=== PATIENT | female | born 1945 | race Caucasian/White ===

== ENCOUNTER 2024-05-07 10:20 | Observation (INO) ==
--- NOTE | 2024-05-07 10:58 | Emergency Department Note ---
Impression & Plan Chronic kidney disease (CKD), stage IV (severe), Constipation ED Provider Note NAME: CASTILLO ROGERS AGE: 79 SEX: F : 1945 ARRIVES VIA: Walk-In INFORMANT: Patient, ED PROVIDER(S): Harpreet Alvarez DO CHIEF COMPLAINT: Constipation HPI: The patient is a 79-year-old female who presented to the emergency department for constipation. She has had several days of constipation. She has tried zabb-iso-cznfshq remedies without relief. She called her family doctor but was not able to be seen. Patient denies having any vomiting or fever. She denies having any significant abdominal pain but does note some cramping. ROS: See above HPI for pertinent positives & negatives. A total of 10 systems reviewed and were otherwise negative. PAST MEDICAL HISTORY: See Below PAST SURGICAL HISTORY: See Below FAMILY HISTORY: See Below SOCIAL HISTORY: See Below HOME MEDICATIONS: See Below ALLERGIES: See Below VITALS: See Below PHYSICAL EXAMINATION: GENERAL: Patient is awake alert in no acute distress patient is resting comfortably and showing no signs of anxiety EYES: The conjunctivae are clear. The pupils are round and reactive. EARS, NOSE, MOUTH AND THROAT: The nose is without any evidence of any deformity. NECK: The neck is nontender and supple. RESPIRATORY: Normal respiratory effort is noted there is no evidence of wheezing rhonchi or rales CARDIOVASCULAR: Regular rate and rhythm noted there no murmurs rubs or gallops normal S1 normal S2. GASTROINTESTINAL: The abdomen is soft and mildly distended. There is no tenderness guarding rigidity. MUSCULOSKELETAL/EXTREMITIES: There is no evidence of gross deformity full range of motion is noted in the hips and shoulders. SKIN: Pedal edema was noted bilaterally. Skin was warm. Venous stasis changes were noted. NEUROLOGIC: Patient is awake alert and oriented x3 MEDICAL DECISION MAKING: The patient is a 79-year-old female who presented to the emergency department for constipation. The patient has a history of end-stage renal disease. Abdominal exam was not consistent with acute surgical abdomen. The patient was in the emergency department when her primary mail list processor called and asked me to keep her in the hospital be because she needs inpatient dialysis. I discussed the patient's condition with the on-call [facility] hospitalist. They have agreed to evaluate the patient in the emergency department. Triage Nursing notes reviewed. Prior medical records reviewed Vital Signs: reviewed and remarkable for no significant abnormalities Differential diagnosis: Functional constipation, impaction, obstruction, volvulus, metabolic abnormality, infection, neurologic, as well as other pathologies. ER treatment provided: See below Diagnostics interpreted by me: ECG: EKG was obtained in the emergency department. My interpretation is ventricular paced rhythm at 75 bpm. [place] beats were also noted. Left bundle branch block pattern was favored. No previous tracings available. Cardiac Monitoring: An order was placed for continuous cardiac monitoring. The monitor shows a rate of 77 bpm with sinus rhythm. Laboratory studies: As stated above and show below. Imaging studies: See below. Radiographic imaging was reviewed by myself Consultation(s): I discussed this case with Dr. Frederick who is on for nephrology. I discussed this case with the on-call [facility] hospitalist group. Past Med/Surg History Problem List (Updated 05/07/24 @ 14:54 by Harpreet Alvarez DO) Constipation (Acute) MRSA (methicillin resistant staph aureus) culture positive Chronic pain of both lower extremities Hemodialysis patient Chronic kidney disease (CKD), stage IV (severe) (Acute) Abnormal ankle brachial index (Acute) Venous stasis ulcer (Acute) Traumatic wound (Acute) Venous stasis ulcers of both lower extremities (Acute) Contusion of left knee (Acute) Traumatic open wound of left lower leg (Acute) Venous stasis ulcer of left lower leg with edema of left lower leg (Acute) Encounter for pre-operative examination Medical History Artificial cardiac pacemaker Heart attack History of anesthesia reaction Received Sodium Pentothal during wisdom tooth removal...pt states she woke up screaming. History of anesthesia reaction During knee sx 40yrs ago, per pt "they almost lost me", pt unsure what anesthesia was used Osteoarthritis AV fistula L arm; not used History of esophageal dilatation GERD (gastroesophageal reflux disease) Hypothyroidism Diabetes mellitus, type 2 Anemia Diabetic retinopathy Glaucoma Claustrophobia Hypertension Cardiac murmur Aortic stenosis Asthma inhaler prn Surgical History Aortic valve replaced Status post biopsy of kidney benign History of colonoscopy History of esophagogastroduodenoscopy (EGD) History of tooth extraction wisdom teeth Status post medial meniscus repair right History of tonsillectomy and adenoidectomy History of bilateral cataract extraction Status post laser trabeculoplasty of eye bilt Family History Mother Family history of esophageal cancer Social History Smoking Status: Never smoker Second Hand Exposure: Yes (father/mother smoked); Do You Dip or Chew Tobacco: No; Hx Alcohol Use: Yes Alcohol type: wine Alcohol Intake Frequency Comment: OCCASIONALLY, "NOT VERY OFTEN" Hx Substance Use: No Preferred Language: Estonian Communication Ability: Effective Visual Impairment: Partially Limited Hearing Ability: Normal Fringe Knotter Required: No Beliefs That Will Affect Care: Amish Amish Beliefs: Religion marital status: Single Current Living Situation: Personal Care Facility Current Living Situation Comment: Independent living current occupational status: retired other: Leigh King PCP, Dr. Caed- Brownell Operator. Dr. Bone Feels Safe at Home: Yes Diet: diabetic and low salt during the past year weight has: remained stable Assistive Devices: Glasses Allergies Allergies Allergy/AdvReac Type Severity Reaction Status Date / Time codeine Allergy Intermediate Hallucinati Verified 04/22/24 11:41 ng silver Allergy Intermediate Verified 04/22/24 11:41 amlodipine Allergy Mild "extreme Verified 04/22/24 11:41 water retention" arformoterol [From Brovana] Allergy Mild asthma Verified 04/22/24 11:41 flare up NSAIDS (Non-Steroidal Allergy Mild "felt like Verified 04/22/24 11:41 Anti-Inflamma I was swallowing a burning coal" bacitracin Allergy Unknown RASH Verified 04/22/24 11:41 budesonide Allergy Unknown ITCHING IN Verified 04/22/24 11:41 THROAT AND EARS AFTER USE calamine Allergy Unknown RASH Verified 04/22/24 11:41 neomycin Allergy Unknown RASH Verified 04/22/24 11:41 Penicillins Allergy Unknown HIVES/FLUSH Verified 04/22/24 11:41 ING polymyxin B Allergy Unknown RASH Verified 04/22/24 11:41 shrimp Allergy Unknown "JUST Verified 04/22/24 11:41 SHRIMP" - HIVES Sulfa (Sulfonamide Allergy Unknown UNKNOWN Verified 04/22/24 11:41 Antibiotics) REACTION - "HAD ON CHART SINCE ." chondroitin sulfate A AdvReac Unknown AFFECTS Verified 04/22/24 11:41 EYES thimerosal AdvReac Unknown TACHYCARDIA Verified 04/22/24 11:41 Home Meds Home Medications Medication Instructions Recorded Confirmed albuterol sulfate 90 mcg/actuation 1 puff inhalation Q4 PRN Shortness 04/17/18 05/07/24 aerosol inhaler (ProAir HFA) Of Breath aspirin 81 mg tablet,delayed 81 mg PO QPM 04/17/18 05/07/24 release (Shannan Low Dose Aspirin) bisacodyl 5 mg tablet,delayed 5 mg PO QPM 04/17/18 05/07/24 release (Dulcolax (bisacodyl)) brinzolamide 1 %-brimonidine 0.2 % 1 drp ophthalmic (eye) BID 04/17/18 05/07/24 eye drops,suspension (Simbrinza) calcium carbonate (Tums) 300 mg PO DAILY PRN Acid Reflux 04/17/18 05/07/24 cholecalciferol (vitamin D3) 25 1,000 unit PO 5XWK 04/17/18 05/07/24 mcg (1,000 unit) capsule famotidine 10 mg tablet 10 mg PO BID 04/17/18 05/07/24 gelatin 600 mg capsule 1 tab PO BID 04/17/18 05/07/24 levothyroxine 100 mcg tablet 150 mcg PO QAM 04/17/18 01/01/24 mohxbzpjnsvp-bezukgqq-rjtfvvm-folic 1 tab PO QPM 04/17/18 05/07/24 acid 400 mcg-vit K1 20 mcg tablet (One-A-Day Women's 50 Plus) polyethylene glycol 3350 17 1 dose PO DAILY PRN Constipation 04/17/18 05/07/24 gram/dose oral powder (Miralax) psyllium husk 0.52 gram capsule 1 cap PO BID 04/17/18 05/07/24 (Metamucil) insulin aspart U-100 100 unit/mL 1 sliding scale dose subcut 06/05/23 05/07/24 subcutaneous cartridge (Novolog USEASDIRECTD PenFill U-100 Insulin aspart) insulin glargine 100 unit/mL (3 8 unit subcut QPM 06/05/23 05/07/24 mL) subcutaneous pen (Lantus Solostar U-100 Insulin) loratadine 10 mg tablet (Claritin) 5 mg PO BID 06/05/23 05/07/24 wbhcoulw-ytm-UQ 200 mcg-vit K 15 2 tab PO DAILY 06/05/23 05/07/24 mcg-lycope 150 khr-vwlayi-vics tablet (Ocuvite Eye Plus Multi) sevelamer HCl 800 mg tablet 800 mg PO BID 06/05/23 05/07/24 (Renagel) fluticasone 100 mcg-salmeterol 50 1 inh inhalation BID 12/13/23 05/07/24 mcg/dose blistr powdr for inhalation (Advair Diskus) Previous Rx's Medication Instructions Recorded ammonium lactate 12 % topical cream 1 applic topical DAILY 30 days 06/12/23 #385 grams Results & Data (ED) Vital Signs Vital Signs - 24 hr 05/07/24 10:22 05/07/24 11:58 05/07/24 12:16 Temperature 36 C L Temperature Source Skin Pulse Rate 78 78 73 Pulse Rate [Apical] Pulse Rhythm [Apical] Pulse Strength [Apical] Respiratory Rate 20 20 Respiratory Effort / Characteristics Non-Labored Spontaneous Respiratory Depth Normal Respiratory Pattern Regular Blood Pressure 138/80 Blood Pressure [Right Arm] Blood Pressure Mean 99 Blood Pressure Mean [Right Arm] Blood Pressure Position [Right Arm] Pulse Oximetry 98 98 Oxygen Delivery Method Room Air Room Air Sepsis Recent Fever Within 48 Hours No Sepsis New/Unexplained Change in Mental Status N/A Sepsis Action Taken by Nursing No Action Required 05/07/24 12:24 05/07/24 14:20 Temperature Temperature Source Pulse Rate Pulse Rate [Apical] 75 77 Pulse Rhythm [Apical] Regular Pulse Strength [Apical] Normal Respiratory Rate 18 16 Respiratory Effort / Characteristics Non-Labored Non-Labored Respiratory Depth Normal Normal Respiratory Pattern Regular Regular Blood Pressure Blood Pressure [Right Arm] 147/61 H 147/61 H Blood Pressure Mean Blood Pressure Mean [Right Arm] 89 89 Blood Pressure Position [Right Arm] Sitting Lying Pulse Oximetry 98 97 Oxygen Delivery Method Room Air Room Air Sepsis Recent Fever Within 48 Hours Sepsis New/Unexplained Change in Mental Status Sepsis Action Taken by [place] Medications Current Medication List: was personally reviewed by me Laboratory Data Attestation: I reviewed the patient's lab results. 05/07/24 12:22 05/07/24 12:22 Lab Results 11/13/24 11/13/24 Range/Units 12:22 12:28 WBC 4.53 L (4.8-10.8) K/ul RBC 3.20 L (4.20-5.40) M/uL Hgb 10.4 L (12.0-16.0) g/dl Hct 31.2 L (37.0-47.0) % MCV 97.5 (80.0-100.0) fL MCH 32.5 (25.0-34.0) pg MCHC 33.3 (32.0-36.0) g/dL RDW Std Deviation 58.5 H (36.4-46.3) fL RDW Coeff of Cinda 16.4 H (11.5-14.5) % Plt Count 219 (130-400) K/uL MPV 9.9 (9.4-12.4) fL Immature Gran % (Auto) 0.7 % Neut % (Auto) 67.9 % Lymph % (Auto) 11.7 % [place] % (Auto) 15.5 % Eos % (Auto) 2.9 % Baso % (Auto) 1.3 % Neut # (Auto) 3.08 (1.40-6.50) K/uL Lymph # (Auto) 0.53 L (1.20-3.40) K/uL [place] # (Auto) 0.70 H (0.11-0.59) K/uL Eos # (Auto) 0.13 (0.00-0.50) K/uL Baso # (Auto) 0.06 (0.00-0.20) K/uL Immature Gran # (Auto) 0.03 (0.01-0.20) K/uL PT 11.2 (9.0-12.0) Seconds INR 1.0 (0.9-1.1) APTT 29 (21-31) Seconds PTT Ratio 1.1 Sodium 136 (136-145) mmol/L Potassium 3.8 (3.5-5.1) mmol/L Chloride 90 L (98-107) mmol/L Carbon Dioxide 34 H (21-32) mmol/L Anion Gap 12 H (3-11) BUN 40 H (6-23) mg/dl Creatinine 6.28 H* (0.6-1.2) mg/dl Est Cr Clr Drug Dosing 7.2 ml/min eGFR 6.32 BUN/Creatinine Ratio 6.4 L (10-20) Glucose 159 H (70-99(Fasting)) mg/dl Calcium 9.4 (8.6-10.3) mg/dl Total Bilirubin 0.8 (0.2-1.0) mg/dl AST 13 (13-39) U/L ALT 7 (7-52) U/L Alkaline Phosphatase 99 (34-104) U/L Troponin I High Sens 17.2 H (0-14) pg/ml Total Protein 6.8 (6.0-8.3) gm/dl Albumin 3.5 (3.4-5.0) gm/dl Globulin 3.3 (2.5-4.0) gm/dl Albumin/Globulin Ratio 1.1 (0.9-2) Lipase 16 (11-82) U/L SARS-CoV-2, RNA, NAAT NEGATIVE (NEGATIVE) Imaging Data Attestation: I personally reviewed and interpreted this imaging study as follows: My Impression: 1 view chest x-ray was obtained in the emergency department. My interpretation is cardiomegaly with increased vascular congestion, final report below. Radiologist's Impression: KUB X-Ray 05/07/24 10:54 KUB CLINICAL HISTORY: Constipation. COMPARISON STUDY: None. FINDINGS: Severe left hip osteoarthritis is incidentally noted. There is extensive vascular calcification. The bowel gas pattern is normal. The amount of stool is within normal limits. A ajoz-wg-buyqsnva amount of stool is present. Mild lumbar spine dextroscoliosis. IMPRESSION: 1. No evidence for a bowel obstruction. 2. Amount of stool within normal limits. ACT 112: Negative or not required by law. Electronically signed by: Basil Trivedi M.D. 05/07/2024 11:37 AM Chest X-Ray 05/07/24 11:48 XR chest 1V portable HISTORY: 79 years-old Female Chest pain, nonspecific COMPARISON: None TECHNIQUE: AP view of the chest FINDINGS: Cardiac silhouette is enlarged. Electronic device projects over the left heart border. Pulmonary vascular congestion. Probable trace pleural effusions with mild bibasilar densities. No pneumothorax. Left axillary surgical clips. Bones appear grossly intact. IMPRESSION: 1. Cardiomegaly with pulmonary vascular congestion. 2. Probable trace pleural effusions with mild bibasilar atelectasis. ACT 112: Negative or not required by law. The above report was generated using voice recognition software. It may contain grammatical, syntax or spelling errors. Electronically signed by: Ignacio Faulkner M.D. 05/07/2024 12:11 PM Discharge Plan Visit Data Chief Complaint: Constipation Stated Complaint: CONSTIPATION/1 WEEK ED Provider: Harpreet Alvarez Discharge Problem: Chronic kidney disease (CKD), stage IV (severe), Constipation Patient Disposition: Being Evaluated by Hospitalist Forms Stand Alone Forms: [facility] Prescriptions Prescriptions: No Action Ocuvite Eye Plus Multi 200-15-150 mcg tablet 2 tab PO DAILY Rx Instructions: administer with a meal and a large glass of water insulin aspart U-100 [Novolog PenFill U-100 Insulin] 100 unit/mL cartridge 1 sliding scale dose subcut USEASDIRECTD Patient Comments: Pt states she is not doing this anymore due to losing appetite on dialysis and needs to see an tuck pointer. loratadine [Claritin] 10 mg tablet 5 mg PO BID ammonium lactate 12 % cream 1 applic topical DAILY 30 Days Qty: 385 3RF Rx Instructions: Apply to skin of lower legs and feet daily. Do not apply to open wounds. fluticasone propion-salmeterol [Advair Diskus] 100-50 mcg/dose blister with device 1 inh inhalation BID famotidine 10 mg Tablet 10 mg PO BID Tums 300 mg (750 mg) Tablet,Chewable 300 mg PO DAILY PRN (Reason: Acid Reflux) aspirin [Shannan Low Dose Aspirin] 81 mg Tablet,Delayed Release (Dr/Ec) 81 mg PO QPM levothyroxine 100 mcg Tablet 150 mcg PO QAM bisacodyl [Dulcolax (bisacodyl)] 5 mg Tablet,Delayed Release (Dr/Ec) 5 mg PO QPM polyethylene glycol 3350 [Miralax] 17 gram/dose Powder 1 dose PO DAILY PRN (Reason: Constipation) albuterol sulfate [ProAir HFA] 90 mcg/actuation Hfa Aerosol Inhaler 1 puff INHALATION Q4 PRN (Reason: Shortness Of Breath) gelatin 600 mg Capsule 1 tab PO BID cholecalciferol (vitamin D3) 1,000 unit Capsule 1,000 unit PO 5XWK psyllium husk [Metamucil] 0.52 gram Capsule 1 cap PO BID Simbrinza 1-0.2 % Drops,Suspension 1 drp OPHTHALMIC (EYE) BID One-A-Day Women's 50 Plus 400-20 mcg Tablet 1 tab PO QPM Lantus Solostar U-100 Insulin 100 unit/mL (3 mL) insulin pen 8 unit SUBCUT QPM sevelamer HCl [Renagel] 800 mg tablet 800 mg PO BID Referrals Referrals: Amada Vasquez MD [Primary Care Provider] - Discharge Problem: Constipation Qualifiers: Constipation type: unspecified constipation type Qualified Code(s): K59.00 - Constipation, unspecified
--- NOTE | 2024-05-07 11:38 | XRay Report ---
KUB CLINICAL HISTORY: Constipation. COMPARISON STUDY: None. FINDINGS: Severe left hip osteoarthritis is incidentally noted. There is extensive vascular calcifica tion. The bowel gas pattern is normal. The amount of stool is within normal limits. A ccnh-li-kqfnrnk e amount of stool is present. Mild lumbar spine dextroscoliosis. IMPRESSION: 1. No evidence for a bowel obstruction. 2. Amount of stool within normal limits. ACT 112: Negative or not required by law. Electronically signed by: Basil Trivedi M.D. 05/07/2024 11:37 AM
--- NOTE | 2024-05-07 12:12 | XRay Report ---
XR chest 1V portable HISTORY: 79 years-old Female Chest pain, nonspecific COMPARISON: None TECHNIQUE: AP view of the chest FINDINGS: Cardiac silhouette is enlarged. Electronic device projects over the left heart border. Pulmonary vasc ular congestion. Probable trace pleural effusions with mild bibasilar densities. No pneumothorax. Lef t axillary surgical clips. Bones appear grossly intact. IMPRESSION: 1. Cardiomegaly with pulmonary vascular congestion. 2. Probable trace pleural effusions with mild bibasilar atelectasis. ACT 112: Negative or not required by law. The above report was generated using voice recognition software. It may contain grammatical, syntax o r spelling errors. Electronically signed by: Ignacio Faulkner M.D. 05/07/2024 12:11 PM
[2024-05-07] MEDS ORDERED: bisacodyL 10 MG SUPP PR PRN (12:37)
[2024-05-07] MEDS ORDERED: MINERAL OIL ENEMA 133 ML BTL PR PRN (12:37)
[2024-05-07 12:49] LABS: Basophils # (auto) 0.06 K/uL (0.00-0.20); Basophils % (auto) 1.3 %; Eosinophils # (auto) 0.13 K/uL (0.00-0.50); Eosinophils % (auto) 2.9 %; Hematocrit (blood only) 31.2 % (37.0-47.0); Hemoglobin 10.4 g/dl (12.0-16.0); Immature Granulocytes # (auto) 0.03 K/uL (0.01-0.20); Immature Granulocytes % (auto) 0.7 %; Lymphocytes # (auto) 0.53 K/uL (1.20-3.40); Lymphocytes % (auto) 11.7 %; Mean Corpuscular Hemoglobin 32.5 pg (25.0-34.0); Mean Corpuscular Hgb Conc 33.3 g/dL (32.0-36.0); Mean Corpuscular Volume 97.5 fL (80.0-100.0); Mean Platelet Volume 9.9 fL (9.4-12.4); Monocytes % (auto) 15.5 %; Neutrophils # (auto) 3.08 K/uL (1.40-6.50); Neutrophils % (auto) 67.9 %; Platelet Count 219 K/uL (130-400); RDW Coefficient of Variation 16.4 % (11.5-14.5); RDW Standard Deviation 58.5 fL (36.4-46.3); White Blood Count 4.53 K/ul (4.8-10.8)
[2024-05-07 13:08] LABS: Albumin Globulin Ratio 1.1 (0.9-2); Albumin Level 3.5 gm/dl (3.4-5.0); BUN Creatinine Ratio 6.4 (10-20); Bilirubin,Total 0.8 mg/dl (0.2-1.0); Calcium 9.4 mg/dl (8.6-10.3); Creatinine Clr Calc Pharmacy 7.2 ml/min; Globulin 3.3 gm/dl (2.5-4.0); Potassium 3.8 mmol/L (3.5-5.1); Total Protein 6.8 gm/dl (6.0-8.3)
[2024-05-07 13:10] LABS: Troponin I High Sensitivity 17.2 pg/ml (0-14)
[2024-05-07 13:24] LABS: Partial Thromboplastin Ratio 1.1; Partial Thromboplastin Time 29 Seconds (21-31); Prothrombin Time 11.2 Seconds (9.0-12.0)
[2024-05-07] MEDS ORDERED: Nursing to Pharmacy Communication SCH (15:30)
--- NOTE | 2024-05-07 15:31 | Communication Note ---
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 Patient reports her usual bowel movement is daily in the evening. Patient reports moving gas, reports occasional lower belly pain but no tenderness on exam at bedside. Patient reports appetite being down as she was not able to move bowel but denies vomiting. Patient denies shortness of breath or sore throat or worsening of her respiratory status. Labs and imaging reviewed: CBC about her baseline. BMP about her baseline. X-ray KUB with no evidence of bowel obstruction, amount of stool within normal limits. CXR with pulmonary vascular congestion with bibasilar atelectasis. Active problems: Constipation: Enema and suppository, follow response. Continue with bowel regimen. Change abimael bowel regimen to prn once pt starts moving bowels. Chronic BLE venous stasis wounds: Patient on antibiotic, continue. Wound care consult. ESRD on hemodialysis: Nephrology consult, due for hemodialysis today. 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 Continue to monitor. c/w other home meds. On exam: GENERAL: Alert and oriented x3. NAD, on RA. Noisy breathing noted. appears weak/elderly. HEENT: No pallor, no icterus. Pupils equal, round and reactive to light. Oral mucosa moist. NECK: No JVD, no neck masses. HEART: S1 and S2 heard. Regular rate and rhythm. + murmur, no gallop. RESPIRATORY SYSTEM: Normal AP diameter. No accessory muscle use. No wheezing, no crackles. b/l rhonci (chronic per pt) ABDOMEN: Soft, bowel sounds present, nontender, no distention. CENTRAL NERVOUS SYSTEM: No facial droop. Speech is clear. Obeys simple commands. Moves extremities. EXTREMITIES: trace ble edema, Chr skin changes noted, lower leg w/ clean dressing wo soakage. I have seen and examined the patient and have discussed the case with the provider above. I agree with the assessment and plan as stated. Time spent: 35 min.
[2024-05-07] MEDS: POLYETHYLENE (MIRALAX) 17 GM PACK PO ONE (15:38)
[2024-05-07] MEDS ORDERED: ACETAMINOPHEN 325 MG TAB PO PRN (15:39)
--- NOTE | 2024-05-07 16:07 | History & Physical Report ---
Date of Service May 07, 2024 Assessment & Plan (1) Constipation: (2) MRSA (methicillin resistant staph aureus) culture positive: (3) Hemodialysis patient: (4) Chronic kidney disease (CKD), stage IV (severe): (5) Diabetes mellitus, type 2: (6) Hypertension: (7) Cardiac murmur: (8) Aortic stenosis: (9) Aortic valve replaced: Plan Assessment and plan: Constipation: KUB unremarkable for any obstruction, continue MiraLAX Add Dulcolax suppository and mineral oil enema Chronic bilateral lower extremity venous stasis wounds Hx MRSA Follows with wound care outpatient, currently on Doxy for 14 days with 8 days left Plan for completion on 05/15/2024, continue this, consult wound care while inpatient Hx DM2: Takes 8 units long-acting insulin at bedtime, sugar low at 68 today SSI/4 times daily BGM, CTM, can add long-acting as needed Hx ESRD on dialysis: Nephrology consulted, dialysis days M/W/F Tracheal stenosis No hypoxia noted, nebs as needed, patient reports breathing at baseline A total of 60 minutes was spent on chart review/reviewing diagnostic data/facilitation plan of care/discussion with consultants Full code DVT prophylaxis: Heparin subcu Admission and Anticipated Discharge Date Admission Date: May 07, 2024 History of Present Illness Chief Complaint: Constipation Primary Care Provider: Amada Vasquez MD The patient is a 79-year-old female with a past medical history of tracheal stenosis, mild intermittent asthma, DM2, HLD, CKD stage V on ESRD, TAVR who presents to the ED on 05/07/2024 with concern of constipation. Patient reports that she has been unable to move her bowels over the past few days. She reports taking MiraLAX as needed at home and this has not been helping her. She reports some intermittent nausea but denies any vomiting. She is not tender on exam. Patient denies any increased shortness of breath/chest pain/fever/chills. Patient does report some weight gain which she talk to nephrology about. Reports compliance with her dialysis sessions. On arrival to the ED, Labs are remarkable for WBC 4, hemoglobin 10.4, chloride 90, bicarb 34, anion gap 12, BUN 40, creatinine 6.28, glucose 159, COVID was negative Chest x-ray showed cardiomegaly with pulmonary congestion KUB was negative for bowel obstruction The patient will be admitted for inpatient dialysis with recent weight gain and will be further treated for constipation. Allergies Allergy/AdvReac Type Severity Reaction Status Date / Time codeine Allergy Intermediate Hallucinati Verified 04/22/24 11:41 ng silver Allergy Intermediate Verified 04/22/24 11:41 amlodipine Allergy Mild "extreme Verified 04/22/24 11:41 water retention" arformoterol [From Brovana] Allergy Mild asthma Verified 04/22/24 11:41 flare up NSAIDS (Non-Steroidal Allergy Mild "felt like Verified 04/22/24 11:41 Anti-Inflamma I was swallowing a burning coal" bacitracin Allergy Unknown RASH Verified 04/22/24 11:41 budesonide Allergy Unknown ITCHING IN Verified 04/22/24 11:41 THROAT AND EARS AFTER USE calamine Allergy Unknown RASH Verified 04/22/24 11:41 neomycin Allergy Unknown RASH Verified 04/22/24 11:41 Penicillins Allergy Unknown HIVES/FLUSH Verified 04/22/24 11:41 ING polymyxin B Allergy Unknown RASH Verified 04/22/24 11:41 shrimp Allergy Unknown "JUST Verified 04/22/24 11:41 SHRIMP" - HIVES Sulfa (Sulfonamide Allergy Unknown UNKNOWN Verified 04/22/24 11:41 Antibiotics) REACTION - "HAD ON CHART SINCE ." chondroitin sulfate A AdvReac Unknown AFFECTS Verified 04/22/24 11:41 EYES thimerosal AdvReac Unknown TACHYCARDIA Verified 04/22/24 11:41 Home Medications Medication Instructions Recorded Confirmed Type albuterol sulfate 90 mcg/actuation 1 puff inhalation Q4 PRN Shortness 04/17/18 05/07/24 History aerosol inhaler (ProAir HFA) Of Breath aspirin 81 mg tablet,delayed 81 mg PO QPM 04/17/18 05/07/24 History release (Shannan Low Dose Aspirin) bisacodyl 5 mg tablet,delayed 5 mg PO QPM 04/17/18 05/07/24 History release (Dulcolax (bisacodyl)) brinzolamide 1 %-brimonidine 0.2 % 1 drp ophthalmic (eye) BID 04/17/18 05/07/24 History eye drops,suspension (Simbrinza) calcium carbonate (Tums) 300 mg PO DAILY PRN Acid Reflux 04/17/18 05/07/24 History cholecalciferol (vitamin D3) 25 1,000 unit PO 5XWK 04/17/18 05/07/24 History mcg (1,000 unit) capsule famotidine 10 mg tablet 10 mg PO BID 04/17/18 05/07/24 History gelatin 600 mg capsule 1 tab PO BID 04/17/18 05/07/24 History levothyroxine 100 mcg tablet 150 mcg PO QAM 04/17/18 01/01/24 History hxezlivwaane-mjpjlykv-exusnxe-folic 1 tab PO QPM 04/17/18 05/07/24 History acid 400 mcg-vit K1 20 mcg tablet (One-A-Day Women's 50 Plus) polyethylene glycol 3350 17 1 dose PO DAILY PRN Constipation 04/17/18 05/07/24 History gram/dose oral powder (Miralax) psyllium husk 0.52 gram capsule 1 cap PO BID 04/17/18 05/07/24 History (Metamucil) insulin aspart U-100 100 unit/mL 1 sliding scale dose subcut 06/05/23 05/07/24 History subcutaneous cartridge (Novolog USEASDIRECTD PenFill U-100 Insulin aspart) insulin glargine 100 unit/mL (3 8 unit subcut QPM 06/05/23 05/07/24 History mL) subcutaneous pen (Lantus Solostar U-100 Insulin) loratadine 10 mg tablet (Claritin) 5 mg PO BID 06/05/23 05/07/24 History uomcdawj-wsj-WO 200 mcg-vit K 15 2 tab PO DAILY 06/05/23 05/07/24 History mcg-lycope 150 iil-tshpbe-vnoy tablet (Ocuvite Eye Plus Multi) sevelamer HCl 800 mg tablet 800 mg PO BID 06/05/23 05/07/24 History (Renagel) ammonium lactate 12 % topical cream 1 applic topical DAILY 30 days 06/12/23 05/07/24 Rx #385 grams fluticasone 100 mcg-salmeterol 50 1 inh inhalation BID 12/13/23 05/07/24 History mcg/dose blistr powdr for inhalation (Advair Diskus) Past Med/Surg History Problem List (Updated 05/07/24 @ 14:54 by Harpreet Alvarez DO) Constipation (Acute) MRSA (methicillin resistant staph aureus) culture positive Chronic pain of both lower extremities Hemodialysis patient Chronic kidney disease (CKD), stage IV (severe) (Acute) Abnormal ankle brachial index (Acute) Venous stasis ulcer (Acute) Traumatic wound (Acute) Venous stasis ulcers of both lower extremities (Acute) Contusion of left knee (Acute) Traumatic open wound of left lower leg (Acute) Venous stasis ulcer of left lower leg with edema of left lower leg (Acute) Encounter for pre-operative examination Medical History Artificial cardiac pacemaker Heart attack History of anesthesia reaction Received Sodium Pentothal during wisdom tooth removal...pt states she woke up screaming. History of anesthesia reaction During knee sx 40yrs ago, per pt "they almost lost me", pt unsure what anesthesia was used Osteoarthritis AV fistula L arm; not used History of esophageal dilatation GERD (gastroesophageal reflux disease) Hypothyroidism Diabetes mellitus, type 2 Anemia Diabetic retinopathy Glaucoma Claustrophobia Hypertension Cardiac murmur Aortic stenosis Asthma inhaler prn Surgical History Aortic valve replaced Status post biopsy of kidney benign History of colonoscopy History of esophagogastroduodenoscopy (EGD) History of tooth extraction wisdom teeth Status post medial meniscus repair right History of tonsillectomy and adenoidectomy History of bilateral cataract extraction Status post laser trabeculoplasty of eye bilt Family History Mother Family history of esophageal cancer Social History Smoking Status: Never smoker Second Hand Exposure: Yes (father/mother smoked); Do You Dip or Chew Tobacco: No; Hx Alcohol Use: Yes Alcohol type: wine Alcohol Intake Frequency Comment: OCCASIONALLY, "NOT VERY OFTEN" Hx Substance Use: No Preferred Language: Citizen Of [place] Communication Ability: Effective Visual Impairment: Partially Limited Hearing Ability: Normal Step Down Nurse Required: No Beliefs That Will Affect Care: Spiritism Spiritism Beliefs: Uatsdin marital status: Single Current Living Situation: Personal Care Facility Current Living Situation Comment: Independent living current occupational status: retired other: Leigh King PCP, Dr. Cade- [employer]. Dr. Bone Feels Safe at Home: Yes Diet: diabetic and low salt during the past year weight has: remained stable Assistive Devices: Glasses Review of Systems Review of Systems: All systems reviewed & are unremarkable except as noted in HPI & below Physical Exam Constitutional: WD/WN, vitals as above Eyes: PERRL, conjunctivae normal, anicteric sclerae ENMT: external ear and nose normal, oropharynx normal Neck: trachea midline, no thyromegaly Respiratory: normal respiratory effort, lungs clear to auscultation (Bilateral wheezing, patient reports at baseline) Cardiovascular: RRR, no murmur, no edema Gastrointestinal (Abdomen): normal bowel sounds, soft, nontender, no hepatosplenomegaly (Reports bloating, no tenderness on exam) Musculoskeletal: no cyanosis or clubbing, extremities motor strength 5/5 Skin: no rashes, warm and dry Neurologic: PERRL, EOMI, accommodation nl, no face palsy, no dysarthria Psychiatric: A+Ox3, euthymic affect Lymphatic: no cervical or axillary lymphadenopathy Results & Data Results & Data Vital Signs (Past 12 Hours) Vital Signs Temp Pulse Pulse Resp BP BP Pulse Ox 05/07/24 15:54 74 16 124/58 L 97 05/07/24 14:20 77 16 147/61 H 97 05/07/24 12:24 75 18 147/61 H 98 05/07/24 12:16 73 05/07/24 11:58 78 20 98 05/07/24 10:22 36 C L 78 20 138/80 98 O2 Del Method 05/07/24 15:54 Room Air 05/07/24 14:20 Room Air 05/07/24 12:24 Room Air 05/07/24 12:16 05/07/24 11:58 Room Air 05/07/24 10:22 Room Air Supervising Physician Co-Signing Physician Notes See communication note. (1) Constipation Constipation type: unspecified constipation type Qualified Code(s): K59.00 - Constipation, unspecified
[2024-05-07] MEDS: bisacodyL 10 MG SUPP PR SCH (16:50)
[2024-05-07] MEDS ORDERED: GLUCAGON FOR INJ 1 MG VIAL SQ PRN (18:00)
[2024-05-07] MEDS ORDERED: GLUCOSE 40% GEL 15 GM TUBE PO PRN (18:00)
[2024-05-07] MEDS ORDERED: CARBOHYDRATES FOR HYPOGLYCEMIA PO PRN (18:00)
[2024-05-07] MEDS ORDERED: ALBUTEROL HFA 8 GM INHALER INH PRN (18:00)
[2024-05-07] MEDS ORDERED: DEXTROSE 50% 50 ML SYRINGE IV PRN (18:00)
[2024-05-07] MEDS ORDERED: GLUCOSE 10 TAB/TUBE PO PRN (18:00)
[2024-05-07] MEDS: MINERAL OIL ENEMA 133 ML BTL PR SCH (18:01)
[2024-05-07] MEDS: INSULIN ASPART PER UNIT CHARGE SC SCH (18:21)
[2024-05-07] MEDS: ASPIRIN 81 MG ECTAB PO SCH (20:28)
[2024-05-07] MEDS: BRIMONIDINE TARTRATE 0.2% 5ML OP SCH (20:32)
[2024-05-07] MEDS: BRINZOLAMIDE (AZOPT) OPS 10 ML BTL OP SCH (20:32)
[2024-05-07] MEDS: FLUTICASONE/VILANTEROL 100/25MCG 14 PUFFS/INHALER INH SCH (20:32)
[2024-05-07] MEDS: HEPARIN SOD 5,000 UNIT/0.5 ML VIAL SQ SCH (20:32)
[2024-05-07] MEDS: SEVELAMER CARBONATE 800 MG TAB PO SCH (20:33)
--- OUTSIDE RECORDS SUMMARY | 2024-05-07 20:33 | External Medical Summary | Summary of Care ---
Author Name Unknown Organization [facility] Address [address] [place] [address] Phone [phone] Care Team Providers Care Photographic Double Name Role Phone Amada Vasquez MD Primary Care Provider [phone] Reason for Visit * Reason Onset Date Comments Abnormal Test Results 04/28/2024 TSH Encounter Details Date Type Department Care Team (Late st Contact Info) Description 04/28/2024 Telephone General Internal Medicine [facility] [address] [facility] [place] [address] Amada Vasquez MD [address] [place] [address] Abnormal Test Results (TSH) Allergies Active Allergy Reactions Criticality Noted Date Comments Adhesive Tape 05/20/2019 Amlodipine 08/20/2019 Arformoterol Other (Please comment) 11/02/2015 Flare of asthma Budesonide Itching 03/04/2014 Pt reports itching in throat and ears after use. Calamine 11/16/1999 Chondroitin 05/27/2010 Affect eyes Codeine Other (Please comment) 01/28/2019 nightmares Ipratropium [place] [facility] Cough 11/02/2015 Penicillins 11/16/1999 Statins Edema Other 05/08/2018 Severe swelling throughout body Sulfa Antibiotics 11/16/1999 Thimerosal (Thiomersal) Hives 09/14/2010 Neomycin-Bacitracin Zn-Polymyx Rash 09/14/2010 documented as of this encounter (statuses as of 04/28/2024) Medications Medication Sig Dispensed Refills Start Date End Date Status GELATIN 600 MG PO CAPS one by mouth daily Active ONE-A-DAY 50 PLUS PO TABS 08/23/2012 Active BLOOD PRESSURE MONITOR/L CUFF MISCIndications:Prote inuria,HTN, goal below 130/80 for home bp log 1 Device 0 09/30/2012 Active ASPIRIN 81 MG PO TABSIndications:Kidne y disease, chronic, stage IV (GFR 15-29 ml/min) ([facility]),Nephrotic syndrome 1 TABLET DAILY 30 Tab 5 02/04/2014 Active loratadine (CLARITIN) 10 MG TabletIndications:Tra cheitis, chronic, with laryngitis,Asthma with severity to be determined,Chronic frontal sinusitis 1/2 tab daily 30 Tab 5 11/03/2015 Active famotidine (PEPCID) 20 MG TabletIndications:Gas troesophageal reflux disease, esophagitis presence not specified Take 1 Tab by mouth 2 times a day. 180 Tab 3 07/12/2016 Active polyethylene glycol 3350 (MIRALAX) 119 gram POWD Take 119 g by mouth daily as needed for Constipation. Active Psyllium (METAMUCIL) 0.52 G Capsule Take 1 Capsule by mouth in the morning. Active Magnesium 100 MG Capsule Take 1 Capsule by mouth once a day on Sunday, Sunday, and Sunday only. Active Cholecalciferol 1000 UNITS TabletIndications:5 x weekly Take 1 Tablet by mouth in the morning. Active zoster vac recomb adjuvanted (SHINGRIX) 50 MCG/0.5ML injectionIndications: Need for shingles vaccine Inject 0.5 mL into a large muscle now and repeat dose in 60 to 180 days. Please fax date this was given to our office. 1 Each 1 01/28/2019 Active Sevelamer HCl 800 MG Oral Tablet (RENAGEL) TAKE ONE TABLET BY MOUTH THREE TIMES DAILY WITH MEALS 270 Tab 2 04/26/2020 Active Additional Information Patient taking differently: Taking twice per day, Reported on 07/12/2023 OneTouch Ultra Blue In Vitro Strip (Glucose Blood)Indications:Pro liferative diabetic retinopathy of both eyes without macular edema associated with diabetes mellitus due to underlying condition ([facility]),Type 2 diabetes mellitus with diabetic nephropathy, with long-term current use of insulin ([facility]) TEST BLOOD SUGAR TWICE DAILY. Dx: E11.21 200 Strip 3 06/21/2020 Active OneTouch UltraSoft LancetsIndications:Ty pe 2 diabetes mellitus with diabetic nephropathy, with long-term current use of insulin ([facility]),Proliferative diabetic retinopathy of both eyes without macular edema associated with diabetes mellitus due to underlying condition ([facility]) Use to test blood sugar twice daily 200 Each 3 06/21/2020 Active BD Pen Needle Short U/F 31G X 8 MM (Insulin Pen Needle)Indications:Ty pe 2 diabetes mellitus with hemoglobin A1c goal of less than 7.0% ([facility]) USE 4 TIMES DAILY DIRECTED 100 Each 5 11/13/2020 Active Mucinex 600 MG Oral Tablet Extended Release 12 Hour (guaiFENesin ER)Indications:Chroni c frontal sinusitis Take 1 Tablet by mouth 2 times a day as needed for Congestion. Take with plenty of water. Do not cut, crush or chew 40 Tab 2 11/16/2020 Active FreeStyle Jose E 2 Sensor once. 05/10/2023 Active Montelukast Sodium 10 MG Oral Tablet (Singulair) TAKE 1 TABLET BY MOUTH EVERY EVENING 90 Tablet 3 06/28/2023 Active Albuterol Sulfate HFA 108 (90 Base) MCG/ACT Inhalation Aerosol SolutionIndications:M ild intermittent asthma with exacerbation Inhale 1 Puff by mouth every 4 hours as needed for Wheezing. 18 g 5 12/04/2023 Active Fluticasone-Salmetero l 250-50 MCG/ACT Inhalation Aerosol Powder Breath Activated (Advair Diskus)Indications:Mi ld intermittent asthma with exacerbation Inhale 1 Puff by mouth in the morning and 1 Puff before bedtime. 1 Each 5 12/04/2023 Active FreeStyle Jose E 3 [place]elford DeviceIndications:Typ e 2 diabetes mellitus with diabetic nephropathy, with long-term current use of insulin ([facility]),Proliferative diabetic retinopathy of both eyes without macular edema associated with diabetes mellitus due to underlying condition ([facility]) Use as directed. E11.9 1 Each 01/15/2024 Active FreeStyle Jose E 3 SensorIndications:Typ e 2 diabetes mellitus with diabetic nephropathy, with long-term current use of insulin ([facility]),Proliferative diabetic retinopathy of both eyes without macular edema associated with diabetes mellitus due to underlying condition ([facility]) Use as directed every 14 days. 6 Each 3 01/15/2024 Active Insulin Glargine 100 UNIT/ML Subcutaneous Solution Pen-injector (Lantus)Indications:T ype 2 diabetes mellitus with hemoglobin A1c goal of less than 7.0% (HCC),Type 2 diabetes mellitus with diabetic nephropathy, with long-term current use of insulin ([facility]) Inject 9 Units under the skin daily. 3 Each 04/08/2024 Active Midodrine HCl 2.5 MG Oral Tablet (Proamatine) Take 1 Tablet by mouth in the morning and 1 Tablet at noon and 1 Tablet before bedtime. 03/29/2024 Active Simbrinza 1-0.2 % Ophthalmic Suspension (Brinzolamide-Brimoni dine)Indications:Diab etic macular edema (HCC) INSTILL ONE DROP INTO RIGHT EYE TWICE DAILY 10 mL 12 04/10/2024 Active Levothyroxine Sodium 150 MCG Oral Tablet (Levoxyl)Indications: Acquired hypothyroidism Take 1 Tablet by mouth in the morning. (at least 30 min prior to breakfast or other meds). 30 Tablet 1 04/26/2024 Active documented as of this encounter (statuses as of 04/28/2024) Active Problems Problem Noted Date Diagnosed Date Anemia of chronic renal failure, stage 5 024 Overview: Per CKD protocol Type 2 diabetes mellitus wit h stage 5 chronic kidney disease not on chronic dialysis, with long-term current use of insulin 02/04/2024 Overview: Per CKD protocol Chronic kidney disease, stage 5 02/04/2024 Overview: Per CKD protocol History of transcatheter aortic valve replacemen t (TAVR) 07/12/2023 Type 2 diabetes mellitus wit h hemoglobin A1c goal of less than 8.0% 11/16/2020 Diabetic ulcer of left lower leg associated with type 2 diabetes mellitus, limited to breakdown of skin 08/20/2019 Mild intermittent asthma with exacerbation 08/20 Hypertensive heart and kidne y disease with chronic diastolic congestive heart failure and stage 4 chronic kidney disease 06/11/2018 Tracheal stenosis 08/22/2016 Type 2 diabetes mellitus wit h diabetic nephropathy, with long-term current use of insulin 07/12/2016 Acquired hypothyroidism 07/12/2016 Diabetic macular edema 08/04/2015 Proliferative diabetic retin opathy of both eyes without macular edema associated with diabetes mellitus due to underlying condition 03/16/2015 HTN, goal below 140/90 09/30/2012 Stable proliferative diabeti c retinopathy of both eyes associated with type 2 diabetes mellitus 12/15/2010 Overview: ICD-10 update of inactive term DYSLIPIDEMIA, GOAL LDL BELOW 100 06/10/2009 Overview: Per Lipid Taxonomy. Generalized OA Statins contraindicated documented as of this encounter (statuses as of 04/28/2024) Resolved Problems Problem Noted Date Diagnosed Date Resolved Date Kidney disease, chronic, sta ge IV (GFR 15-29 ml/min) 11/02/2020 02/07/2024 Overview: Per CKD protocol Body mass index (BMI) of 40. 0 to 44.9 in adult 04/01/2018 12/04/2023 Overview: Per Obesity protocol #1 Type 2 diabetes mellitus wit h stage 4 chronic kidney disease, with long-term current use of insulin 02/05/2018 02/07/2024 Overview: Per CKD protocol Anemia of chronic renal fail ure, stage 4 (severe) 10/02/2017 02/07/2024 Overview: Per CKD protocol #1 Primary osteoarthritis invol ving multiple joints 03/16/2015 11/17/2015 Anemia of chronic renal failure 08/11/2014 10/05/2017 Overview: Per CKD protocol #1 Unspecified pleural effusion 06/04/2014 02/13/2018 Type 2 diabetes mellitus wit h hemoglobin A1c goal of less than 7.5% 04/29/2014 11/21/2017 Overview: ICD-10 update of inactive term Kidney disease, chronic, sta ge IV (GFR 15-29 ml/min) 01/09/2014 11/15/2017 DM type 2 causing CKD stage 3 12/31/2013 01/09/2014 Severe aortic stenosis 12/16/201307/12 Diabetic retinopathy 03/05/2013 09/22/2 015 HTN, goal below 140/80 02/12/201209/30 Overview: Per HTN Protocol #27. HTN, GOAL BELOW 130/80 07/22/200902/14 Overview: Per HTN Taxonomy. Type 2 diabetes mellitus wit h hemoglobin A1c goal of less than 7.0% 04/22/2009 04/29/2014 Overview: Per Diabetes Taxonomy. ICD-10 update of inactive term dysplastic nevi 03/14/2002 02/13/2018 HYPERTENSION NOS 04/30/2009 Overview: Per HTN Taxonomy PURE HYPERCHOLESTEROLEM 05/25 Overview: Per Lipid Taxonomy. Type 2 diabetes mellitus wit h hemoglobin A1c goal of less than 7.0% 04/22/2009 Overview: Per Diabetes Taxonomy. ICD-10 update of inactive term Herpes zoster 02/13/2018 HTN, goal below 140/90 07/22 Overview: Per HTN Taxonomy. documented as of this encounter (statuses as of 04/28/2024) Immunizations Name Administration Dates Next Due COVID-19 mRNA, LNP-s, No Pre serve, 2-Dose Series (NativeAD) 08/25/2020,08/04/2020 COVID-19, MRNA-LNP, PF, 30 M CG/0.3 mL, 12 YRS AND ABOVE, IM (PFIZER-Comirnaty) 04/06/2023 Hepatitis B, 20+ yrs 09/14/2015,04/22/2015,03/16 Pneumococcal Conjugate Vacc, 13 Valent (Prevnar) 02/13/2018 Pneumococcal Conjugate Vacci ne, 7 Valent 04/25/2007 Pneumococcal Polysaccharide PPV23 (Pneumovax) 11/20/2013 Seasonal Influenza Vac., MDV , IM, 0.5 mL (Fluzone) 04/06/2023,03/16/2015,04/29/2014,11/0 12/2011,03/22/2011,03/18/2010,03/31/20 09,04/25/2007,05/16/2006 Seasonal Influenza Virus Vac cine, Unspecified Formulation 04/06/2023 Seasonal Influenza, High Dos e, Trivalent, PF, IM (Fluzone HD) 03/19/2020,03/26/2019 Seasonal Influenza, MDCK, Tr ivalent, PF, (Flucelvax) 05/02/2013 Seasonal Influenza, PF, 6 M & above, IM , (FluLaval or Fluzone) 04/02/2018,05/02/2017 Seasonal Influenza, Quadriva lent, No Preserve, IM 03/22/2016 03/22/2017 Seasonal Influenza, Trivalen t, (IIV3), PF, (Fluzone) 04/10/2024 Seasonal Influenza, Trivalen t, Adjuvanted, 65+ YRS, PF, (Fluad) 03/19/2020,03/26/2019 TD, Preservative Free 01/20/2020 TDAP, Age 7 and older, IM (Adacel) 03/31/2009 Zoster Vaccine Recombinant (Shingrix) 12/19/2019 ,08/22/2019 documented as of this encounter Social History Tobacco Use Types Packs/Day Years Used Date Smoking Tobacco: Never Smokeless Tobacco: Never Alcohol Use Standard Drinks/Week Comments Yes 0 (1 standard drink = 0.6 oz pure alcohol) glass of wine 1-2 times monthly; very rare beer 1-2 times yearly PHQ-2 Answer Date Recorded PHQ-2 Score 0 12/23/2018 Hunger Vital Sign Answer Date Recorded Worried About Running Out of Food in the Last Ye ar Never true 08/20/2019 Ran Out of Food in the Last Year Never true 08/20/2019 Sex and Gender Information Value Date Recorded Sex Assigned at Female 12/23/2018 1:00 PM EDT Gender Identity Female 12/23/2018 1:00 PM EDT Sexual Orientation Straight 12/23/2018 1: 00 PM EDT Job Start Date Occupation Industry Not on file Not on file Not on file documented as of this encounter Miscellaneous Notes * Telephone Encounter - Radha Nathan MED ASSIST - 04/28/2024 2:57 PM EST Patient aware and agreeable. * Telephone Encounter - Radha Nathan, MED ASSIST - 04/28/2024 2:57 PM EST ----- Message from Amada Vasquez MD sent at 04/26/2024 5:04 PM EDT ----- Tsh better but still low, which means current thyroid medicine dose high, need to lower levothyroxine dose to 150 mcg and recheck TSH in 6 weeks. Will also check hba1c in 6 weeks along with tsh as will be due Lab ordered and med sent documented in this encounter Plan of Treatment Upcoming Encounters Date Type Department Care Team (Late st Contact Info) Description 06/10/2024 2:15 PM EST Office Visit Otolaryngology/Head & Neck/Facial Plastic Surgery [address] [place] [address] Dev Johnson MD [address] [place] [address] 06/12/2024 9:00 AM EST Office Visit General Internal Medicine [facility] [address] [facility] [place] [address] Amada Vasquez MD [address] [facility] [place] [address] 10/09/2024 10:15 AM EDT Office Visit Ophthalmology, [facility] [address] [place] [address] Obed Bone DO [address] [place] [address] Health Maintenance Due Date Last Done Comments Adult Wellness Visit 2011 Nephrology Referral 08/16/2013 08/16/2012 Diabetic Eye Exam 11/23/2021 11/23/2020, , 09/07/2020, Additional history exists COVID-19 Vaccine ( season) 2024 04/06/2023, 04/06/2023, 12/16/2021, Additional history exists Depression Screening 06/28/2024 06/28/2023 HbA1c 07/03/2024 01/01/2024, 06/25, 12/29/2022, Additional history exists PTH 07/10/2024 07/10/2023, 1207/2019, 11/11/2019, Additional history exists Phosphate 07/10/2024 07/10/2023, 07/2020, 10/12/2020, Additional history exists Diabetic Foot Exam 11/27/2024 11/28/2023, 1 08/22/2019, 08/20/2019, Additional history exists Hgb 04/10/2025 04/10/2024, 02/2024, 07/10/2023, Additional history exists TSH 04/10/2025 04/10/2024, 01/23, 01/01/2024, Additional history exists Mammogram 02/04/2026 02/05/2024, 02/23, 07/29/2015, Additional history exists Hepatitis B Vaccine Completed 09/14/2015, 04/22/2015, 03/16/2015 Pneumococcal Vaccine: 65+ Years Completed 02/13/2018, 11/20/2013 Colonoscopy Discontinued 04/22/2018, 06/23/2014 Zoster Vaccines Completed 12/19/2019, 08/22/2019 Albumin/Creatinine Ratio Discontinued 024, 05/26/2020, 03/23/2015, Additional history exists Influenza Vaccine (FLU shot) Completed 04/10/2024, 04/06/2023, 04/06/2023, Additional history exists HPV (Gardasil) Vaccine Aged Out No lo nger eligible based on patient's age to complete this topic MENINGOCOCCAL (MENACTRA/MENVEO) Aged Out No longer eligible based on patient's age to complete this topic documented as of this encounter Medical Devices Not on filedocumented as of this encounter Care Teams Photographic Double Relationship Specialty Start Date End Date Amada Vasquez MD [address] [place] [address] PCP - General Internal Medicine 01/14/24 documented as of this encounter
--- OUTSIDE RECORDS SUMMARY | 2024-05-07 20:33 | External Medical Summary | Summary of Care ---
Author Name Unknown Organization [facility] Address [address] [place] [address] Phone [phone] Care Team Providers Care Transfer Clerk Name Role Phone Amada Vasquez MD Primary Care Provider [phone] Reason for Visit * Reason Onset Date Comments Advice 04/30/2024 Encounter Details Date Type Department Care Team (Late st Contact Info) Description 04/30/2024 Telephone General Internal Medicine [facility] [address] [place] [address] Amaad Vasquez MD [address] [place] [address] Advice Allergies Active Allergy Reactions Criticality Noted Date Comments Adhesive Tape 05/20/2019 Amlodipine 08/20/2019 Arformoterol Other (Please comment) 11/02/2015 Flare of asthma Budesonide Itching 03/04/2014 Pt reports itching in throat and ears after use. Calamine 11/16/1999 Chondroitin 05/27/2010 Affect eyes Codeine Other (Please comment) 01/28/2019 nightmares Ipratropium [place] Hfa Cough 11/02/2015 Penicillins 11/16/1999 Statins Edema Other 05/08/2018 Severe swelling throughout body Sulfa Antibiotics 11/16/1999 Thimerosal (Thiomersal) Hives 09/14/2010 Neomycin-Bacitracin Zn-Polymyx Rash 09/14/2010 documented as of this encounter (statuses as of 05/01/2024) Medications Medication Sig Dispensed Refills Start Date End Date Status GELATIN 600 MG PO CAPS one by mouth daily Active ONE-A-DAY 50 PLUS PO TABS 08/23/2012 Active BLOOD PRESSURE MONITOR/L CUFF MISCIndications:Prote inuria,HTN, goal below 130/80 for home bp log 1 Device 0 09/30/2012 Active ASPIRIN 81 MG PO TABSIndications:Kidne y disease, chronic, stage IV (GFR 15-29 ml/min) ([facility]),Nephrotic syndrome 1 TABLET DAILY 30 Tab 5 [...] with diabetes mellitus due to underlying condition ([facility]),Type 2 diabetes mellitus with diabetic nephropathy, with long-term current use of insulin ([facility]) TEST BLOOD SUGAR TWICE DAILY. Dx: E11.21 200 Strip 3 06/21/2020 Active OneTouch UltraSoft LancetsIndications:Ty pe 2 diabetes mellitus with diabetic nephropathy, with long-term current use of insulin ([facility]),Proliferative diabetic retinopathy of both eyes without macular edema associated with diabetes mellitus due to underlying condition ([facility]) Use to test blood sugar twice daily 200 Each 3 06/21/2020 Active BD Pen Needle Short U/F 31G X 8 MM (Insulin Pen Needle)Indications:Ty pe 2 diabetes mellitus with hemoglobin A1c goal of less than 7.0% (HCC) USE 4 TIMES DAILY DIRECTED 100 Each [...] bedtime. 1 Each 5 12/04/2023 Active FreeStyle Joes E 3 Ivins DeviceIndications:Typ e 2 diabetes mellitus with diabetic nephropathy, with long-term current use of insulin ([facility]),Proliferative diabetic retinopathy of both eyes without macular edema associated with diabetes mellitus due to underlying condition ([facility]) Use as directed. E11.9 1 Each 01/15/2024 Active FreeStyle Jose E 3 SensorIndications:Typ e 2 diabetes mellitus with diabetic nephropathy, with long-term current use of insulin ([facility]),Proliferative diabetic retinopathy of both eyes without macular edema associated with diabetes mellitus due to underlying condition ([facility]) Use as directed every 14 days. 6 [...] as of this encounter (statuses as of 05/01/2024) Active Problems Problem Noted Date Diagnosed Date [...] as of this encounter (statuses as of 05/01/2024) Resolved Problems Problem Noted Date Diagnosed Date [...] Severe aortic stenosis 12/16/201307/12 Diabetic retinopathy 03/05/2013 015 HTN, goal below 140/80 02/12/201209/30 Overview: [...] as of this encounter (statuses as of 05/01/2024) Immunizations Name Administration Dates Next Due COVID-19 mRNA, LNP-s, No Pre serve, 2-Dose Series (Tervela) 08/25/2020,08/04/2020 COVID-19, MRNA-LNP, PF, 30 M CG/0.3 mL, 12 YRS AND ABOVE, IM [facility] 04/06/2023 Hepatitis B, 20+ yrs 09/14/2015,04/22/2015,03/16 Pneumococcal [...] Miscellaneous Notes * Telephone Encounter - Radha Nathan, MED ASSIST - 05/01/2024 6:32 PM EST Patient aware and agreeable. She did purchase colace and senokot which worked well together and shewas able to have a bowel movement. So she is not as back up as she was. * Telephone Encounter - Amada Vasquez MD - 05/01/2024 5:03 PM EST I see she is on metamucil Check is on stool softer ? If not start colace 100 mg twice a day and if not enough add miralax as needed * Telephone Encounter - Ayleen Garcia CCMA - 05/01/2024 9:22 AM EST Please read message below and advise. Thank You * Telephone Encounter - Shara Harris OSA - 04/30/2024 9:53 AM EST Patient calling stating she is a dialysis patient, she is experiencing constipation which is possibly caused by the dialysis, she usually can take care of it, but at this time she is extremely constipated and would like to receive advise as to what she can do, please call patient and advise. documented in this encounter Plan of Treatment Upcoming Encounters Date Type Department Care Team (Late st Contact Info) Description 06/10/2024 2:15 PM EST Office Visit Otolaryngology/Head & Neck/Facial Plastic Surgery [address] [place] [address] Dev Johnson MD [address] [place] [address] 06/12/2024 9:00 AM EST Office Visit General Internal Medicine [employer] [address] [place] [address] Amada Vasquez MD 200 [facility] [place] [address] 10/09/2024 10:15 AM EDT Office Visit Ophthalmology, [facility] [address] [place] [address] Obed Bone DO [address] [place] [address] Health Maintenance Due Date Last Done Comments [...] 08/20/2019, Additional history exists Hgb 04/10/2025 04/10/2024, 07/0 02/2024, 07/10/2023, Additional history exists TSH 04/10/2025 [...] filedocumented as of this encounter Care Teams Transfer Clerk Relationship Specialty Start Date End Date Amada Vasquez MD [address] [place] [address] PCP - General Internal Medicine 01/14/24 documented as of this encounter
--- OUTSIDE RECORDS SUMMARY | 2024-05-07 20:34 | External Medical Summary | Summary of Care ---
Author Name Unknown Organization [facility] Address [address] [place] [address] Phone [phone] Care Team Providers Care Atmospheric Scientist Name Role Phone Amada Vasquez MD Primary Care Provider [phone] Reason for Visit * Reason Onset Date Comments Advice 04/10/2024 Encounter Details Date Type Department Care Team (Late st Contact Info) Description 04/10/2024 Telephone Ophthalmology, [facility] [address] [facility] [place] [address] Obed Bone, [address] [facility] [address] Advice Allergies Active Allergy Reactions Criticality Noted Date Comments Adhesive Tape 05/20/2019 Amlodipine 08/20/2019 Arformoterol Other (Please comment) 11/02/2015 Flare of asthma Budesonide Itching 03/04/2014 Pt reports itching in throat and ears after use. Calamine 11/16/1999 Chondroitin 05/27/2010 Affect eyes Codeine Other (Please comment) 01/28/2019 nightmares Ipratropium [place] [facility]fa Cough 11/02/2015 Penicillins 11/16/1999 Statins Edema Other 05/08/2018 Severe swelling throughout body Sulfa Antibiotics 11/16/1999 Thimerosal (Thiomersal) Hives 09/14/2010 Neomycin-Bacitracin Zn-Polymyx Rash 09/14/2010 documented as of this encounter (statuses as of 04/10/2024) Medications Medication Sig Dispensed Refills Start Date End Date Status GELATIN 600 MG PO CAPS one by mouth daily Active ONE-A-DAY 50 PLUS PO TABS 08/23/2012 Active BLOOD PRESSURE MONITOR/L CUFF MISCIndications:Prot einuria,HTN, goal below 130/80 for home bp log 1 Device 0 09/30/2012 Active ASPIRIN 81 MG PO TABSIndications:Kidn ey disease, chronic, stage IV (GFR 15-29 ml/min) ([facility]),Nephrotic syndrome 1 TABLET DAILY 30 Tab 5 02/04/2014 Active loratadine (CLARITIN) 10 MG TabletIndications:Tr acheitis, chronic, with laryngitis,Asthma with severity to be determined,Chronic frontal sinusitis 1/2 tab daily 30 Tab 5 11/03/2015 Active famotidine (PEPCID) 20 MG TabletIndications:Ga stroesophageal reflux disease, esophagitis presence not specified Take [...] zoster vac recomb adjuvanted (SHINGRIX) 50 MCG/0.5ML injectionIndications :Need for shingles vaccine Inject 0.5 mL into [...] OneTouch Ultra Blue In Vitro Strip (Glucose Blood)Indications:Pr oliferative diabetic retinopathy of both eyes without macular edema associated with diabetes mellitus due to underlying condition ([facility]),Type 2 diabetes mellitus with diabetic nephropathy, with long-term current use of insulin ([facility]) TEST BLOOD SUGAR TWICE DAILY. Dx: E11.21 200 Strip 3 06/21/2020 Active OneTouch UltraSoft LancetsIndications:T ype 2 diabetes mellitus with diabetic nephropathy, with long-term current use of insulin ([facility]),Proliferative diabetic retinopathy of both eyes without macular edema associated with diabetes mellitus due to underlying condition ([facility]) Use to test blood sugar twice daily 200 Each 3 06/21/2020 Active BD Pen Needle Short U/F 31G X 8 MM (Insulin Pen Needle)Indications:T ype 2 diabetes mellitus with hemoglobin A1c goal of less than 7.0% (HCC) USE 4 TIMES DAILY DIRECTED 100 Each 5 11/13/2020 Active Mucinex 600 MG Oral Tablet Extended Release 12 Hour (guaiFENesin ER)Indications:Chron ic frontal sinusitis Take 1 Tablet by mouth [...] HFA 108 (90 Base) MCG/ACT Inhalation Aerosol SolutionIndications: Mild intermittent asthma with exacerbation Inhale 1 Puff by mouth every 4 hours as needed for Wheezing. 18 g 5 12/04/2023 Active Fluticasone-Salmeter ol 250-50 MCG/ACT Inhalation Aerosol Powder Breath Activated (Advair Diskus)Indications:M ild intermittent asthma with exacerbation Inhale 1 Puff by mouth in the morning and 1 Puff before bedtime. 1 Each 5 12/04/2023 Active FreeStyle Jose E 3 [place] DeviceIndications:Ty pe 2 diabetes mellitus with diabetic nephropathy, with long-term current use of insulin ([facility]),Proliferative diabetic retinopathy of both eyes without macular edema associated with diabetes mellitus due to underlying condition ([facility]) Use as directed. E11.9 1 Each 01/15/2024 Active FreeStyle Jose E 3 SensorIndications:Ty pe 2 diabetes mellitus with diabetic nephropathy, with long-term current use of insulin ([facility]),Proliferative diabetic retinopathy of both eyes without macular edema associated with diabetes mellitus due to underlying condition ([facility]) Use as directed every 14 days. 6 Each 3 01/15/2024 Active Levothyroxine Sodium 175 MCG Oral Tablet (Levoxyl) Take 1 Tablet by mouth in the morning. on an empty stomach.. 30 Tablet 5 02/08/2024 Active Insulin Glargine 100 UNIT/ML Subcutaneous Solution Pen-injector (Lantus)Indications: Type 2 diabetes mellitus with hemoglobin A1c goal [...] 03/29/2024 Active Simbrinza 1-0.2 % Ophthalmic Suspension (Brinzolamide-[place] idine)Indications:Di abetic macular edema (HCC) INSTILL ONE DROP INTO RIGHT EYE TWICE DAILY 10 mL 12 04/10/2024 Active documented as of this encounter (statuses as of 04/10/2024) Active Problems Problem Noted Date Diagnosed Date [...] as of this encounter (statuses as of 04/10/2024) Resolved Problems Problem Noted Date Diagnosed Date [...] as of this encounter (statuses as of 04/10/2024) Immunizations Name Administration Dates Next Due COVID-19 mRNA, LNP-s, No Pre serve, 2-Dose Series ([employer] 08/25/2020,08/04/2020 COVID-19, MRNA-LNP, 23-24, P F, 30 MCG/0.3 mL, 12 YRS AND ABOVE, IM ([facility]) 04/06/2023 Hepatitis B, 20+ yrs 09/14/2015,04/22/2015,03/16 Pneumococcal Conjugate Vacc, 13 Valent (Prevnar) 02/13/2018 Pneumococcal Conjugate Vacci ne, 7 Valent 04/25/2007 Pneumococcal Polysaccharide PPV23 (Pneumovax) 11/20/2013 Seasonal Influenza Vac., MDV , IM, 0.5 mL (Fluzone) 04/06/2023,03/16/2015,04/29/2014,11/12/2011,03/22/2011,03/18/2010,03/31/20 09,04/25/2007,05/16/2006 Seasonal Influenza Virus Vac cine, Unspecified [...] encounter Miscellaneous Notes * Telephone Encounter - Anahi Roland MED ASSIST - 04/10/2024 12:43 PM EDT Called and spoke with pharmacist Marline, advised her of message from Dr Bone, states under standing and will refill * Telephone Encounter - Kim Oliveros OSA - 04/10/2024 11:38 AM EDT Call from Marline at [facility] patient was prescribed Simbrinza but has a sulfur allergy. Calling to double check that it is ok to fill this prescription documented in this encounter Plan of Treatment Upcoming Encounters Date Type Department Care Team (Late st Contact Info) Description 04/15/2024 2:00 PM EDT Office Visit Otolaryngology [facility] [address] [place] [address] Isabel Mora MD [address] [place] [address] 06/12/2024 9:00 AM EST Office Visit General Internal Medicine [facility] [address] [facility] [place] [address] Amada Vasquez MD [address] [facility] [place] [address] 10/09/2024 10:15 AM EDT Office Visit Ophthalmology, [facility] [address] [place] [address] Obed Bone DO [address] [place] [address] Health Maintenance Due Date Last Done Comments [...] 11/28/2023, 1 08/22/2019, 08/20/2019, Additional history exists TSH 02/04/2025 02/05/2024, 0 02/2024, 07/10/2023, Additional history exists Hgb 04/10/2025 04/10/2024, 0 02/2024, 07/10/2023, Additional history exists Mammogram 02/04/2026 02/05/2024, 02/23, [...] filedocumented as of this encounter Care Teams Atmospheric Scientist Relationship Specialty Start Date End Date Amada Vasquez MD [address] [facility] [place], [place] [address] PCP - General Internal Medicine 01/14/24 documented as of this encounter
--- OUTSIDE RECORDS SUMMARY | 2024-05-07 20:34 | External Medical Summary | Summary of Care ---
Author Name Unknown Organization [facility] Address [address] [place] [address] Phone [phone] Care Team Providers Care Client Services Coordinator Name Role Phone Amada Vasquez MD Primary Care Provider [phone] Reason for Visit * Reason Onset Date Comments Test Results 04/23/2024 Encounter Details Date Type Department Care Team (Late st Contact Info) Description 04/23/2024 Telephone [facility] Otolaryngology [address] [facility] [place] [id number] Isabel Mora MD [address] [facility] [place] [address] Test Results Allergies Active Allergy Reactions Criticality Noted Date Comments Adhesive Tape 05/20/2019 Amlodipine 08/20/2019 Arformoterol Other (Please comment) 11/02/2015 Flare of asthma Budesonide Itching 03/04/2014 Pt reports itching in throat and ears after use. Calamine 11/16/1999 Chondroitin 05/27/2010 Affect eyes Codeine Other (Please comment) 01/28/2019 nightmares Ipratropium [place] Hfa Cough 11/02/2015 Penicillins 11/16/1999 Statins Edema Other 05/08/2018 Severe swelling throughout body Sulfa Antibiotics 11/16/1999 Thimerosal (Thiomersal) Hives 09/14/2010 Neomycin-Bacitracin Zn-Polymyx Rash 09/14/2010 documented as of this encounter (statuses as of 04/23/2024) Medications Medication Sig Dispensed Refills Start Date End Date Status GELATIN 600 MG PO CAPS one by mouth daily Active ONE-A-DAY 50 PLUS PO TABS 08/23/2012 Active BLOOD PRESSURE MONITOR/L CUFF MISCIndications:Prot einuria,HTN, goal below 130/80 for home bp log 1 Device 0 09/30/2012 Active ASPIRIN 81 MG PO TABSIndications:Kidn ey disease, chronic, stage IV (GFR 15-29 ml/min) ([facility]),Nephrotic syndrome 1 TABLET DAILY 30 Tab 5 [...] with diabetes mellitus due to underlying condition ([facility]),Type 2 diabetes mellitus with diabetic nephropathy, with long-term current use of insulin ([facility]) TEST BLOOD SUGAR TWICE DAILY. Dx: E11.21 200 Strip 3 06/21/2020 Active OneTouch UltraSoft LancetsIndications:T ype 2 diabetes mellitus with diabetic nephropathy, with long-term current use of insulin ([facility]),Proliferative diabetic retinopathy of both eyes without macular edema associated with diabetes mellitus due to underlying condition ([facility]) Use to test blood sugar twice daily [...] 5 12/04/2023 Active FreeStyle Jose E 3 [place] DeviceIndications:Ty pe 2 diabetes mellitus with diabetic nephropathy, with long-term current use of insulin ([facility]),Proliferative diabetic retinopathy of 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 E11.9 1 Each 01/15/2024 Active FreeStyle Jose E 3 SensorIndications:Ty pe 2 diabetes mellitus with diabetic nephropathy, with long-term current use of insulin ([facility]),Proliferative diabetic retinopathy of both eyes without macular edema associated with diabetes mellitus due to underlying condition ([facility]) Use as directed every 14 days. 6 [...] as of this encounter (statuses as of 04/23/2024) Active Problems Problem Noted Date Diagnosed Date [...] as of this encounter (statuses as of 04/23/2024) Resolved Problems Problem Noted Date Diagnosed Date [...] as of this encounter (statuses as of 04/23/2024) Immunizations Name Administration Dates Next Due COVID-19 mRNA, LNP-s, No Pre serve, 2-Dose Series ([employer]) 08/25/2020,08/04/2020 COVID-19, MRNA-LNP, 23-24, P F, 30 MCG/0.3 mL, 12 YRS AND ABOVE, IM ([facility]) 04/06/2023 Hepatitis B, 20+ yrs 09/14/2015,04/22/2015,03/16 Pneumococcal [...] encounter Miscellaneous Notes * Telephone Encounter - Zulay Albright LPN - 04/23/2024 10:36 AM EDT Patient verbalizes understanding of all instructions and explanations given. 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 I see she has an appointment with Dr. Johnson in a month or so. documented in this encounter Plan of Treatment Upcoming Encounters Date Type Department Care Team (Late st Contact Info) Description 06/10/2024 2:15 PM EST Office Visit Otolaryngology/Head & Neck/Facial Plastic Surgery [address] [place] [facility] [place] [address] Dev Johnson MD [address] [place] [address] 06/12/2024 9:00 AM EST Office Visit General Internal Medicine [facility] [address] [facility] [place] [address] Amada Vasquez MD [address] [facility] [place] [address] 10/09/2024 10:15 AM EDT Office Visit Ophthalmology, [facility] [address] [place] [address] Obed Bone DO [address] [place] [address] Health Maintenance Due Date Last Done Comments Adult Wellness Visit 2011 Nephrology Referral 08/16/2013 08/16/2012 Diabetic Eye Exam 11/23/2021 11/23/2020, , 09/07/2020, Additional history exists COVID-19 Vaccine ( season) 2024 04/06/2023, 04/06/2023, 12/16/2021, Additional history exists Depression Screening 06/28/2024 06/28/2023 HbA1c 07/03/2024 01/01/2024, 06/25, 12/29/2022, Additional history exists PTH 07/10/2024 07/10/2023, 07/2019, 11/11/2019, Additional history exists Phosphate 07/10/2024 07/10/2023, [...] filedocumented as of this encounter Care Teams Client Services Coordinator Relationship Specialty Start Date End Date Amada Vasquez MD [address] [place], [place] [address] PCP - General Internal Medicine 01/14/24 documented as of this encounter
--- OUTSIDE RECORDS SUMMARY | 2024-05-07 20:34 | External Medical Summary | Summary of Care ---
Author Name Unknown Organization [facility] Address [address] [place] [address] Phone [phone] Care Team Providers Care Piece Goods Clerk Name Role Phone Amada Vasquez MD Primary Care Provider [phone] Reason for Visit * Reason Onset Date Comments Immunizations Medication Administration 04/10/2024 Flu an d/or Pneumo Inj Encounter Details Date Type Department Care Team (Late st Contact Info) Description 04/10/2024 9:40 AM EDT Immunization Ancillary [facility] [address] [place] [address] [facility] [address] [place] [address] Need for prophylactic vaccination and inoculation against influenza* Allergies Active Allergy Reactions Criticality Noted Date Comments Adhesive Tape 05/20/2019 Amlodipine 08/20/2019 Arformoterol Other (Please comment) 11/02/2015 Flare of asthma Budesonide Itching 03/04/2014 Pt reports itching in throat and ears after use. Calamine 11/16/1999 Chondroitin 05/27/2010 Affect eyes Codeine Other (Please comment) 01/28/2019 nightmares Ipratropium [place] Hfa Cough 11/02/2015 Penicillins 11/16/1999 Statins Edema [...] disease, chronic, stage IV (GFR 15-29 ml/min) ([facility]),Nephrotic syndrome 1 TABLET DAILY 30 [...] with diabetes mellitus due to underlying condition ([facility]),Type 2 diabetes mellitus with diabetic nephropathy, with long-term current use of insulin ([facility]) TEST BLOOD SUGAR TWICE DAILY. Dx: E11.21 200 Strip 3 06/21/2020 Active OneTouch UltraSoft LancetsIndications:T ype 2 diabetes mellitus with diabetic nephropathy, with long-term current use of insulin ([facility]),Proliferative diabetic retinopathy of both eyes without macular edema associated with diabetes mellitus due to underlying condition ([facility]) Use to test blood sugar twice daily 200 Each 3 06/21/2020 Active BD Pen Needle Short U/F 31G X 8 MM (Insulin Pen Needle)Indications:T ype 2 diabetes mellitus with hemoglobin A1c goal of less than 7.0% ([facility]) USE 4 TIMES DAILY DIRECTED [...] 5 12/04/2023 Active FreeStyle Jose E 3 [place] DeviceIndications:Ty pe 2 diabetes mellitus with diabetic nephropathy, with long-term current use of insulin ([facility]),Proliferative diabetic retinopathy of both eyes without macular edema associated with diabetes mellitus due to underlying condition ([facility]) Use as directed. E11.9 1 Each 01/15/2024 Active FreeStyle Jose E 3 SensorIndications:Ty pe 2 diabetes mellitus with diabetic nephropathy, with long-term current use of insulin ([facility]),Proliferative diabetic retinopathy of both eyes without macular edema associated with diabetes mellitus due to underlying condition ([facility]) Use as directed every 14 [...] nephropathy, with long-term current use of insulin ([facility]) Inject 9 Units under the skin daily. [...] mRNA, LNP-s, No Pre serve, 2-Dose Series ([email or web address]) 08/25/2020,08/04/2020 COVID-19, MRNA-LNP, 23-24, P F, 30 MCG/0.3 mL, 12 YRS AND ABOVE, IM (PFIZER-[facility]) [...] on file documented as of this encounter Patient Instructions * Patient Instructions* Roxana Avila LPN - 04/10/2024 10:10 AM EDT ~~PATIENT INSTRUCTIONS FOR FLU SHOT~~ Possible side effects of influenza vaccine, (flu shot), are usually mild and include: 1. Soreness or redness at injection site 2. Low grade fever 3. Body aches You may use Tylenol/Acetaminophen as needed for these symptoms. LET YOUR DOCTOR KNOW IMMEDIATELY IF YOU HAVE DIFFICULTY BREATHING OR SWALLOWING, EXPERIENCE ITCHINGOF FEET OR HANDS, HAVE SWELLING OF EYES, FACE OR INSIDE OF NOSE. documented in this encounter Progress Notes * Roxana Avila LPN - 04/10/2024 10:10 AM EDT PRE - ADMINISTRATION DOCUMENTATION Are you experiencing any cold symptoms or fever? No Have you had Guillain-Waverly Syndrome (an illness that causes paralysis) within the last 6 weeks? No Have you had the flu shot in the past? YES Have you ever had a reaction to the flu shot? No Roxana Avila LPN, 04/10/2024 10:10 AM Immunization Administration Documentation Time Out Procedure Performed: Yes Patient Identified (Ask Name/Date of ): Yes Does the patient have a fever greater than 101 degrees today? No Patient allergic to latex? No VFC Stock: No Immunization(s) verified: Yes, Immunization Name: Flu, VIS Sheet(s) given: Yes Verified Side and Site: Yes Verified Shot(s) with Parent(s)/Patient: Yes P requested that she not be given the high dose. documented in this encounter Plan of Treatment Upcoming Encounters Date Type Department Care Team (Late st Contact Info) Description 04/15/2024 2:00 PM EDT Office Visit Otolaryngology [facility] [address] [place] [address] Isabel Mora MD [address] [place] [address] 06/12/2024 9:00 AM EST Office Visit [facility] [address] [facility] [address] Amada Vasquez MD [address] [place] [address] 10/09/2024 10:15 AM EDT Office Visit Ophthalmology, [facility] [address] [place] [address] Obed Bone DO [address] [place] [address] Health Maintenance Due Date Last Done Comments Adult Wellness Visit 2011 Nephrology Referral 08/16/2013 08/16/2012 Diabetic Eye Exam 11/23/2021 11/23/2020, , 09/07/2020, Additional history exists COVID-19 Vaccine ( season) 2024 04/06/2023, 04/06/2023, 12/16/2021, Additional history exists Depression Screening 06/28/2024 06/28/2023 HbA1c 07/03/2024 01/01/2024, 06/25, 12/29/2022, Additional history exists PTH 07/10/2024 07/10/2023, 1207/2019, 11/11/2019, Additional history exists Phosphate 07/10/2024 07/10/2023, 0607/2020, 10/12/2020, Additional history exists Diabetic Foot Exam 11/27/2024 11/28/2023, 1 08/22/2019, 08/20/2019, Additional history exists Hgb 12/31/2024 04/10/2024, 07/0 02/2024, 07/10/2023, Additional history exists TSH 02/04/2025 02/05/2024, 07/0 02/2024, 07/10/2023, Additional history exists Mammogram 02/04/2026 [...] Not on filedocumented as of this encounter Visit Diagnoses Diagnosis Need for prophylactic vaccination and inoculation against influenza- Primary documented in this encounter Care Teams Piece Goods Clerk Relationship Specialty Start Date End Date Amada Vasquez MD [address] [place] [address] PCP - General Internal Medicine 01/14/24 documented as of this encounter
--- OUTSIDE RECORDS SUMMARY | 2024-05-07 20:34 | External Medical Summary | Summary of Care ---
Author Name Unknown Organization [facility] Address [address] [place] [address] Phone [phone] Care Team Providers Care [place] [place] Name Role Phone Amada Vasquez MD Primary Care Provider [phone] Reason for Referral * Precert (Within 10 days (routine)) - Pending Review Specialty Diagnoses / Procedures Referred By Shankar omreno Referred To Contact Radiology Diagnoses Tracheal stenosis Procedures CT NECK WO CONTRAST Isabel Mora MD [address] [place] [address] Referral ID Status Reason Start Date Expiration Date V isits Requested Visits Authorized [id number] Pending Review 04/22/2024 999 [id number] * Evaluate & Treat - Unlimited Visits (Within 10 days (routine)) - Authorized Specialty Diagnoses / Procedures Referred By Shankar moreno Referred To Contact Otolaryngology Diagnoses Tracheal stenosis Isabel Mora MD [address] [place] [address] Dev Johnson MD [address] [place] [address] Referral ID Status Reason Start Date Expiration Date Visits Requested Visits Authorized [id number] Authorized Specialty Services Required 4 [id number] Question Answer Referral Priority Within 10 days (routine) Where should this appointment be scheduled? [facility] Reason for Referral Head/Neck/Cancer Conditions Specific Condition: Head/Neck Comments Hx of SGS with dilation many years ago, symptoms returning, CT without contrast ordered 2/2 patient on dialysis Reason for Visit * Reason Comments NEW PATIENT * Evaluate & Treat - Unlimited Visits (Within 30 days (routine)) - Authorized Specialty Diagnoses / Procedures Referred By Shankar t Referred To Contact Otolaryngology Diagnoses Tracheal stenosis Amada Vasquez MD [address] [facility] [place] [place] [address] Referral ID Status Reason Start Date Expiration Date Visits Requested Visits Authorized [id number] Authorized Specialty Services Required 03/14/2024 999 [id number] Encounter Details Date Type Department Care Team (Late st Contact Info) Description 04/15/2024 2:00 PM EDT Office Visit Otolaryngology [facility] [address] [place] [address] Isabel Mora MD [address] [facility] [place] [address] Tracheal stenosis* Allergies Active Allergy Reactions Criticality Noted Date Comments Adhesive Tape 05/20/2019 Amlodipine 08/20/2019 Arformoterol Other (Please comment) 11/02/2015 Flare of asthma Budesonide Itching 03/04/2014 Pt reports itching in throat and ears after use. Calamine 11/16/1999 Chondroitin 05/27/2010 Affect eyes Codeine Other (Please comment) 01/28/2019 nightmares Ipratropium [facility] Cough 11/02/2015 Penicillins 11/16/1999 Statins Edema Other 05/08/2018 Severe swelling throughout body Sulfa Antibiotics 11/16/1999 Thimerosal (Thiomersal) Hives 09/14/2010 Neomycin-Bacitracin Zn-Polymyx Rash 09/14/2010 documented as of this encounter (statuses as of 04/15/2024) Medications Medication Sig Dispensed Refills Start Date End Date Status GELATIN 600 MG PO CAPS one by mouth daily Active ONE-A-DAY 50 PLUS PO TABS 08/23/2012 Active BLOOD PRESSURE MONITOR/L CUFF MISCIndications:Prot einuria,HTN, goal below 130/80 for home bp log 1 Device 0 09/30/2012 Active ASPIRIN 81 MG PO TABSIndications:Kidn ey disease, chronic, stage IV (GFR 15-29 ml/min) ([facility]),Nephrotic syndrome 1 TABLET DAILY 30 Tab [...] with diabetes mellitus due to underlying condition ([facility]),Type 2 diabetes mellitus with diabetic nephropathy, with long-term current use of insulin ([facility]) TEST BLOOD SUGAR TWICE DAILY. Dx: E11.21 200 Strip 3 06/21/2020 Active OneTouch UltraSoft LancetsIndications:T ype 2 diabetes mellitus with diabetic nephropathy, with long-term current use of insulin ([facility]),Proliferative diabetic retinopathy of both eyes without macular edema associated with diabetes mellitus due to underlying condition ([facility]) Use to test blood sugar twice [...] 5 12/04/2023 Active FreeStyle Jose E 3 [place] DeviceIndications:Ty pe 2 diabetes mellitus with diabetic nephropathy, with long-term current use of insulin ([facility]),Proliferative diabetic retinopathy of both eyes without macular edema associated with diabetes mellitus due to underlying condition ([facility]) Use as directed. E11.9 1 Each 01/15/2024 Active FreeStyle Jose E 3 SensorIndications:Ty pe 2 diabetes mellitus with diabetic nephropathy, with long-term current use of insulin ([facility]),Proliferative diabetic retinopathy of both eyes without macular edema associated with diabetes mellitus due to underlying condition ([facility]) Use as directed every 14 days. [...] as of this encounter (statuses as of 04/15/2024) Active Problems Problem Noted Date Diagnosed Date [...] as of this encounter (statuses as of 04/15/2024) Resolved Problems Problem Noted Date Diagnosed Date [...] as of this encounter (statuses as of 04/15/2024) Immunizations Name Administration Dates Next Due COVID-19 mRNA, LNP-s, No Pre serve, 2-Dose Series (Project Dance) 08/25/2020,08/04/2020 COVID-19, MRNA-LNP, 23-24, P F, 30 MCG/0.3 mL, 12 YRS AND ABOVE, IM (PFIZER-Comirnaty) 04/06/2023 Hepatitis B, 20+ yrs 09/14/2015,04/22/2015,03/16 Pneumococcal Conjugate Vacc, 13 Valent (Prevnar) 02/13/2018 Pneumococcal Conjugate Vacci ne, 7 Valent 04/25/2007 Pneumococcal Polysaccharide PPV23 (Pneumovax) 11/20/2013 Seasonal Influenza Vac., MDV , IM, 0.5 mL (Fluzone) 04/06/2023,03/16/2015,04/29/2014,1112/2011,03/22/2011,03/18/2010,03/31/20 09,04/25/2007,05/16/2006 Seasonal Influenza Virus Vac cine, Unspecified [...] on file documented as of this encounter Last Filed Vital Signs Vital Sign Reading Time Taken Comments Blood Pressure - - Pulse - - Temperature 36.4 C (97.6 F) 04/15/2024 1:58 PM ED T Respiratory Rate - - Oxygen Saturation - - Inhaled Oxygen Concentration - - Weight 76.2 kg (168 lb) 04/15/2024 1:58 PM EDT Height 157.5 cm (5' 2") 04/15/2024 1:58 PM EDT Body Mass Index 30.73 04/15/2024 1:58 PM EDT documented in this encounter Progress Notes * Isabel Mora MD - 04/15/2024 2:00 PM EDT Otolaryngology Head and Neck Surgery 04/15/2024 Patient with history of subglottic stenosis. She is s/p dilation by Dr. Vega about 6 years ago. Nursing Notes: Zulay Albright, CARPENTER APPRENTICE 04/15/24 1359 Signed Patient presents today for subglottic stenois. Was seen [place] [address] Orlando. She notes she is having post nasal drip. She is also having issues swallowing her pills. The pills are to large and getting stuck. 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) Statins contraindicated Diabetic ulcer of left lower leg associated with type 2 diabetes mellitus, limited to breakdown of skin (HCC) Mild intermittent asthma with exacerbation Type 2 diabetes mellitus with hemoglobin A1c goal of less than 8.0% (HCC) History of transcatheter aortic valve replacement (TAVR) Anemia of chronic renal failure, stage 5 (HCC) Type 2 diabetes mellitus with stage 5 chronic kidney disease not on chronic dialysis, with long-term current use of insulin (HCC) Chronic kidney disease, stage 5 (HCC) Past Medical History: Diagnosis Date Aortic valve defect Background diabetic retinopathy(362.01) OD CHF (congestive heart failure) ([facility]) Diabetic macular edema (HCC) 08/04/2015 Diabetic macular edema(362.07) 08/20/2013 OS-started Lucentis 0.3mg injection, Dr. Bone DM type 2, not at goal (HCC) dysplastic nevi Other Heart attack (HCC) Herpes zoster HTN, goal below 140/90 Ocular hypertension Other specified acquired hypothyroidism Statins contraindicated Type 2 diabetes mellitus with proliferative diabetic retinopathy with macular edema, bilateral (HCC) Vitreous degeneration OS Past Surgical History: Procedure Laterality Date ANESTH, KNEE VESSEL FISTULA SURGERY AV ACCESS, DIRECT ANASTOMOSIS Left 10/21/2014 radiocephalic fistula - Dr. Woodward BRONCHOSCOPY, DIAGNOSTIC N/A 02/14/2016 BRONCHOSCOPY DIAGNOSTIC WITH OR WITHOUT WASHING performed by Richar Vega MD [place] [facility] [place]ONCHOSCOPY, DIAGNOSTIC N/A 04/11/2017 BRONCHOSCOPY DIAGNOSTIC WITH OR WITHOUT WASHING performed by Richar Vega MD at [place] [facility] COLONOSCOPY, DIAGNOSTIC (RECTUM) 04/22/2018 colon polyp, diverticulosis, fair prep, repeat 3 yrs/[facility] [place] DIABETIC EYE EXAM 03/16/2010 right eye has diabetic neuropathy and cataract. INCISION OF EYE 03/24/2013 Left eye INJECTION OF EYE DRUG 10/19/2010 #1 Avastin OS; Dr. Bone INJECTION OF EYE DRUG 11/16/2010 #2 Avastin OS; Dr. Bone INJECTION OF EYE DRUG 03/14/2011 #3 Avastin OS; Dr. Bone INJECTION OF EYE DRUG 03/28/2011 #1 AVASTIN OD, DR. BONE INJECTION OF EYE DRUG 04/26/2011 #2 AVASTIN OD, DR. BONE INJECTION OF EYE DRUG 05/15/2011 #4 Avastin OS, Dr. Bone INJECTION OF EYE DRUG 05/31/2011 #3 Avastin OD, Dr. Bone INJECTION OF EYE DRUG 06/28/2011 #4 Avastin OD, Dr. Bone INJECTION OF EYE DRUG 07/12/2011 #5 Avastin OS, Dr. Bone INJECTION OF EYE DRUG 08/09/2011 #5 Avastin OD, Dr. Bone INJECTION OF EYE DRUG 08/22/2011 #6 Avastin OS, INJECTION OF EYE DRUG 09/12/2011 #6 Avastin OD, Dr. Bone INJECTION OF EYE DRUG 10/11/2011 #1 KENALOG OS; DR BONE INJECTION OF EYE DRUG 11/07/2011 #1 KENALOG OD; DR BONE INJECTION OF EYE DRUG 12/19/2011 #2 KENALOG OD; INJECTION OF EYE DRUG 01/24/2012 #3 KENALOG OD; INJECTION OF EYE DRUG 03/21/2012 #2 Kenalog OS; Dr. Bone INJECTION OF EYE DRUG 05/21/2012 #3 Kenalog OS; Dr. Bone INJECTION OF EYE DRUG 05/28/2012 #4 KENALOG OD, Dr. Bone INJECTION OF EYE DRUG 09/17/2012 #4 Kenalog OS, INJECTION OF EYE DRUG 11/12/2012 #5 Kenalog OD, Dr. Bone INJECTION OF EYE DRUG 02/04/2013 #5 Kenalog OS; Dr. Bone INJECTION OF EYE DRUG 05/13/2013 #7 Avastin OD, [facility]#[id number] INJECTION OF EYE DRUG 08/20/2013 #1 Lucentis 0.3mg OS, Dr. Bone ([facility]: [id number]) INJECTION OF EYE DRUG 09/17/2012 #1 Lucentis 0.3mg OD, Dr. Bone INJECTION OF EYE DRUG 10/01/2013 #2 Lucentis 0.3mg OS [facility]#[id number] INJECTION OF EYE DRUG 10/17/2013 #2 Lucentis 0.3mg OD, INJECTION OF EYE DRUG 10/29/2013 #3 Lucentis 0.3mg OS, INJECTION OF EYE DRUG 11/11/2013 #3 Lucentis 0.3mg OD, INJECTION OF EYE DRUG 11/25/2013 #4 Lucentis 0.3mg OS, Dr. Bone INJECTION OF EYE DRUG 12/03/2013 #4 Lucentis 0.3mg OD, Dr.Cessna SMITH INJECTION OF EYE DRUG 12/23/2013 #5 Lucentis 0.3mg OS, Dr Bone, [place]ann[place] INJECTION OF EYE DRUG 01/07/2014 #5 Lucentis 0.3mg OD, ([facility]: [phone])WALGREMMANUEL INJECTION OF EYE DRUG 01/20/2014 #6 Lucentis 0.3mg OS , Dr Bone ,[place] INJECTION OF EYE DRUG 02/10/2014 #6 Lucentis 0.3mg OD, Dr Bone ([facility] INJECTION OF EYE DRUG 03/03/2014 #7 Lucentis 0.3mg OS, Dr Bone , ([facility]) INJECTION OF EYE DRUG 03/24/2014 #7 Lucentis 0.3mg OD, Dr[facility] Bone ([facility]) INJECTION OF EYE DRUG 04/07/2014 #8 Lucentis 0.3mg OS, Dr.Cessna Smith INJECTION OF EYE DRUG 05/05/2014 #8 Lucentis 0.3mg OD, INJECTION OF EYE DRUG 05/19/2014 #9 Lucentis 0.3mg OS, Dr. Bone ([facility]) INJECTION OF EYE DRUG Right 06/03/2014 #9 Lucentis 0.3mg OD; [facility] INJECTION OF EYE DRUG Left 06/29/2014 #10 Lucentis 0.3mg OS; Dr Bone INJECTION OF EYE DRUG Right 07/14/2014 # 10 Lucentis 0.3mg OD; Dr. Bone ([facility]) INJECTION OF EYE DRUG Left 07/28/2014 # 11 Lucentis 0.3mg OS, INJECTION OF EYE DRUG Right 08/18/2014 #11 Lucentis 0.3mg OD; Dr. Bone INJECTION OF EYE DRUG Left 09/08/2014 # 12 LUCENTIS 0.3mg OS, Dr. Bone INJECTION OF EYE DRUG Right 09/29/2014 # 1 Eylea OD; Dr. Bone INJECTION OF EYE DRUG Left 10/20/2014 # 1 Eylea OS, Dr. Bone INJECTION OF EYE DRUG Right 11/04/2014 # 2 Eylea OD, INJECTION OF EYE DRUG Left 12/21/2014 # 2 Eylea OS, INJECTION OF EYE DRUG Right 12/30/2014 # 3 Eylea OD, INJECTION OF EYE DRUG Left 01/19/2015 # 3 Eylea OS, INJECTION OF EYE DRUG Right 02/02/2015 # 4 Eylea OD, INJECTION OF EYE DRUG Left 02/23/2015 # 4 EYLEA OS, Dr. Bone INJECTION OF EYE DRUG Right 03/23/2015 # 5 Eylea OD, INJECTION OF EYE DRUG Left 04/20/2015 # 5 Eylea OS, INJECTION OF EYE DRUG Right 05/25/2015 # 6 Eylea OD, INJECTION OF EYE DRUG Left 06/15/2015 # 6 Eylea OS, Dr. Bone INJECTION OF EYE DRUG Right 07/06/2015 # 7 Eylea OD, Dr. Bone INJECTION OF EYE DRUG Left 08/04/2015 # 7 Eylea OS, INJECTION OF EYE DRUG Right 08/24/2015 # 8 Eylea OD, INJECTION OF EYE DRUG Left 09/28/2015 # 8 EYLEA OS, Dr. Boen INJECTION OF EYE DRUG Right 10/26/2015 #9 Eylea OD, Dr Lizandro Lagunasgreenvasyl INJECTION OF EYE DRUG Left 11/24/2015 # 9 Eylea OS, INJECTION OF EYE DRUG Right 12/29/2015 # 10 Eylea OD, Dr Bone INJECTION OF EYE DRUG Left 02/09/2016 # 10 Eylea OS, Dr. Bone INJECTION OF EYE DRUG Right 03/21/2016 # 11 Eylea OD; Dr. Bone INJECTION OF EYE DRUG Left 05/02/2016 # 11 Eylea OS, INJECTION OF EYE DRUG Right 05/30/2016 # 12 Eylea OD, INJECTION OF EYE DRUG Left 07/11/2016 # 12 Eylea OS; Dr. Bone INJECTION OF EYE DRUG Right 08/08/2016 # 13 Eylea OD, Dr. Bone INJECTION OF EYE DRUG Left 09/12/2016 # 13 Eylea OS, Dr. Bone INJECTION OF EYE DRUG Right 11/08/2016 # 14 Eylea OD, Dr. Bone INJECTION OF EYE DRUG Left 12/05/2016 # 14 Eylea OS, Dr. Bone INJECTION OF EYE DRUG Right 01/16/2017 # 15 Eylea OD, Dr. Bone INJECTION OF EYE DRUG Left 02/13/2017 # 15 Eylea OS, Dr. Bone INJECTION OF EYE DRUG Right 03/21/2017 # 16 Eylea OD, Dr Bone INJECTION OF EYE DRUG Left 04/24/2017 # 16 Eylea OS, Dr. Bone INJECTION OF EYE DRUG Right 06/05/2017 # 17 Eylea OD, Dr. Bone INJECTION OF EYE DRUG Left 07/04/2017 # 17 Eylea OS, Dr. Bone INJECTION OF EYE DRUG Left 09/12/2017 # 18 Eylea OS, INJECTION OF EYE DRUG Right 09/19/2017 # 18 Eylea OD; Dr. Bone INJECTION OF EYE DRUG Left 11/21/2017 #19 Eylea, OS, Dr. Bone INJECTION OF EYE DRUG Right 12/19/2017 #19 Eylea OD, Dr. Bone INJECTION OF EYE DRUG Left 01/23/2018 # 20 Eylea OS, Dr. Bone INJECTION OF EYE DRUG Left 04/02/2018 # 21 Eylea OS, INJECTION OF EYE DRUG Right 04/10/2018 # 20 Eylea OD, Dr. Bone INJECTION OF EYE DRUG Left 05/29/2018 # 22 Eylea OS, Dr. Bone INJECTION OF EYE DRUG Right 07/23/2018 # 21 Eylea OD, INJECTION OF EYE DRUG Left 08/20/2018 # 23 Eylea OS, INJECTION OF EYE DRUG Left 10/22/2018 # 24 Eylea OS; Dr. Bone INJECTION OF EYE DRUG Left 12/31/2018 # 25 Eylea OS, INJECTION OF EYE DRUG Right 02/05/2019 # 22 Eylea OD, Dr. Bone INJECTION OF EYE DRUG Left 03/12/2019 # 26 Eylea OS, Dr. Bone INJECTION OF EYE DRUG Left 05/28/2019 # 27 Eylea OS, INJECTION OF EYE DRUG Right 06/11/2019 # 23 Eylea OD, Dr. Bone INJECTION OF EYE DRUG Left 07/22/2019 # [address] Bone INJECTION OF EYE DRUG Right 08/05/2019 # 24 Eylea OD, INJECTION OF EYE DRUG Left 09/09/2019 # 29 Eylea OS, INJECTION OF EYE DRUG Left 11/25/2019 # 30 Eylea OS, Dr. Bone INJECTION OF EYE DRUG Right 12/17/2019 # 25 Eylea OD, Dr. Bone INJECTION OF EYE DRUG Left 01/22/2020 # 31 Eylea OS, Dr. Bone INJECTION OF EYE DRUG Right 03/02/2020 # 26 Eylea OD, INJECTION OF EYE DRUG Left 04/06/2020 # 32 Eylea OS, INJECTION OF EYE DRUG Right 05/12/2020 # 27 Eylea OD, INJECTION OF EYE DRUG Left 06/15/2020 # 33 Eylea OS, Dr. Bone INJECTION OF EYE DRUG Right 07/27/2020 # 28 Eylea OD, INJECTION OF EYE DRUG Left 09/07/2020 # 34 Eylea OS, Dr. Bone INJECTION OF EYE DRUG Right 10/19/2020 # 29 Eylea OD, Dr. Bone INJECTION OF EYE DRUG Left 11/23/2020 #35 Eylea Os, Dr Bone IOF CT GUIDED NEEDLE BIOPSY 02/18/2014 CT GUIDED NEEDLE ASPIRATION BIOPSY performed by Sky Pascal MD at [place] [place] VENOUS ACCESS NON-MEDIPORT 12/14/2021 LASER TRABECULOPLASTY 09/14/2010 laser procedure OS, Dr. Bone LASER TRABECULOPLASTY 12/15/2010 Laser procedure OD; Dr. Bone LASER TRABECULOPLASTY 12/28/2010 Laser procedure OD; Dr. Bone LASER TRABECULOPLASTY 01/17/2011 Laser procedure OD; Dr. Bone LASER TRABECULOPLASTY 04/16/2012 Focal/Grid Laser Procedure Right Eye, Dr. Bone LASER TRABECULOPLASTY 06/04/2012 Laser Procedure Left Eye, MAMMOGRAM - 1 BREAST 10/09/2007 birad code 2 MAMMOGRAM - BILATERAL 08/02/2005 Birad code 2/Benign findings MISCELLANEOUS ORDER ([facility] ONLY) 10/19/2010 AVASTIN CONSENT SIGNED OS; DR LIZANDRO JOHNSON ORDER ([facility] ONLY) 03/28/2011 AVASTIN OD CONSENT SIGNED, DR. LIZANDRO NOLANDCELLANEOUS ORDER ([facility] ONLY) 03/21/2012-03/21/2013 KENALOG CONSENT SIGNED OS; DR LIZANDRO JOHNSON ORDER ([facility] ONLY) 11/12/2012-11/12/2013 KENALOG OD CONSENT SIGNED, Dr. Lizandro VALENZUELAANEOUS ORDER ([facility] ONLY) 05/13/2013-05/13/2014 Avastin OD consent signed, Dr.Cessna NOLANDCELLANEOUS ORDER ([facility] ONLY) 08/20/2013-08/20/2014 LUCENTIS 0.3mg OS CONSENT SIGNED, Dr. Lizandro NOLANDCELLANEOUS ORDER ([facility] ONLY) 09/17/2013-09/17/2014 LUCENTIS 0.3MG OD CONSENT SIGNED; DR LIZANDRO JHONSON ORDER ([facility] ONLY) Right 09/08/2014-09/09/2015 LUCENTIS 0.3mg OD CONSENT SIGNED, Dr. Lizandro NOLANDCELLANEOUS ORDER ([facility] ONLY) Left 09/08/2014-09/09/2015 LUCENTIS 0.3mg OS CONSENT SIGNED, Dr. Lizandro JOHNSON ORDER ([facility] ONLY) Bilateral 09/29/2014-09/30/2015 EYLEA CONSENT OU SIGNED; DR LIZANDRO JOHNSON ORDER ([facility] ONLY) Bilateral 09/28/2015-09/27/2016 EYLEA OU CONSENT SIGNED, Dr. Lizandro JOHNSON ORDER ([facility] ONLY) Bilateral 12/05/2016-12/05/2017 EYLEA CONSENT OU SIGNED; DR LIZANDRO JOHNSON ORDER ([facility] ONLY) Bilateral 12/19/2017-12/19/2018 EYLEA CONSENT OU SIGNED; DR LIZANDRO JOHNSON ORDER ([facility] ONLY) ACT 112 FORM SIGNED; DR BONE (08/20/2018) ALEX ORDER ([facility] ONLY) Bilateral 12/31/2018-01/01/2020 Eylea OU consent signed, Dr.Cessna ALEX MARKHAM ([facility] ONLY) Bilateral 01/22/2020-01/21/2021 EYLEA OU CONSENT SIGNED, DR. BONE OTHER right knee mensicus PACEMAKER INSERTION PER PACEMAKER INSERTION, EXISTING MULTIPLE LEAD MI REPLACEMENT MITRAL VALVE W/CARDIOPULMONARY BYP MI RPLCMT PROST AORTIC VALVE OPEN XCP HOMOGRF/STENT REMOVE CATARACT, INSERT LENS PROSTH 03/24/2013 Left eye REMOVE TONSILS & ADENOIDS, AGE 12+ Tonsillectomy/Adenoids,12+ Y/O UPPER ENDOSCOPY, OUTSIDE PROCEDURE Medications Current Outpatient Medications Medication Sig Dispense Refill GELATIN 600 MG PO CAPS one by mouth daily ONE-A-DAY 50 PLUS PO TABS BLOOD PRESSURE MONITOR/L CUFF MISC for home bp log 1 Device 0 ASPIRIN 81 MG PO TABS 1 TABLET DAILY 30 Tab 5 loratadine (CLARITIN) 10 MG Tablet 1/2 tab daily 30 Tab 5 famotidine (PEPCID) 20 MG Tablet Take 1 Tab by mouth 2 times a day. 180 Tab 3 polyethylene glycol 3350 (MIRALAX) 119 gram POWD Take 119 g by mouth daily as needed for Constipation. Psyllium (METAMUCIL) 0.52 G Capsule Take 1 Capsule by mouth in the morning. Magnesium 100 MG Capsule Take 1 Capsule by mouth once a day on Sunday, Sunday, and Sunday only. Cholecalciferol 1000 UNITS Tablet Take 1 Tablet by mouth in the morning. zoster vac recomb adjuvanted (SHINGRIX) 50 MCG/0.5ML injection Inject 0.5 mL into a large muscle now and repeat dose in 60 to 180 days. Please fax date this was given to our office. 1 Each 1 Sevelamer HCl 800 MG Oral Tablet (RENAGEL) TAKE ONE TABLET BY MOUTH THREE TIMES DAILY WITH MEALS (Patient taking differently: Taking twice per day) 270 Tab 2 OneTouch Ultra Blue In Vitro Strip (Glucose Blood) TEST BLOOD SUGAR TWICE DAILY. Dx: E11.21 200 Strip 3 OneTouch UltraSoft Lancets Use to test blood sugar twice daily 200 Each 3 BD Pen Needle Short U/F 31G X 8 MM (Insulin Pen Needle) USE 4 TIMES DAILY DIRECTED 100 Each 5 Mucinex 600 MG Oral Tablet Extended Release 12 Hour (guaiFENesin ER) Take 1 Tablet by mouth 2 timesa day as needed for Congestion. Take with plenty of water. Do not cut, crush or chew 40 Tab 2 FreeStyle Jose E 2 Sensor once. Montelukast Sodium 10 MG Oral Tablet (Singulair) TAKE 1 TABLET BY MOUTH EVERY EVENING 90 Tablet 3 Albuterol Sulfate HFA 108 (90 Base) MCG/ACT Inhalation Aerosol Solution Inhale 1 Puff by mouth every 4 hours as needed for Wheezing. 18 g 5 Fluticasone-Salmeterol 250-50 MCG/ACT Inhalation Aerosol Powder Breath Activated (Advair Diskus) Inhale 1 Puff by mouth in the morning and 1 Puff before bedtime. 1 Each 5 FreeStyle Jose E 3 [place] Device Use as directed. E11.9 1 Each 0 FreeStyle Jose E 3 Sensor Use as directed every 14 days. 6 Each 3 Levothyroxine Sodium 175 MCG Oral Tablet (Levoxyl) Take 1 Tablet by mouth in the morning. on an empty stomach.. 30 Tablet 5 Insulin Glargine 100 UNIT/ML Subcutaneous Solution Pen-injector (Lantus) Inject 9 Units under the skin daily. 3 Each 0 Midodrine HCl 2.5 MG Oral Tablet (Proamatine) Take 1 Tablet by mouth in the morning and 1 Tablet atnoon and 1 Tablet before bedtime. Simbrinza 1-0.2 % Ophthalmic Suspension (Brinzolamide-Brimonidine) INSTILL ONE DROP INTO RIGHT EYE TWICE DAILY 10 mL 12 No current facility-administered medications for this visit. Allergies Review of patient's allergies indicates: Allergen Reactions Adhesive Tape Amlodipine Brovana [Arformoterol] Other (Please comment) Flare of asthma Budesonide Itching Pt reports itching in throat and ears after use. Calamine Chondroitin Affect eyes Codeine Other (Please comment) nightmares Ipratropium [facility] Cough Penicillins Statins Edema Other Severe swelling throughout body Sulfa Antibiotics Thimerosal (Thiomersal) Hives Triple Antibiotic [Neomycin-Bacitracin Zn-Polymyx] Rash Family History Family History Problem Relation Name Age of Onset Cancer Mother --stomach, moles removed -unsure if they were cancerous Alcohol and Other Disorders Associated Father Neurological Disorder Father parkinson's Eye Problems Father AMD, ?blindness with Age Stroke Father 78 TIA Heart Disorder Father Hypertension Father Other (Other) Sister lymphedema Eye Problems Sister amblyopia Eye Problems Sister eye operation at 1 1/2 years old not sure why, has vision problems Neurological Disorder Sister Seizure disorder Cancer Brother skin No Past Hx Brother Cancer Grandmother (Paternal) Neurological Disorder Grandfather (Paternal) parkinson's Eye Problems Grandfather (Paternal) AMD, ?blindness with Age Stroke Grandfather (Paternal) TIA Diabetes Uncle (Unspecified) great uncle Other (CKD, ESRD, nephrolithiasis) None Diabetes Other cousin's very brittle DM Breast Cancer No significant family history Social History Social History Tobacco Use Smoking status: Never Smoker Smokeless tobacco: Never Used Substance Use Topics Alcohol use: Yes Comment: glass of wine 1-2 times monthly; very rare beer 1-2 times yearly Review of Systems Negative for constitutional, eyes, hepatic, renal, digestive, hematologic, epileptic, syncopal, musculo-skeletal, mental health, integumentary, hypertensive, lipid, arthritic, diabetic, thyroid or neurologic disorders (except as listed in the PMH and Problem List). Physical Examination: Temp 36.4 C (97.6 F) (Tympanic) | Ht 1.575 m (5' 2") | Wt 76.2 kg (168 lb) | BMI 30.73 kg/m |BSA 1.83 m PHYSICAL EXAM General: This is a healthy appearing female who appears her stated age. The patient is alert and appropriately verbally conversant without hoarseness. Face: The face was inspected and no cutaneous masses or lesions were visualized. There was no erythema or edema noted. Facial movement was symmetric without weakness. No skin lesions were detected. There was no sinus tenderness elicited. The parotid and submandibular glands were normal to palpation. Eyes: Extra-ocular muscle function was intact. No nystagmus was observed. Pupils were equal. Cranial Nerves: Cranial nerves II, III, IV, and were noted to be intact via extra-ocular muscle movement testing. Cranial nerve VII noted to be intact and symmetric by facial movement. Cranial nerve VIII was tested with tuning fork examination and revealed symmetric hearing. Cranial nerves IX and X noted to be intact by gag reflex and palatal movement. Cranial nerve XII noted to be intact by active and symmetric tongue movement. Nose: Examination of the nose revealed no masses, polyps, mucopus, or other lesion. The nasal septum was non-obstructing. The turbinates were without abnormality. PROCEDURE videolaryngoscopy The patient's nose was topically anesthetized with topical Afrin and topical Lidocaine 4%. The chip-tip scope was introduced transnasally and advanced until a good view of the larynx was obtained. Stenosis directly under the cords is minimal, but patient states stenosis is further down. No access to tracheoscopy here in our office We will get a CT scan of the neck but it will have to be without contrast as she is on dialysis. 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 Johnson. In meantime can have her on a PPI, H2 niki and Bactrim. Last visit with Dr. Orlando, lost to follow-up - patient reassured SG stenosis was stable - explained to her that she needs to make the cardiac surgeon and anesthesiologist who are involvedher in case aware of her SG stenosis I spent a total of 30-39 minutes (exact time 30 mins) on the date of service in preparation, delivery, and documentation of the care provided to Cynthia Pozo excluding any time spent in the performance of separately billed services or time spent by another provider/QHP. documented in this encounter Nursing Notes * Zulay Albright, MELY - 04/15/2024 1:57 PM EDT Patient presents today for subglottic stenois. Was seen in [address] Orlando. She notes she is having post nasal drip. She is also having issues swallowing her pills. The pills are to large and getting stuck. documented in this encounter Plan of Treatment Upcoming Encounters Date Type Department Care Team (Late st Contact Info) Description 04/22/2024 3:00 PM EDT Imaging Radiology [address] [place] [address] 06/12/2024 9:00 AM EST Office Visit General Internal Medicine [facility] [address] [facility] [place] [address] Amada Vasquez MD 200 [facility] [place] [place] [address] 10/09/2024 10:15 AM EDT Office Visit Ophthalmology, [facility] [address] [place] [address] Obed Bone DO [address] [place] [address] Scheduled Orders Name Type Priority Associated Diagnoses Orde r Schedule CT NECK WO CONTRAST Medical Imaging Routine Tracheal stenosis Expected: 04/22/2024, Expires: 05/16/2025 Scheduled Referrals Name Type Priority Associated Diagnoses Order Schedule ADULT/PEDS OTOLARYNGOLOGY REFERRAL OP Referral Within 10 days (routine) Tracheal stenosis Ordered: 04/15/2024 Health Maintenance Due Date Last Done Comments [...] as of this encounter Visit Diagnoses Diagnosis Tracheal stenosis- Primary Other diseases of trachea and bronchus documented in this encounter Care Teams Chauffeur [employer] Limousine Relationship Specialty Start Date End Date Amada Vasquez MD [address] [facility] [place] [address] PCP - General Internal Medicine 01/14/24 documented as of this encounter
--- OUTSIDE RECORDS SUMMARY | 2024-05-07 20:34 | External Medical Summary ---
Author Name Unknown Address Unknown Organization [id number]:LABORATORY [facility] [address] [place] [address] Laboratory Report Ordering Provider Test Date Status ERIK DOUGLAS 04/10/2024 10:09:50 Final Observation Date Value Abnormality Reference (Units ) Status BUN 04/10/2024 10:09:50 26 Above high normal 6-20 (mg/dL) Final Creatinine 04/10/2024 10:09:50 4.0 Above high normal 0.5-1.0 (mg/dL) Final Glomerular filtration rate/1.73 sq M.predicted [Volume Rate/Area] in Serum, Plasma or Blood by Creatinine-based formula (CKD-EPI) 04/10/2024 10:09:50 11 Below low normal >=60 (mL/min) Final eGFR is calculated based on the CKD-EPI 2020 equation. Sodium 04/10/2024 10:09:50 139 135-146 (m mol/L) Final Potassium 04/10/2024 10:09:50 4.0 3.5-5.1 (m mol/L) Final Cl 04/10/2024 10:09:50 91 Below low normal 98- 107 (mmol/L) Final CO2 04/10/2024 10:09:50 34 Above high normal 22 -32 (mmol/L) Final Anion gap 04/10/2024 10:09:50 14 7-15 (mmol /L) Final Glucose 04/10/2024 10:09:50 211 Above high normal 70 -120 (mg/dL) Final Albumin 04/10/2024 10:09:50 4.0 3.8-5.0 (g /dL) Final AST (Aspartate aminotransferase) 04/10/2024 10:09:50 16 10-35 (U/L) Fin al Alk Phos 04/10/2024 10:09:50 149 Above high normal 35 -130 (U/L) Final Bilirubin, Total 04/10/2024 10:09:50 0.7 <=1 .2 (mg/dL) Final Calcium 04/10/2024 10:09:50 9.4 8.4-10.2 ( mg/dL) Final Protein 04/10/2024 10:09:50 7.6 6.0-8.3 (g /dL) Final ALT (Alanine aminotransferase) 04/10/2024 10:09:50 15 10-35 (U/L) Jayden miramontes Performing Location LABORATORY [facility] [address] [facility] [address]
--- OUTSIDE RECORDS SUMMARY | 2024-05-07 20:34 | External Medical Summary | Summary of Care ---
Author Name Unknown Organization [facility] Address [address] [place] [address] Phone [phone] Care Team Providers Care Sizing Machine Operator Name Role Phone Amada Vasquez MD Primary Care Provider [phone] Encounter Details Date Type Department Care Team (Late st Contact Info) Description 04/11/2024 Orders Only Family Practice [facility] [address] [place] [address] Mayo Mitchell MD [facility] [place] [address] Ulcers of both lower legs (HCC)*; Edema of right ankle Allergies Active Allergy Reactions Criticality Noted Date Comments Adhesive Tape 05/20/2019 Amlodipine 08/20/2019 Arformoterol Other (Please comment) 11/02/2015 Flare of asthma Budesonide Itching 03/04/2014 Pt reports itching in throat and ears after use. Calamine 11/16/1999 Chondroitin 05/27/2010 Affect eyes Codeine Other (Please comment) 01/28/2019 nightmares Ipratropium Bowlegs Hfa Cough 11/02/2015 Penicillins 11/16/1999 Statins Edema Other 05/08/2018 Severe swelling throughout body Sulfa Antibiotics 11/16/1999 Thimerosal (Thiomersal) Hives 09/14/2010 Neomycin-Bacitracin Zn-Polymyx Rash 09/14/2010 documented as of this encounter (statuses as of 04/11/2024) Medications Medication Sig Dispensed Refills Start Date End Date Status GELATIN 600 MG PO CAPS one by mouth daily Active ONE-A-DAY 50 PLUS PO TABS 08/23/2012 Active BLOOD PRESSURE MONITOR/L CUFF MISCIndications:Prot einuria,HTN, goal below 130/80 for home bp log 1 Device 0 09/30/2012 Active ASPIRIN 81 MG PO TABSIndications:Kidn ey disease, chronic, stage IV (GFR 15-29 ml/min) ([facility]),Nephrotic syndrome 1 TABLET DAILY 30 Tab [...] with diabetes mellitus due to underlying condition ([facility]),Type 2 diabetes mellitus with diabetic nephropathy, with long-term current use of insulin ([facility]) TEST BLOOD SUGAR TWICE DAILY. Dx: E11.21 200 Strip 3 06/21/2020 Active OneTouch UltraSoft LancetsIndications:T ype 2 diabetes mellitus with diabetic nephropathy, with long-term current use of insulin ([facility]),Proliferative diabetic retinopathy of both eyes without macular edema associated with diabetes mellitus due to underlying condition ([facility]) Use to test blood sugar twice [...] 5 12/04/2023 Active FreeStyle Jose E 3 [place] DeviceIndications:Ty pe 2 diabetes mellitus with diabetic nephropathy, with long-term current use of insulin ([facility]),Proliferative diabetic retinopathy of both eyes without macular edema associated with diabetes mellitus due to underlying condition ([facility]) Use as directed. E11.9 1 Each 01/15/2024 Active FreeStyle Jose E 3 SensorIndications:Ty pe 2 diabetes mellitus with diabetic nephropathy, with long-term current use of insulin ([facility]),Proliferative diabetic retinopathy of both eyes without macular edema associated with diabetes mellitus due to underlying condition ([facility]) Use as directed every 14 days. [...] as of this encounter (statuses as of 04/11/2024) Active Problems Problem Noted Date Diagnosed Date [...] as of this encounter (statuses as of 04/11/2024) Resolved Problems Problem Noted Date Diagnosed Date [...] as of this encounter (statuses as of 04/11/2024) Immunizations Name Administration Dates Next Due COVID-19 mRNA, LNP-s, No Pre serve, 2-Dose Series ([employer]) 08/25/2020,08/04/2020 COVID-19, MRNA-LNP, 23-24, P F, 30 MCG/0.3 mL, 12 YRS AND ABOVE, IM (PFIZER-Comirnat) 04/06/2023 Hepatitis B, 20+ yrs 09/14/2015,04/22/2015,03/16 Pneumococcal [...] on file documented as of this encounter Plan of Treatment Upcoming Encounters Date Type Department Care Team (Late st Contact Info) Description 04/15/2024 2:00 PM EDT Office Visit Otolaryngology [facility] [address] [place] [address] Isabel Mora MD [address] [place] [address] 06/12/2024 9:00 AM EST Office Visit General Internal Medicine [facility] [place] [address] [place] [address] Amada Vasquez MD 200 [facility] [place] [address] 10/09/2024 10:15 AM EDT Office Visit Ophthalmology, [facility] [address] [place] [address] Obed Bone, [address] [place] [address] Pending Results Name Type Priority Associated Diagnoses Date /Time XR ANKLE 3 OR MORE VIEWS Medical Imaging Routine Ulcers of both lower legs (HCC) Edema of right ankle 04/11/2024 3:15 PM EDT Health Maintenance Due Date Last Done Comments [...] as of this encounter Visit Diagnoses Diagnosis Ulcers of both lower legs (HCC)- Primary Ulcer of lower limb, unspecified Edema of right ankle documented in this encounter Care Teams Sizing Machine Operator Relationship Specialty Start Date End Date Amada Vasquez MD [address] [place] [address] PCP - General Internal Medicine 01/14/24 documented as of this encounter
--- OUTSIDE RECORDS SUMMARY | 2024-05-07 20:34 | External Medical Summary ---
Author Name Unknown Address Unknown Organization K0G:LABORATORY [facility] [address] [place] [address] Laboratory Report Ordering Provider Test Date Status ERIK DOUGLAS 04/10/2024 10:09:50 Final Observation Date Value Abnormality Reference (Units ) Status WBC, Total 04/10/2024 10:09:50 4.93 4.00-10.8 0 (K/uL) Final RBC 04/10/2024 10:09:50 3.07 3.85-5.15 (M/uL) Final Hemoglobin 04/10/2024 10:09:50 10.1 Below low normal 12 .0-15.3 (g/dL) Final HCT 04/10/2024 10:09:50 31.3 Below low normal 36. 0-45.2 (%) Final MCV 04/10/2024 10:09:50 102.0 81.5-97.5 (fL) Final MCH 04/10/2024 10:09:50 32.9 27.0-34.0 (pg) Final MCHC 04/10/2024 10:09:50 32.3 32.0-36.0 (g/dL) Final RDW 04/10/2024 10:09:50 15.3 11.5-15.5 (%) Final Platelets 04/10/2024 10:09:50 205 140-400 (K /uL) Final MPV 04/10/2024 10:09:50 10.7 6.6-11.1 ( fL) Final Performing Location LABORATORY [facility] [address] [place] [address]
--- OUTSIDE RECORDS SUMMARY | 2024-05-07 20:34 | External Medical Summary ---
Author Name Unknown Address Unknown Organization K01:LABORATORY [facility] [place] - [address] [place] [address] Laboratory Report Ordering Provider Test Date Status STELLARUFINOAMIE 04/10/2024 10:09:50 Final Observation Date Value Abnormality Reference (Units ) Status CRP, low-sensitivity 04/10/2024 10:09:50 26 Above high normal <=5 (mg/L) Final Performing Location LABORATORY [facility] - [address] [place] [address]
--- OUTSIDE RECORDS SUMMARY | 2024-05-07 20:34 | External Medical Summary | Summary of Care ---
Author Name Unknown Organization [facility] Address [address] [place] [address] Phone [phone] Care Team Providers Care Automation Analyst Name Role Phone Amada Vasquez MD Primary Care Provider [phone] Reason for Referral * Evaluate & Treat - Unlimited Visits (Within 10 days (routine)) - Authorized Specialty Diagnoses / Procedures Referred By Shankar moreno Referred To Contact Ophthalmology Diagnoses Type 2 diabetes mellitus with diabetic nephropathy, with long-term current use of insulin (HCC) Proliferative diabetic retinopathy of both eyes without macular edema associated with diabetes mellitus due to underlying condition (HCC) Amada Vasquez MD [address] [place] [address] Referral ID Status Reason Start Date Expiration Date Visits Requested Visits Authorized [id number] Authorized Specialty Services Required 03/13/[phone] Question Answer Referral Priority Within 10 days (routine) Where should this appointment be scheduled? ising Referring for: Optometry Conditions Optometry Conditions Other Optometry (comment) Comments DM eye exam Reason for Visit * Reason Onset Date Comments Referral 03/13/2024 FYI 03/13/2024 Encounter Details Date Type Department Care Team (Late st Contact Info) Description 03/13/2024 Telephone Access Center, [place] [address] [facility] *DO NOT REMOVE THIS DEPARTMENT* [place] [address] Services, Scheduling [address] [place] [address] Referral; Allergies Active Allergy Reactions Criticality Noted Date Comments Adhesive Tape 05/20/2019 Amlodipine 08/20/2019 Arformoterol Other (Please comment) 11/02/2015 Flare of asthma Budesonide Itching 03/04/2014 Pt reports itching in throat and ears after use. Calamine 11/16/1999 Chondroitin 05/27/2010 Affect eyes Codeine Other (Please comment) 01/28/2019 nightmares Ipratropium Bly Hfa Cough 11/02/2015 Penicillins 11/16/1999 Statins Edema Other 05/08/2018 Severe swelling throughout body Sulfa Antibiotics 11/16/1999 Thimerosal (Thiomersal) Hives 09/14/2010 Neomycin-Bacitracin Zn-Polymyx Rash 09/14/2010 documented as of this encounter (statuses as of 03/13/2024) Medications Medication Sig Dispensed Refills Start Date End Date Status GELATIN 600 MG PO CAPS one by mouth daily Active ONE-A-DAY 50 PLUS PO TABS 08/23/2012 Active BLOOD PRESSURE MONITOR/L CUFF MISCIndications:Prot einuria,HTN, goal below 130/80 for home bp log 1 Device 0 09/30/2012 Active ASPIRIN 81 MG PO TABSIndications:Kidn ey disease, chronic, stage IV (GFR 15-29 ml/min) ([facility]),Nephrotic syndrome 1 TABLET DAILY 30 Tab 5 02/04/2014 Active loratadine (CLARITIN) 10 MG TabletIndications:Tr acheitis, chronic, with laryngitis,Asthma with severity to be determined,Chronic frontal sinusitis 1/2 tab daily 30 Tab 5 11/03/2015 Active Additional Information Patient not taking.Reported on 09/06/2023 famotidine (PEPCID) 20 MG TabletIndications:Ga stroesophageal reflux [...] our office. 1 Each 1 01/28/2019 Active Brinzolamide-Brimoni dine (SIMBRINZA) 1-0.2 % SUSPIndications:Diab etic macular edema (HCC) INSTILL ONE DROP INTO RIGHT EYE TWICE DAILY 10 mL 12 01/05/2020 Active Sevelamer HCl 800 MG Oral Tablet (RENAGEL) TAKE ONE TABLET BY MOUTH THREE TIMES DAILY WITH MEALS 270 Tab 2 04/26/2020 Active Additional Information Patient taking differently: Taking twice per day, Reported on 07/12/2023 OneTouch Ultra Blue In Vitro Strip (Glucose Blood)Indications:Pr oliferative diabetic retinopathy of both eyes without macular edema associated with diabetes mellitus due to underlying condition ([facility]),Type 2 diabetes mellitus with diabetic nephropathy, with long-term current use of insulin ([facility]) TEST BLOOD SUGAR TWICE DAILY. Dx: E11.21 200 Strip 3 06/21/2020 Active OneTouch UltraSoft LancetsIndications:T ype 2 diabetes mellitus with diabetic nephropathy, with long-term current use of insulin ([facility]),Proliferative diabetic retinopathy of both eyes without macular edema associated with diabetes mellitus due to underlying condition ([facility]) Use to test blood sugar twice daily 200 Each 3 06/21/2020 Active BD Pen Needle Short U/F 31G X 8 MM (Insulin Pen Needle)Indications:T ype 2 diabetes mellitus with hemoglobin A1c goal of less than 7.0% ([facility]) USE 4 TIMES DAILY DIRECTED 100 Each [...] 5 12/04/2023 Active FreeStyle Jose E 3 [place] DeviceIndications:Ty pe 2 diabetes mellitus with diabetic nephropathy, with long-term current use of insulin (HCC),Proliferative diabetic retinopathy of both eyes without macular edema associated with diabetes mellitus due to underlying condition (HCC) Use as directed. E11.9 1 Each 01/15/2024 Active FreeStyle Jose E 3 SensorIndications:Ty pe 2 diabetes mellitus with diabetic nephropathy, with long-term current use of insulin (HCC),Proliferative diabetic retinopathy of both eyes without macular edema associated with diabetes mellitus due to underlying condition (HCC) Use as directed every 14 days. 6 Each 3 01/15/2024 Active Levothyroxine Sodium 175 MCG Oral Tablet (Levoxyl) Take 1 Tablet by mouth in the morning. on an empty stomach.. 30 Tablet 5 02/08/2024 Active documented as of this encounter (statuses as of 03/13/2024) Active Problems Problem Noted Date Diagnosed Date [...] as of this encounter (statuses as of 03/13/2024) Resolved Problems Problem Noted Date Diagnosed Date [...] as of this encounter (statuses as of 03/13/2024) Immunizations Name Administration Dates Next Due COVID-19 mRNA, LNP-s, No Pre serve, 2-Dose Series ([employer]) 08/25/2020,08/04/2020 COVID-19, MRNA-LNP, 23-24, P F, 30 MCG/0.3 mL, 12 YRS AND ABOVE, IM (PFIZER-Comirnaty) 04/06/2023 Hepatitis B, 20+ yrs 09/14/2015,04/22/2015,03/16 Influenza, Whole Virus 06/05/2005 Pneumococcal Conjugate Vacc, 13 Valent (Prevnar) 02/13/2018 Pneumococcal Conjugate Vacci ne, 7 Valent 04/25/2007 Pneumococcal Polysaccharide PPV23 (Pneumovax) 11/20/2013 Seasonal Influenza Virus Vac cine, Unspecified Formulation 04/06/2023 Seasonal Influenza, High Dos e, Trivalent, PF, IM (Fluzone HD) 03/19/2020,03/26/2019 Seasonal Influenza, MDCK, Tr ivalent, PF, (Flucelvax) 05/02/2013 Seasonal Influenza, PF, 6 M & above, IM , (FluLaval or Fluzone) 04/02/2018,05/02/2017 Seasonal Influenza, Quadriva lent, No Preserve, IM 03/22/2016 03/22/2017 Seasonal Influenza, Trivalen t, (IIV3), with Preserv, (Fluzone) 04/06/2023,03/16/2015,04/29/2014,12/2011,03/22/2011,03/18/2010,03/31/20 09,04/25/2007,05/16/2006,04/08/2003 Seasonal Influenza, Trivalen t, Adjuvanted, 65+ YRS, [...] encounter Miscellaneous Notes * Telephone Encounter - WidKelly barton OSA - 03/13/2024 2:48 PM EDT Pt called re her 04/10/[address] Bone. Pt aware ins is out of network. States she called insurance and was told that would need to update his profile in [facility] for [facility] to bein network. She wanted me to pass this on. * Telephone Encounter - Phoebe Hill, RN - 03/13/2024 9:24 AM EDT Referral signed. Please help schedule. Reason for Call: Referral Contact: Telephone Call Contact Type: Referral(s) Placed Provider In-Basket: No Outcome: see above Face to face time spent with Patient (minutes): 0 Total Time including non face to face (minutes): 10 * Telephone Encounter - Juliana Lucio LPN - 03/13/2024 9:08 AM EDT Referral pended. Last PCP office visit 12/04/23. * Telephone Encounter - Karla Valdovinos OSA - 03/13/2024 9:03 AM EDT Has the patient been seen for this problem? (Y/N)?: Y If No, an appt needs to be scheduled before a referral will be placed (exception: proceed with referral request if referral request is for a yearly routine appointment with speciality) Patient Name: Cynthia Lam Sánchez Patient Primary care provider: Amada Vasquez MD Does this need to be an insurance referral (Y/N)?: N If Yes, does the insurance referral need to be placed into the [employer] system? Name of preferred specialist: Dr. Arora Type of specialist: Opthalmology Location of specialist: [facility] Specialist's Phone #: n/a Specialist's Fax #: n/a Reason for visit: Eye Exam Date of visit: Not yet scheduled documented in this encounter Plan of Treatment Upcoming Encounters Date Type Department Care Team (Late st Contact Info) Description 04/10/2024 8:30 AM EDT [facility] [place] [address] Obed Bone DO [address] 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 associated with diabetes mellitus due to underlying condition (HCC) Ordered: 03/13/2024 Health Maintenance Due Date Last Done Comments Adult Wellness Visit 2011 Nephrology Referral 08/16/2013 08/16/2012 Diabetic Eye Exam 11/23/2021 11/23/2020, , 09/07/2020, Additional history exists COVID-19 Vaccine ( season) 2024 04/06/2023, 04/06/2023, 12/16/2021, Additional history exists Influenza Vaccine (FLU shot) (#1) 2024 04/06/2023, 04/06/2023, 04/20/2021, Additional history exists Depression Screening 06/28/2024 06/28/2023 HbA1c 07/03/2024 01/01/2024, 06/25, 12/29/2022, Additional history exists PTH 07/10/2024 07/10/2023, 07/2019, 11/11/2019, Additional history exists Phosphate 07/10/2024 07/10/2023, 07/2020, 10/12/2020, Additional history exists Diabetic Foot Exam 11/27/2024 11/28/2023, 1 08/22/2019, 08/20/2019, Additional history exists Hgb 12/31/2024 01/01/2024, 06/25, 11/24/2020, Additional history exists TSH 02/04/2025 02/05/2024, 02/2024, 07/10/2023, Additional history exists Mammogram 02/04/2026 02/05/2024, 02/23, 07/29/2015, Additional history exists Hepatitis B Vaccine Completed 09/14/2015, 04/22/2015, 03/16/2015 Pneumococcal Vaccine: 65+ Years Completed 02/13/2018, 11/20/2013 Colonoscopy Discontinued 04/22/2018, 06/23/2014 Zoster Vaccines Completed 12/19/2019, 08/22/2019 Albumin/Creatinine Ratio Discontinued 024, 05/26/2020, 03/23/2015, Additional history exists HPV (Gardasil) Vaccine Aged Out No lo nger eligible based on patient's age to complete this topic MENINGOCOCCAL (MENACTRA/MENVEO) Aged Out No longer eligible based on patient's age to complete this topic documented as of this encounter Medical Devices Not on filedocumented as of this encounter Visit Diagnoses Diagnosis Proliferative diabetic retinopathy of 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
--- OUTSIDE RECORDS SUMMARY | 2024-05-07 20:34 | External Medical Summary | Summary of Care ---
Author Name Unknown Organization [facility] Address [address] [place] [address] Phone [phone] Care Team Providers Care Hybrid Technologist Name Role Phone Amada Vasquez MD Primary Care Provider [phone] Reason for Referral * Evaluate & Treat - Unlimited Visits (Within 30 days (routine)) - Authorized Specialty Diagnoses / Procedures Referred By Shankar moreno Referred To Contact Otolaryngology Diagnoses Tracheal stenosis Amada Vasquez MD [address] [place] [address] Referral ID Status Reason Start Date Expiration Date Visits Requested Visits Authorized [id number] Authorized Specialty Services Required 03/14/2024 [id number] Question Answer Referral Priority Within 30 days (routine) Where should this appointment be scheduled? [facility] Reason for Referral Other Using "other" may delay scheduling. Only use it if no appropriate choice exists. Acknowledge Please provide more details: tracheal steonissis s/p stretching in past and pt's symptoms returning Reason for Visit * Reason Onset Date Comments Referral 03/13/2024 Encounter Details Date Type Department Care Team (Late st Contact Info) Description 03/13/2024 Telephone Access Center, [place] [address] [facility] *DO NOT REMOVE THIS DEPARTMENT* [place] [address] Services, Scheduling [address] [place] [address] Referral Allergies Active Allergy Reactions Criticality Noted Date Comments Adhesive Tape 05/20/2019 Amlodipine 08/20/2019 Arformoterol Other (Please comment) 11/02/2015 Flare of asthma Budesonide Itching 03/04/2014 Pt reports itching in throat and ears after use. Calamine 11/16/1999 Chondroitin 05/27/2010 Affect eyes Codeine Other (Please comment) 01/28/2019 nightmares Ipratropium [place] Hfa Cough 11/02/2015 Penicillins 11/16/1999 Statins Edema Other 05/08/2018 Severe swelling throughout body Sulfa Antibiotics 11/16/1999 Thimerosal (Thiomersal) Hives 09/14/2010 Neomycin-Bacitracin Zn-Polymyx Rash 09/14/2010 documented as of this encounter (statuses as of 03/14/2024) Medications Medication Sig Dispensed Refills Start Date End Date Status GELATIN 600 MG PO CAPS one by mouth daily Active ONE-A-DAY 50 PLUS PO TABS 08/23/2012 Active BLOOD PRESSURE MONITOR/L CUFF MISCIndications:Prot einuria,HTN, goal below 130/80 for home bp log 1 Device 0 09/30/2012 Active ASPIRIN 81 MG PO TABSIndications:Kidn ey disease, chronic, stage IV (GFR 15-29 ml/min) ([facility]),Nephrotic syndrome 1 TABLET DAILY 30 [...] with diabetes mellitus due to underlying condition ([facility]),Type 2 diabetes mellitus with diabetic nephropathy, with long-term current use of insulin ([facility]) TEST BLOOD SUGAR TWICE DAILY. Dx: E11.21 200 Strip 3 06/21/2020 Active OneTouch UltraSoft LancetsIndications:T ype 2 diabetes mellitus with diabetic nephropathy, with long-term current use of insulin ([facility]),Proliferative diabetic retinopathy of both eyes without macular edema associated with diabetes mellitus due to underlying condition ([facility]) Use to test blood sugar twice daily 200 Each 3 06/21/2020 Active BD Pen Needle Short U/F 31G X 8 MM (Insulin Pen Needle)Indications:T ype 2 diabetes mellitus with hemoglobin A1c goal of less than 7.0% ([facility]) USE 4 TIMES DAILY DIRECTED [...] 5 12/04/2023 Active FreeStyle Jose E 3 [place] DeviceIndications:Ty pe 2 diabetes mellitus with diabetic [...] as of this encounter (statuses as of 03/14/2024) Active Problems Problem Noted Date Diagnosed Date [...] as of this encounter (statuses as of 03/14/2024) Resolved Problems Problem Noted Date Diagnosed Date [...] as of this encounter (statuses as of 03/14/2024) Immunizations Name Administration Dates Next Due COVID-19 mRNA, LNP-s, No Pre serve, 2-Dose Series ([employer] 08/25/2020,08/04/2020 COVID-19, MRNA-LNP, 23-24, P F, [...] Trivalen t, (IIV3), with Preserv, (Fluzone) 04/06/2023,03/16/2015,04/29/2014,12/2011,03/22/2011,03/18/2010,03/31/20 09,04/25/2007,05/16/2006 Seasonal Influenza, Trivalen t, Adjuvanted, 65+ YRS, [...] encounter Miscellaneous Notes * Telephone Encounter - Bettie Alfred OSA - 03/14/2024 2:17 PM EDT Scheduled pt aware * Telephone Encounter - Amada Vasquez MD - 03/14/2024 1:15 PM EDT Signed and sent to scheduling * Telephone Encounter - Radha Nathan, [facility] [email or web address] - 03/14/2024 12:10 PM EDT She states that she'll think about the MTM referral. 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 She states that the openingis the size of a dime instead of a quarter. She had been stretched 5 years ago and isn't certain if that can be done again. * Telephone Encounter - Amada Vasquez MD - 03/13/2024 7:11 PM EDT I would suggest MTM than endocrinology since her diabetes is under control . Let me know * Telephone Encounter - Isabel Nathan CMA - 03/13/2024 3:55 PM EDT Patient requesting endo referral- To assist her with her DM and maintaining proper equipment with her Jose E sensors. She has problems with the sensors and the company replacing them when she does. Please advise if agreeable. * Telephone Encounter - Karla Valdovinos OSA - 03/13/2024 9:05 AM EDT Has the patient been seen for this problem? (Y/N)?: Y If No, an appt needs to be scheduled before a referral will be placed (exception: proceed with referral request if referral request is for a yearly routine appointment with speciality) Patient Name: Cynthia Pozo Patient Primary care provider: Amada Vasquez MD Does this need to be an insurance referral (Y/N)?: Y If Yes, does the insurance referral need to be placed into the [employer] system? Name of preferred specialist: n/a Type of specialist: [employer] Location of specialist: N/a Specialist's Phone #: N/a Specialist's Fax #: N/a Reason for visit: To assist her with her DM and maintaining proper equipment with her Jose E sensors. She has problems with the sensors and the company replacing them when she does Date of visit: n/a documented in this encounter Plan of Treatment Upcoming Encounters Date Type Department Care Team (Late st Contact Info) Description 04/10/2024 8:30 AM EDT Office Visit Ophthalmology, [facility] [address] [place] [address] Obed Bone DO [address] [place] [address] 04/10/2024 9:40 AM EDT Immunization Ancillary [facility] [address] [place] [address] [facility] [address] [facility] [place] [address] 04/15/2024 2:00 PM EDT Office Visit Otolaryngology [facility] [address] [place] [address] Isabel Mora MD [address] [place] [address] Scheduled Referrals Name Type Priority Associated Diagnoses Order Schedule ADULT/PEDS OTOLARYNGOLOGY REFERRAL OP Referral Within 30 days (routine) Tracheal stenosis Ordered: 03/14/2024 Health Maintenance Due Date Last Done Comments [...] 11/24/2020, Additional history exists TSH 02/04/2025 02/05/2024, 070 02/2024, 07/10/2023, Additional history exists Mammogram 02/04/2026 [...] as of this encounter Visit Diagnoses Diagnosis Type 2 diabetes mellitus with diabetic nephropathy, with long-term current use of insulin (HCC)- Primary Tracheal stenosis Other diseases of trachea and bronchus documented in this encounter Care Teams Hybrid Technologist Relationship Specialty Start Date End Date Amada Vasquez MD [address] [place] [address] PCP - General Internal Medicine 01/14/24 documented as of this encounter
--- OUTSIDE RECORDS SUMMARY | 2024-05-07 20:34 | External Medical Summary | Summary of Care ---
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 associated with diabetes mellitus due to underlying condition (HCC) Amada Vasquez MD [address] [place] [address] Referral ID Status Reason Start Date Expiration Date Visits Requested Visits Authorized [id number] Authorized Specialty Services Required 03/13/[phone] Encounter Details Date Type Department Care Team (Late st Contact Info) Description 04/10/2024 8:30 AM EDT Office Visit Ophthalmology, [facility] [address] [place] [address] Obed Bone, [address] [place] [address] Proliferative diabetic retinopathy of both eyes without macular edema associated with diabetes mellitus due to underlying condition (HCC) [E08.3593]*; Diabetic macular edema (HCC) Allergies Active Allergy Reactions Criticality Noted Date Comments Adhesive Tape 05/20/2019 Amlodipine 08/20/2019 Arformoterol Other (Please comment) 11/02/2015 Flare of asthma Budesonide Itching 03/04/2014 Pt reports itching in throat and ears after use. Calamine 11/16/1999 Chondroitin 05/27/2010 Affect eyes Codeine Other (Please comment) 01/28/2019 nightmares Ipratropium Katy Hfa Cough 11/02/2015 Penicillins 11/16/1999 Statins Edema [...] TABS 08/23/2012 Active BLOOD PRESSURE MONITOR/L CUFF MISCIndications:Pr oteinuria,HTN, goal below 130/80 for home bp log 1 Device 0 09/30/2012 Active ASPIRIN 81 MG PO TABSIndications:Ki dney disease, chronic, stage IV (GFR 15-29 ml/min) ([facility]),Nephrotic syndrome 1 TABLET DAILY 30 Tab 5 02/04/2014 Active loratadine (CLARITIN) 10 MG TabletIndications: Tracheitis, chronic, with laryngitis,Asthma with severity to be determined,Chronic frontal sinusitis 1/2 tab daily 30 Tab 5 11/03/2015 Active famotidine (PEPCID) 20 MG TabletIndications: Gastroesophageal reflux disease, esophagitis presence not specified Take [...] and Sunday only. Active Cholecalciferol 1000 UNITS TabletIndications: 5 x weekly Take 1 Tablet by mouth in the morning. Active zoster vac recomb adjuvanted (SHINGRIX) 50 MCG/0.5ML injectionIndicatio ns:Need for shingles vaccine Inject 0.5 mL into [...] OneTouch Ultra Blue In Vitro Strip (Glucose Blood)Indications: Proliferative diabetic retinopathy of both eyes without macular edema associated with diabetes mellitus due to underlying condition ([facility]),Type 2 diabetes mellitus with diabetic nephropathy, with long-term current use of insulin ([facility]) TEST BLOOD SUGAR TWICE DAILY. Dx: E11.21 200 Strip 3 06/21/2020 Active Tab SolutionsTouch UltraSoft LancetsIndications :Type 2 diabetes mellitus with diabetic nephropathy, with long-term current use of insulin ([facility]),Proliferativ e diabetic retinopathy of both eyes without macular edema associated with diabetes mellitus due to underlying condition ([facility]) Use to test blood sugar twice daily 200 Each 3 06/21/2020 Active BD Pen Needle Short U/F 31G X 8 MM (Insulin Pen Needle)Indications :Type 2 diabetes mellitus with hemoglobin A1c goal of less than 7.0% ([facility]) USE 4 TIMES DAILY DIRECTED 100 Each 5 11/13/2020 Active Mucinex 600 MG Oral Tablet Extended Release 12 Hour (guaiFENesin ER)Indications:Chr onic frontal sinusitis Take 1 Tablet by mouth [...] HFA 108 (90 Base) MCG/ACT Inhalation Aerosol SolutionIndication s:Mild intermittent asthma with exacerbation Inhale 1 Puff by mouth every 4 hours as needed for Wheezing. 18 g 5 12/04/2023 Active Fluticasone-Salmet sirena 250-50 MCG/ACT Inhalation Aerosol Powder Breath Activated (Advair Diskus)Indications :Mild intermittent asthma with exacerbation Inhale 1 Puff by mouth in the morning and 1 Puff before bedtime. 1 Each 5 12/04/2023 Active FreeStyle Jose E 3 [place] DeviceIndications: Type 2 diabetes mellitus with diabetic nephropathy, with long-term current use of insulin ([facility]),Proliferativ e diabetic retinopathy of both eyes without macular edema associated with diabetes mellitus due to underlying condition ([facility]) Use as directed. E11.9 1 Each 01/15/2024 Active FreeStyle Jose E 3 SensorIndications: Type 2 diabetes mellitus with diabetic nephropathy, with long-term current use of insulin (HCC),Proliferativ e diabetic retinopathy of both eyes without macular edema associated with diabetes mellitus due to underlying condition ([facility]) Use as directed every 14 days. 6 Each 3 01/15/2024 Active Levothyroxine Sodium 175 MCG Oral Tablet (Levoxyl) Take 1 Tablet by mouth in the morning. on an empty stomach.. 30 Tablet 5 02/08/2024 Active Insulin Glargine 100 UNIT/ML Subcutaneous Solution Pen-injector (Lantus)Indication s:Type 2 diabetes mellitus with hemoglobin A1c goal of less than 7.0% (HCC),Type 2 diabetes mellitus with diabetic nephropathy, with long-term current use of insulin ([facility]) Inject 9 Units under the skin daily. 3 Each 04/08/2024 Active Midodrine HCl 2.5 MG Oral Tablet (Proamatine) Take 1 Tablet by mouth in the morning and 1 Tablet at noon and 1 Tablet before bedtime. 03/29/2024 Active Simbrinza 1-0.2 % Ophthalmic Suspension (Brinzolamide-Brim onidine)Indication s:Diabetic macular edema (HCC) INSTILL ONE DROP INTO RIGHT EYE TWICE DAILY 10 mL 12 04/10/2024 Active Brinzolamide-Brimo nidine (SIMBRINZA) 1-0.2 % SUSPIndications:Di abetic macular edema (HCC) INSTILL ONE DROP INTO RIGHT EYE TWICE DAILY 10 mL 12 01/05/2020 4 Discontinue d(Refill) documented as of this encounter (statuses as [...] mRNA, LNP-s, No Pre serve, 2-Dose Series (SunEdison) 08/25/2020,08/04/2020 COVID-19, MRNA-LNP, 23-24, P F, 30 MCG/0.3 mL, 12 YRS AND ABOVE, IM (PFIZER-Comirnaty) 04/06/2023 Hepatitis B, 20+ yrs 09/14/2015,04/22/2015,03/16 Pneumococcal Conjugate Vacc, 13 Valent (Prevnar) 02/13/2018 Pneumococcal Conjugate Vacci ne, 7 Valent 04/25/2007 Pneumococcal Polysaccharide PPV23 (Pneumovax) 11/20/2013 Seasonal Influenza Vac., MDV , IM, 0.5 mL (Fluzone) 04/06/2023,03/16/2015,04/29/2014,12/2011,03/22/2011,03/18/2010,03/31/20,04/25/2007,05/16/2006 Seasonal Influenza Virus Vac cine, Unspecified Formulation 04/06/2023 Seasonal Influenza, High Dos e, Trivalent, PF, IM (Fluzone HD) 03/19/2020,03/26/2019 Seasonal Influenza, MDCK, Tr ivalent, PF, (Flucelvax) 05/02/2013 Seasonal Influenza, PF, 6 M & above, IM , (FluLaval or Fluzone) 04/02/2018,05/02/2017 Seasonal Influenza, Quadriva lent, No Preserve, IM 03/22/2016 03/22/2017 Seasonal Influenza, Trivalen t, Adjuvanted, 65+ YRS, [...] on file documented as of this encounter Progress Notes * Obed Bone, DO - 04/10/2024 8:30 AM EDT [facility] [place] Nursing Notes: Barbara Mathew RN 04/10/24 0856 Signed Cynthia Pozo is a 79 year old year old female referred by Dr. Vasquez to evaluate for possible DR. Patient's name preference, 'Sanjana'. Patient currently states "have DR and on Dialysis have noticed definite decrease in ability to see close and when see far it is much ana" Have you ever had any major surgery of serious injury of or around the eyes- yes (CE and Glaucoma surgery) Are you diabetic? Yes. Do you check your blood sugars daily? YES. Fasting BS this mornin mg/dl. Last Hemoglobin A1C: Lab Results Component Value Date/Time HGBA1C 6.9 (H) 01/01/2024 10:07 AM HGBA1C 6.0 (H) 07/10/2023 11:44 AM HGBA1C 6.6 (H) 12/29/2022 11:59 AM HGBA1C 7.3 (H) 07/26/2022 11:31 AM HGBA1C 7.7 (H) 04/24/2022 09:11 AM HGBA1C 6.8 (H) 06/21/2020 10:20 AM HGBA1C 6.6 (H) 01/14/2020 10:22 AM HGBA1C 6.3 (H) 05/26/2019 02:15 PM FAMILY HISTORY: Family History Problem Relation Name Age of [...] DM Breast Cancer No significant family history SOCIAL HISTORY: Social History Tobacco Use Smoking status: Never Smokeless tobacco: Never Vaping Use Vaping status: Never Used Substance Use Topics Alcohol use: Yes Comment: glass of wine 1-2 times monthly; very rare beer 1-2 times yearly Drug use: No PMH: Past Medical History: Diagnosis Date Aortic valve defect Background diabetic retinopathy(362.01) OD CHF (congestive heart failure) ([facility]) Diabetic macular edema ([facility]) 08/04/2015 Diabetic macular edema(362.07) 08/20/2013 OS-started Lucentis 0.3mg injection, Dr. Bone DM type 2, not at goal ([facility]) dysplastic nevi Other Herpes zoster HTN, goal below 140/90 Ocular hypertension Other specified acquired hypothyroidism Statins contraindicated Type 2 diabetes mellitus with proliferative diabetic retinopathy with macular edema, bilateral ([facility]) Vitreous degeneration OS Patient Active Problem List Diagnosis Generalized OA DYSLIPIDEMIA, GOAL LDL BELOW 100 Stable proliferative diabetic retinopathy of both eyes associated with type 2 diabetes mellitus ([facility]) HTN, goal below 140/90 Proliferative diabetic retinopathy of both eyes without macular edema associated with diabetes mellitus due to underlying condition ([facility]) Diabetic macular edema ([facility]) Type 2 diabetes mellitus with diabetic nephropathy, with long-term current use of insulin ([facility]) Acquired hypothyroidism 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 ([facility]) Statins contraindicated Diabetic ulcer of left lower leg associated with type 2 diabetes mellitus, limited to breakdown of skin ([facility]) Mild intermittent asthma with exacerbation Type 2 diabetes mellitus with hemoglobin A1c goal of less than 8.0% ([facility]) History of transcatheter aortic valve replacement (TAVR) Anemia of chronic renal failure, stage 5 (HCC) Type 2 diabetes mellitus with stage 5 chronic kidney disease not on chronic dialysis, with long-term current use of insulin (HCC) Chronic kidney disease, stage 5 ([facility]) History obtained from: Patient Do you drive? no OCT and Fundus image(s) of both eyes acquired and filed/scanned into chart. Base Eye Exam Visual Acuity (Snellen - Linear) Right Left Dist sc 20/800 20/350 -1 Dist ph sc NI NI Tonometry (Tonopen, 8:55 AM) Right Left Pressure 13 8 Tonometry #2 (Tonopen, 8:55 AM) Right Left Pressure 8 Tonometry #3 (Tonopen, 8:55 AM) Right Left Pressure 10 Pupils Pupils Dark Light Shape React APD Right PERRL 3 3 Round Minimal None Left PERRL 3 3 Round Minimal None Visual Ivey (Counting fingers) Right Left Full Full Extraocular Movement Right Left Full, Ortho Full, Ortho Neuro/Psych Oriented x3: Yes Mood/Affect: Normal Dilation Both eyes: 0.5% Proparacaine @ 8:54 AM Dilation #2 Both eyes: 1.0% Mydriacyl, 2.5% Phenylephrine @ 8:54 AM Dilation #3 Both eyes: 1.0% Mydriacyl, 2.5% Phenylephrine @ 8:56 AM Dilation Comments Patient cautioned that effects of dilation may last 2-7 hours dependant upon individual reaction. It was discussed that driving while dilated is not recommended. EXTERNAL: The ocular adnexae are unremarkable. SLE: Lids/Lashes: wnl OU Conjunctiva/Sclera: quiet OU w/ trab superiorly w/ low bleb OU Cornea: 2+guttae OU Anterior Chamber: deep and quiet OU Iris: normal OU; no NVI OU Lens: PCIOL OU Dilated fundus exam OD: vitreous: +old VH inferiorly optic nerve: 0.4, no edema/pallor/NVD macula: +dr, +ERM, +PED rip, atrophy vessels: wnl periphery: PRP, no RT/RD Dilated fundus exam OS: vitreous: +PVD/vit debri optic nerve: 0.4, no edema/pallor/NVD macula: atrophy, , +ERM vessels: wnl periphery: PRP, no RT/RD OCT Interpretation: OD: +ERM, ped, drusen, atrophy OS: +ERM, retinal thickening, ped, drusen, atrophy A/P: 1. Proliferative Diabetic retinopathy OU +h/o chronic DME OU OD: -s/p FML/PRP (12/03) -s/p Avastin (last 05/13/13 for [facility], 09/12/11, 08/09/11, 06/28/11, 05/31/11, 04/26/11, 03/28/11)--poor response -s/p FML 04/16/12 to [facility] w/ exudates temporal to fovea -s/p Kenalog (11/12/12, 05/28/12, 01/24/12, 11/07/11)--great response -Lucentis OD (08/18/14, 07/14/14, 06/03/14, 05/05/14, 03/24/14, 02/10/14, 01/07/14, 12/03/13-PED w/ SRFluid, 11/11/13-stable, 10/17/13--improved--09/17/13-improved greatly) -h/o PED rip OD -s/p EYLEA (10-19-20, 07-27-20, 05-12-20, 03-02-20, 12-17-19, 08-05-19, 06-11-19, 02-05-19, 07-23-18, 04-10-18, 12-19-2017, 09-19-2017, 06-05-17, 03-21-17, 01-16-17, 11-08-16, 08-08-2016, 05/30/16, 03/21/16, 12/29/15, 10/26/15, 08/24/15, 07/06/15, 05/25/15, 03/23/15, 02/02/15, 12/30/14, 11/04/14, 09/29/14) - 5 weeks since last injection OS: -s/p grid 09/14/10 OS--IMPROVED after laser, but still diffuse in nature -s/p Avastin (last 08/22/11, 07/12/11, 05/15/11, 03/14/11, 11/16/10, 10/19/10)--poor response -s/p partial PRP/FML 06/04/12--good response -s/p IVKenalog OS 02/04/13, 09/17/12, 05/21/12, 03/21/12, 12/19/11, 10/11/11--great response -s/p Lucentis OS (09/08/14, 07/28/14, 06/29/14, 05/19/14, 04/07/14, 03/03/14, 01/20/14, 12/23/13, 11/25/13--improved at 1 week, 11/08/13-improved, 10/01/13 greatly improved, 08/20/13--greatly improved) -s/p Eylea (09-07-20, 06-15-20, 04-06-20, 01/22/20, 11-25-19, 09-09-19, 07-22-19, 05-28-19, 03-12-19, 12-31-18, 10-22-18, 08-20-18, 05-29-18, 04-02-18, 01-23-2018, 11-21-2017, 09-12-2017, 07-04-17, 04-24-17, 02-13-17, 12-05-, 09-12-16, 07/11/16, 05/02/16, 02/09/16, 11/24/15, 09/28/15, 08/04/15, 06/15/15, 04/20/15, 02/23/15, 01/19/15, 12/21/14, 10/20/14-great improvement) - 11 weeks since last injection -recommend HgbA1C <7, BP and lipid control. 2. 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 H/o Choroidal Effusion OS -IOP went down to 9 on simbrinza and developed serous choroidal effusions -no simbrinza OS 4. Glaucoma OU Current gtts: -Simbrinza OD BID -holding simbrinza OS due to choroidal effusions at IOP of 9 after restarting Simbrinza -pachy at [facility] 601 OD 593 OS (Dr. Posey) -S/p Phaco/trab w/ [facility] OS w/ Dr. Terrell 03/24/13 -S/p Phaco/trab w/ [facility] OD w/ Dr. Terrell 06/09/13 5. Posterior Vitreous Detachment OU -no RT/RD -advised to return to clinic if she should experience worsening or new floaters, flashes of light, a shadow in the periphery, or decrease in vision. 6. Fuchs Endothelial Dystrophy OU -stable -pt does not drive f/u w/ me 6 months, OCT OU; also requesting low vision eval--request w/ Dr. Grace Bone DO CC: Marielena Edwards, OD PCP: Amada Vasquez MD documented in this encounter Nursing Notes * Barbara Mathew RN - 04/10/2024 8:44 AM EDT Cynthia Pozo is a 79 year old year old female referred by Dr. Vasquez to evaluate for possible DR. Patient's name preference, 'Sanjana'. Patient currently states "have DR and on Dialysis have noticed definite decrease in ability to see close and when see far it is much ana" Have you ever had any major surgery of serious injury of or around the eyes- yes (CE and Glaucoma surgery) Are you diabetic? Yes. Do you check your blood sugars daily? YES. Fasting BS this mornin mg/dl. Last Hemoglobin A1C: Lab Results Component Value Date/Time HGBA1C 6.9 (H) 01/01/2024 10:07 AM HGBA1C 6.0 (H) 07/10/2023 11:44 AM HGBA1C 6.6 (H) 12/29/2022 11:59 AM HGBA1C 7.3 (H) 07/26/2022 11:31 AM HGBA1C 7.7 (H) 04/24/2022 09:11 AM HGBA1C 6.8 (H) 06/21/2020 10:20 AM HGBA1C 6.6 (H) 01/14/2020 10:22 AM HGBA1C 6.3 (H) 05/26/2019 02:15 PM FAMILY HISTORY: Family History Problem Relation Name Age of [...] DM Breast Cancer No significant family history SOCIAL HISTORY: Social History Tobacco Use Smoking status: Never Smokeless tobacco: Never Vaping Use Vaping status: Never Used Substance Use Topics Alcohol use: Yes Comment: glass of wine 1-2 times monthly; very rare beer 1-2 times yearly Drug use: No PMH: Past Medical History: Diagnosis Date Aortic valve defect Background diabetic retinopathy(362.01) OD CHF (congestive heart failure) (HCC) Diabetic macular edema (HCC) 08/04/2015 Diabetic macular edema(362.07) 08/20/2013 OS-started Lucentis 0.3mg injection, Dr. Bone DM type 2, not at goal (HCC) dysplastic nevi Other Herpes zoster HTN, goal below 140/90 Ocular hypertension Other specified acquired hypothyroidism Statins contraindicated Type 2 diabetes mellitus with proliferative diabetic retinopathy with macular edema, bilateral (HCC) Vitreous degeneration OS Patient Active Problem List Diagnosis Generalized OA [...] (HCC) Chronic kidney disease, stage 5 (HCC) History obtained from: Patient Do you drive? no OCT and Fundus image(s) of both eyes acquired and filed/scanned into chart. documented in this encounter Plan of Treatment Upcoming Encounters Date Type Department Care Team (Late st Contact Info) Description 04/15/2024 2:00 PM EDT Office Visit Otolaryngology [facility] [address] [place] [address] Isabel Mora MD [address] [place] [address] 06/12/2024 9:00 AM EST Office Visit General Internal Medicine [facility] [address] [place], [place] [address] Amada Vasquez MD [address] [place] [address] 10/09/2024 10:15 AM EDT Office Visit Ophthalmology, [facility] [address] [place] [address] Obed Bone, [address] [place] [address] Health Maintenance Due Date Last Done Comments Adult Wellness Visit 2011 Nephrology Referral 08/16/2013 08/16/2012 Diabetic Eye Exam 11/23/2021 11/23/2020, , 09/07/2020, Additional history exists COVID-19 Vaccine ( season) 2024 04/06/2023, 04/06/2023, 12/16/2021, Additional history exists Influenza Vaccine (FLU shot) (#1) 2024 04/06/2023, 04/06/2023, 04/20/2021, Additional history exists Depression Screening 06/28/2024 06/28/2023 HbA1c 07/03/2024 01/01/2024, 06/25, 12/29/2022, Additional history exists PTH 07/10/2024 07/10/2023, 12/07/2019, 11/11/2019, Additional history exists Phosphate 07/10/2024 07/10/2023, 06/0 07/2020, 10/12/2020, Additional history exists Diabetic Foot Exam 11/27/2024 11/28/2023, 1 08/22/2019, 08/20/2019, Additional history exists Hgb 12/31/2024 01/01/2024, 06/25, 11/24/2020, Additional history exists TSH 02/04/2025 02/05/2024, 07/0 [...] diabetes mellitus due to underlying condition (HCC) [E08.3593]- Primary Diabetic macular edema (HCC) Type II or unspecified type diabetes mellitus with ophthalmic manifestations, not stated as uncontrolled documented in this encounter Care Teams Spinning Frame Tender Relationship Specialty Start Date End Date Amada Vasquez MD [address] [place] [address] PCP - General Internal Medicine 01/14/24 documented as of this encounter
--- OUTSIDE RECORDS SUMMARY | 2024-05-07 20:34 | External Medical Summary ---
Author Name Unknown Address Unknown Organization [id number]:LABORATORY [facility] [place] - [address] [place] [address] Laboratory Report Ordering Provider Test Date Status ERIK DOUGLAS 04/10/2024 10:09:50 Final Observation Date Value Abnormality Reference (Units ) Status Erythrocyte sedimentation rate by Photometric method 04/10/2024 10:09:50 45 Above high normal <30 (mm/hour) Final Performing Location LAB[facility]ORY [facility] [place] - [address] [place] [address]
--- OUTSIDE RECORDS SUMMARY | 2024-05-07 20:34 | External Medical Summary ---
Author Name Unknown Address Unknown Organization [id number][facility] [address] [place], [place] [address] Laboratory Report Ordering Provider Test Date Status ERIK DOUGLAS 04/10/2024 10:09:50 Final Observation Date Value Abnormality Reference (Units ) Status SYNC LEUKOCYTES IN BLOOD BY AUTOMATED COUNT 04/10/2024 10:09:50 4.93 4.00-10.80 (K/uL) Final Segs 04/10/2024 10:09:50 63.8 40.0-75.0 (%) Final Lymphs % 04/10/2024 10:09:50 17.4 Below low normal 18.0-42.0 (%) Final Monos 04/10/2024 10:09:50 14.6 Above high normal 1.0-11.0 (%) Final Eosinophils 04/10/2024 10:09:50 3.4 0.0-6.0 (%) Final Basos 04/10/2024 10:09:50 0.8 0.0-2.0 (%) Final Absolute Segs 04/10/2024 10:09:50 3.14 1.80-7.70 (K/uL) Final Lymphs, absolute 04/10/2024 10:09:50 0.86 Below low normal 1.00-4.80 (K/ul) Final Monos, Abs 04/10/2024 10:09:50 0.72 0.00-1.10 (K/uL) Final Eos, Abs 04/10/2024 10:09:50 0.17 0.00-0.70 (K/uL) Final Basos, Abs 04/10/2024 10:09:50 0.04 0.00-0.20 (K/uL) Final Performing Location [facility] - [address] [place], [place] [address]
--- OUTSIDE RECORDS SUMMARY | 2024-05-07 20:34 | External Medical Summary | Summary of Care ---
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 Calamine 11/16/1999 Chondroitin 05/27/2010 Affect eyes Codeine Other (Please comment) 01/28/2019 nightmares Ipratropium [place] Hfa Cough 11/02/2015 Penicillins 11/16/1999 Statins Edema [...] chronic, stage IV (GFR 15-29 ml/min) ([facility]),Nephrotic syndrome 1 TABLET DAILY [...] diabetes mellitus due to underlying condition ([facility]),Type 2 diabetes mellitus with diabetic nephropathy, with long-term current use of insulin ([facility]) TEST BLOOD SUGAR TWICE DAILY. Dx: E11.21 200 Strip 3 06/21/2020 Active OneTouch UltraSoft LancetsIndications:T ype 2 diabetes mellitus with diabetic nephropathy, with long-term current use of insulin ([facility]),Proliferative diabetic retinopathy of both eyes without macular edema associated with diabetes mellitus due to underlying condition ([facility]) Use to test blood [...] 5 12/04/2023 Active FreeStyle Jose E 3 [place] DeviceIndications:Ty pe 2 diabetes mellitus with diabetic nephropathy, with long-term current use of insulin ([facility]),Proliferative diabetic retinopathy of both eyes without macular edema associated with diabetes mellitus due to underlying condition ([facility]) Use as directed. E11.9 1 Each 01/15/2024 Active FreeStyle Jose E 3 SensorIndications:Ty pe 2 diabetes mellitus with diabetic nephropathy, with long-term current use of insulin ([facility]),Proliferative diabetic retinopathy of both eyes without macular edema associated with diabetes mellitus due to underlying condition ([facility]) Use as directed every [...] mRNA, LNP-s, No Pre serve, 2-Dose Series (Nimbula) 08/25/2020,08/04/2020 COVID-19, MRNA-LNP, 23-24, P F, 30 [...] 04/15/2024 2:00 PM EDT Office Visit Otolaryngology [address] [place] [address] Isabel Mora MD [address] [place] [address] 06/12/2024 9:00 AM EST Office Visit General Internal Medicine [facility] [address] [place] [address] Amada Vasquez MD [address] [place] [address] 10/09/2024 10:15 AM EDT Office Visit Ophthalmology, [facility] [address] [place] [address] Obed Bone DO [address] [place] [address] Pending Results Name Type Priority Associated Diagnoses Date /Time TSH Lab Routine Acquired hypothyroidism 04/10/2024 10:09 AM EDT COMPREHENSIVE METABOLIC PANEL Lab Routine 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) 04/10/2024 10:09 AM EDT ERYTHROCYTE SEDIMENTATION RATE (ESR) Lab Routine 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) 04/10/2024 10:09 AM EDT CRP (INFLAMMATORY MARKER) Lab Routine 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) 04/10/2024 10:09 AM EDT Health Maintenance Due Date Last Done [...] Not on filedocumented as of this encounter Procedures Procedure Name Priority Date/Time Associated Diagnosis Comments DIFFERENTIAL, AUTOMATED Routine 04/10/2024 10:09 AM EDT 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) CBC Routine 04/10/2024 10:09 AM EDT 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) CBC Routine 04/10/2024 10:09 AM EDT 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) documented in this encounter Results * (ABNORMAL) DIFFERENTIAL, AUTOMATED (04/10/2024 10:09 AM EDT) WBC 4.93 4.00 - 10.80 K/uL 04/10/2024 10:25 AM EDT [facility] Neutrophils % 63.8 40.0 - 75.0 % 04/10/2024 10:25 AM EDT [facility] [place] [facility] Lymphocytes % 17.4(L) 18.0 - 42.0 % 04/10/2024 10:25 AM EDT [facility] [place] [facility] Monocytes % 14.6(H) 1.0 - 11.0 % 04/10/2024 10:25 AM EDT [facility] [place] [facility] Eosinophils % 3.4 0.0 - 6.0 % 04/10/2024 10:25 AM EDT [facility] [place] [facility] Basophils % 0.8 0.0 - 2.0 % 04/10/2024 10:25 AM EDT [facility] [place] [facility] Absolute Neutrophils 3.14 1.80 - 7.70 K/uL 04/10/2024 10:25 AM EDT [facility] [place] [facility] Absolute Lymphocytes 0.86(L) 1.00 - 4.80 K/ul 04/10/2024 10:25 AM EDT [facility] [place] [facility] [facility] Absolute Monocytes 0.72 0.00 - 1.10 K/uL 04/10/2024 10:25 AM EDT [facility] [place] [facility] Absolute Eosinophils 0.17 0.00 - 0.70 K/uL 04/10/2024 10:25 AM EDT [facility] [place] [facility] Absolute Basophils 0.04 0.00 - 0.20 K/uL 04/10/2024 10:25 AM EDT [facility] [place] [facility] Blood Venous blood specimen / Unknown Venipuncture / Unknown 04/10/2024 10:09 AM EDT 04/10/2024 10:09 AM EDT [facility] ORDER[facility] S [facility] [place] [facility] [address] [place] [address] * (ABNORMAL) CBC (04/10/2024 10:09 AM EDT) WBC 4.93 4.00 - 10.80 K/uL 04/10/2024 10:25 AM EDT [facility] RBC 3.07 3.85 - 5.15 M/uL 04/10/2024 10:25 AM EDT [facility] [place] [facility] HGB 10.1(L) 12.0 - 15.3 g/dL 04/10/2024 10:25 AM EDT [facility] [place] [facility] HCT 31.3(L) 36.0 - 45.2 % 04/10/2024 10:25 AM EDT [facility] MCV 102.0 81.5 - 97.5 fL 04/10/2024 10:25 AM EDT [facility] MCH 32.9 27.0 - 34.0 pg 04/10/2024 10:25 AM EDT [facility] [place] [facility] MCHC 32.3 32.0 - 36.0 g/dL 04/10/2024 10:25 AM EDT [facility] [place] [facility] RDW 15.3 11.5 - 15.5 % 04/10/2024 10:25 AM EDT [facility] PLT 205 140 - 400 K/uL 04/10/2024 10:25 AM EDT [facility] MPV 10.7 6.6 - 11.1 fL 04/10/2024 10:25 AM EDT [facility] [place] [facility] Blood Venous blood specimen / Unknown Venipuncture / Unknown 04/10/2024 10:09 AM EDT 04/10/2024 10:09 AM EDT [facility] ORDER[facility] S [facility] [address] [place] [address] documented in this encounter Visit Diagnoses Diagnosis Acquired hypothyroidism Unspecified hypothyroidism 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
--- OUTSIDE RECORDS SUMMARY | 2024-05-07 20:35 | External Medical Summary | Summary of Care ---
Author Name Unknown Organization [facility] Address [address] [place] [address] Phone [phone] Care Team Providers Care News Director Name Role Phone Amada Vasquez MD Primary Care Provider [phone] Reason for Visit * Reason Comments eRx-Medication Refill Encounter Details Date Type Department Care Team (Late st Contact Info) Description 03/12/2024 Refill Nephrology, [facility] [address] [place] [address] YanAntionette cavanaugh MD [address] [place] [address] Allergies Active Allergy Reactions Criticality Noted Date Comments Adhesive Tape 05/20/2019 Amlodipine 08/20/2019 Arformoterol Other (Please comment) 11/02/2015 Flare of asthma Budesonide Itching 03/04/2014 Pt reports itching in throat and ears after use. Calamine 11/16/1999 Chondroitin 05/27/2010 Affect eyes Codeine Other (Please comment) 01/28/2019 nightmares Ipratropium [place] Hfa Cough 11/02/2015 Penicillins 11/16/1999 Statins Edema Other 05/08/2018 Severe swelling throughout body Sulfa Antibiotics 11/16/1999 Thimerosal (Thiomersal) Hives 09/14/2010 Neomycin-Bacitracin Zn-Polymyx Rash 09/14/2010 documented as of this encounter (statuses as of 03/12/2024) Medications Medication Sig Dispensed Refills Start Date End Date Status GELATIN 600 MG PO CAPS one by mouth daily Active ONE-A-DAY 50 PLUS PO TABS 08/23/2012 Active BLOOD PRESSURE MONITOR/L CUFF MISCIndications:Prot einuria,HTN, goal below 130/80 for home bp log 1 Device 0 09/30/2012 Active ASPIRIN 81 MG PO TABSIndications:Kidn ey disease, chronic, stage IV (GFR 15-29 ml/min) ([facility]),Nephrotic syndrome 1 TABLET DAILY 30 Tab 5 [...] with diabetes mellitus due to underlying condition ([facility]),Type 2 diabetes mellitus with diabetic nephropathy, with long-term current use of insulin ([facility]) TEST BLOOD SUGAR TWICE DAILY. Dx: E11.21 200 Strip 3 06/21/2020 Active OneTouch UltraSoft LancetsIndications:T ype 2 diabetes mellitus with diabetic nephropathy, with long-term current use of insulin ([facility]),Proliferative diabetic retinopathy of both eyes without macular edema associated with diabetes mellitus due to underlying condition ([facility]) Use to test blood sugar twice daily 200 Each 3 06/21/2020 Active BD Pen Needle Short U/F 31G X 8 MM (Insulin Pen Needle)Indications:T ype 2 diabetes mellitus with hemoglobin A1c goal of less than 7.0% ([facility]) USE 4 TIMES DAILY DIRECTED 100 Each [...] 5 12/04/2023 Active FreeStyle Jose E 3 [place] DeviceIndications:Ty pe 2 diabetes mellitus with diabetic nephropathy, with long-term current use of insulin ([facility]),Proliferative diabetic retinopathy of both eyes without macular edema associated with diabetes mellitus due to underlying condition ([facility]) Use as directed. E11.9 1 Each 01/15/2024 [...] as of this encounter (statuses as of 03/12/2024) Active Problems Problem Noted Date Diagnosed Date [...] as of this encounter (statuses as of 03/12/2024) Resolved Problems Problem Noted Date Diagnosed Date [...] as of this encounter (statuses as of 03/12/2024) Immunizations Name Administration Dates Next Due COVID-19 mRNA, LNP-s, No Pre serve, 2-Dose Series (Phraxis) 08/25/2020,08/04/2020 COVID-19, MRNA-LNP, 23-24, P F, 30 [...] Influenza, Trivalen t, (IIV3), with Preserv, (Fluzone) 04/06/2023,03/16/2015,04/29/2014,11/0 12/2011,03/22/2011,03/18/2010,03/31/20,04/25/2007,05/16/2006 Seasonal Influenza, Trivalen t, Adjuvanted, 65+ YRS, [...] encounter Miscellaneous Notes * Telephone Encounter - Bernie Ewing LPN - 03/12/2024 10:24 AM EDTRefused Prescriptions: Disp Refills Midodrine HCl 2.5 MG Oral Tablet (Proamati*24 Tab*5 Sig: TAKE ONE TABLET BY MOUTH PREDIALYSIS AND ONE TABLET POSTDIALYSIS. TAKE ON DIALYSIS DAYS ONLYRefused By: Fortunato EWING for Refusal: Other (comment below) * Telephone Encounter - Bernie Ewing LPN - 03/12/2024 10:22 AM EDT This pt is dialysis Faxed to [facility] documented in this encounter Plan of Treatment Health Maintenance Due Date Last Done Comments [...] 11/11/2019, Additional history exists Phosphate 07/10/2024 07/10/2023, 06/07/2020, 10/12/2020, Additional history exists Diabetic Foot Exam [...] filedocumented as of this encounter Care Teams News Director Relationship Specialty Start Date End Date Amada Vasquez MD [address] [facility] [place] [address] PCP - General Internal Medicine 01/14/24 documented as of this encounter
--- OUTSIDE RECORDS SUMMARY | 2024-05-07 20:35 | External Medical Summary | Summary of Care ---
Author Name Unknown Organization [facility] Address [address] [place] [address] Phone [phone] Care Team Providers Care Boxcar Weigher Name Role Phone Amada Vasquez MD Primary Care Provider [phone] Reason for Referral * Evaluate & Treat [...] condition (HCC) Amada Vasquez MD [address] [place] [address] Referral ID Status Reason Start Date Expiration Date Visits Requested Visits Authorized [id number] Authorized Specialty Services Required 03/13/2024 999 999 [...] Telephone Access Center, [place] [address] [facility] *DO NOT REMOVE THIS DEPARTMENT* [place] [address] Services, Scheduling [address] [place] [address] Referral Allergies Active Allergy Reactions Criticality Noted Date Comments Adhesive Tape 05/20/2019 Amlodipine 08/20/2019 Arformoterol Other (Please comment) 11/02/2015 Flare of asthma Budesonide Itching 03/04/2014 Pt reports itching in throat and ears after use. Calamine 11/16/1999 Chondroitin 05/27/2010 Affect eyes Codeine Other (Please comment) 01/28/2019 nightmares Ipratropium [place] Hfa Cough 11/02/2015 Penicillins 11/16/1999 Statins Edema [...] disease, chronic, stage IV (GFR 15-29 ml/min) ([facility]),Nephrotic syndrome 1 TABLET DAILY 30 [...] with diabetes mellitus due to underlying condition ([facility]),Type 2 diabetes mellitus with diabetic nephropathy, with long-term current use of insulin ([facility]) TEST BLOOD SUGAR TWICE DAILY. Dx: E11.21 200 Strip 3 06/21/2020 Active OneTouch UltraSoft LancetsIndications:T ype 2 diabetes mellitus with diabetic nephropathy, with long-term current use of insulin ([facility]),Proliferative diabetic retinopathy of both eyes without macular edema associated with diabetes mellitus due to underlying condition ([facility]) Use to test blood sugar twice daily 200 Each 3 06/21/2020 Active BD Pen Needle Short U/F 31G X 8 MM (Insulin Pen Needle)Indications:T ype 2 diabetes mellitus with hemoglobin A1c goal of less than 7.0% ([facility]) USE 4 TIMES DAILY DIRECTED [...] 5 12/04/2023 Active FreeStyle Jose E 3 [place] DeviceIndications:Ty pe 2 diabetes mellitus with diabetic [...] mRNA, LNP-s, No Pre serve, 2-Dose Series (Hybrigenics) 08/25/2020,08/04/2020 COVID-19, MRNA-LNP, 23-24, P F, 30 [...] encounter Miscellaneous Notes * Telephone Encounter - Phoebe Hill RN - 03/13/2024 9:24 AM EDT Referral [...] referral need to be placed into the [employer] system? Name of preferred specialist: Dr. Arora Type of specialist: Opthalmology Location of specialist: [facility] Specialist's Phone #: n/a Specialist's Fax #: n/a Reason for visit: Eye Exam Date of visit: Not yet scheduled documented in this encounter Plan of Treatment Scheduled Referrals Name Type Priority Associated Diagnoses [...] (HCC) documented in this encounter Care Teams Boxcar Weigher Relationship Specialty Start Date End Date Amada Vasquez MD [address] [place] [id number] PCP - General Internal Medicine 01/14/24 documented as of this encounter
[2024-05-07] MEDS: DOXYCYCLINE HYCLATE 100 MG CAP PO SCH (21:57)
[2024-05-07] MEDS: CALCIUM CARBONATE 500 MG CHEWABLE TAB PO PRN (23:08)
[2024-05-08] MEDS: CALCIUM CARBONATE 500 MG CHEWABLE TAB PO STA (02:37)
[2024-05-08 07:41] LABS: Basophils # (auto) 0.06 K/uL (0.00-0.20); Basophils % (auto) 1.5 %; Eosinophils # (auto) 0.19 K/uL (0.00-0.50); Eosinophils % (auto) 4.9 %; Hematocrit (blood only) 29.4 % (37.0-47.0); Hemoglobin 9.6 g/dl (12.0-16.0); Immature Granulocytes # (auto) 0.01 K/uL (0.01-0.20); Immature Granulocytes % (auto) 0.3 %; Lymphocytes # (auto) 0.62 K/uL (1.20-3.40); Lymphocytes % (auto) 15.9 %; Mean Corpuscular Hemoglobin 31.7 pg (25.0-34.0); Mean Corpuscular Hgb Conc 32.7 g/dL (32.0-36.0); Mean Platelet Volume 9.9 fL (9.4-12.4); Monocytes % (auto) 15.3 %; Neutrophils # (auto) 2.43 K/uL (1.40-6.50); Neutrophils % (auto) 62.1 %; Platelet Count 185 K/uL (130-400); RDW Coefficient of Variation 16.4 % (11.5-14.5); RDW Standard Deviation 58.5 fL (36.4-46.3); Red Blood Count 3.03 M/uL (4.20-5.40); White Blood Count 3.91 K/ul (4.8-10.8)
[2024-05-08 07:51] VITALS: RESP 17; O2SAT 95
[2024-05-08] MEDS: CHOLECALCIFEROL 25 MCG (1000 UNITS) TAB PO SCH (08:14)
[2024-05-08 08:21] LABS: Albumin Globulin Ratio 1.1 (0.9-2); Albumin Level 3.2 gm/dl (3.4-5.0); BUN Creatinine Ratio 6.3 (10-20); Bilirubin,Total 0.7 mg/dl (0.2-1.0); Calcium 9.2 mg/dl (8.6-10.3); Creatinine Clr Calc Pharmacy 6.2 ml/min; Globulin 2.9 gm/dl (2.5-4.0); Total Protein 6.1 gm/dl (6.0-8.3)
[2024-05-08] MEDS: MIDODRINE HCL 2.5 MG TAB PO STA (09:19)
[2024-05-08] MEDS: POLYETHYLENE (MIRALAX) 17 GM PACK PO SCH (09:24)
--- NOTE | 2024-05-08 11:10 | Nephrology Consultation ---
Date of Consultation May 08, 2024 Assessment & Plan (1) ESRD (end stage renal disease) on dialysis: ESRD on HD--MWF. has Vol overload because of Extreme issues with Intra dialysis Hypotension. This is making Dialysis very challenging. She gets very lightheaded and dizzy with Low BP. Cannot usually finish dialysis and shortens around 3 hr alexsandra. na is slightly low and BUN and creat are high as expected for ESRD patient pre dialysis labs. Dialysis today--aiming for 4 hrs and 4 kilo but doubt will be able to achieve that. She can be discharged after dialysis today--further dialysis tomorrow as outpt. hgb is slightly low and will give GILDARDO. BP and AVF is fine so far (2) CHF exacerbation: She has CHF on CXR and exam. Dialysis Complicated by Dialysis related hypotension. She gets very lightheaded and dizzy with Low BP. Cannot usually finish dialysis and shortens around 3 hr alexsandra. making situation difficult. (3) Constipation: Presenting Complaint. Now better after Rx. (4) Hypotension of hemodialysis: Dialysis Complicated by Dialysis related hypotension. She gets very lightheaded and diszzy with Low BP. Cannot usually finish dialysis and shortens around 3 hr alexsandra. making situation difficult. Will give midodrine and also 25% albumin with dialysis. History of Present Illness Reason for Consultation: ESRD on Dialysis admitted with Severe Constipation and Vol Overload. Attending Physician: Roberto Carlos Godfrey DO History of Present Illness 79/F with ESRD on HD--MWF at [facility] with Dr Yan. She has history of tracheal stenosis, asthma, DM2, HLD, venous stasis and chronic wounds b/l with MRSA, TAVR who presented to the ED on 05/07/2024 with concern of Severe constipation. She has been unable to move her bowels for almost 1 week. She reports some gen abd pain, some intermittent nausea but denies any vomiting. Patient denies any increased shortness of breath/chest pain/fever/chills. I was asked by her picker to admit her given her issues with vol overload, BP dropping with dialysis and Weight being much higher than EDW. She did not get dialysis yesterday because of time Constraint/RN issues. Chest x-ray showed cardiomegaly with pulmonary congestion KUB was negative for bowel obstruction. Constipation now treated and she feels much better. getting dialysis as I speak. AVF fine. BP so far is good. ROS--see HPI. 12 Systems reviewed and negative Physical Exam Constitutional: WD/WN, vitals as above Eyes: PERRL, conjunctivae normal, anicteric sclerae ENMT: external ear and nose normal, oropharynx normal Neck: trachea midline, no thyromegaly Respiratory: normal respiratory effort, lungs clear to auscultation (Bilateral wheezing, patient reports at baseline) Cardiovascular: RRR, no murmur, no edema Gastrointestinal (Abdomen): normal bowel sounds, soft, nontender, no hepatosp lenomegaly (Reports bloating, no tenderness on exam) Musculoskeletal: no cyanosis or clubbing, extremities motor strength 5/5 Skin: no rashes, warm and dry Neurologic: PERRL, EOMI, accommodation nl, no face palsy, no dysarthria Psychiatric: A+Ox3, euthymic affect Lymphatic: no cervical or axillary lymphadenopathy Allergies Allergy/AdvReac Type Severity Reaction Status Date / Time codeine Allergy Intermediate Hallucinati Verified 04/22/24 11:41 ng silver Allergy Intermediate Verified 04/22/24 11:41 amlodipine Allergy Mild "extreme Verified 04/22/24 11:41 water retention" arformoterol [From Brovana] Allergy Mild asthma Verified 04/22/24 11:41 flare up NSAIDS (Non-Steroidal Allergy Mild "felt like Verified 04/22/24 11:41 Anti-Inflamma I was swallowing a burning coal" bacitracin Allergy Unknown RASH Verified 04/22/24 11:41 budesonide Allergy Unknown ITCHING IN Verified 04/22/24 11:41 THROAT AND EARS AFTER USE calamine Allergy Unknown RASH Verified 04/22/24 11:41 neomycin Allergy Unknown RASH Verified 04/22/24 11:41 Penicillins Allergy Unknown HIVES/FLUSH Verified 04/22/24 11:41 ING polymyxin B Allergy Unknown RASH Verified 04/22/24 11:41 shrimp Allergy Unknown "JUST Verified 04/22/24 11:41 SHRIMP" - HIVES Sulfa (Sulfonamide Allergy Unknown UNKNOWN Verified 04/22/24 11:41 Antibiotics) REACTION - "HAD ON CHART SINCE INFANT." chondroitin sulfate A AdvReac Unknown AFFECTS Verified 04/22/24 11:41 EYES thimerosal AdvReac Unknown TACHYCARDIA Verified 04/22/24 11:41 Home Medications Medication Instructions Recorded Confirmed Type albuterol sulfate 90 mcg/actuation 1 puff inhalation Q4 PRN Shortness 04/17/18 05/07/24 History aerosol inhaler (ProAir HFA) Of Breath aspirin 81 mg tablet,delayed 81 mg PO QPM 04/17/18 05/07/24 History release (Shannan Low Dose Aspirin) bisacodyl 5 mg tablet,delayed 5 mg PO QPM 04/17/18 05/07/24 History release (Dulcolax (bisacodyl)) brinzolamide 1 %-brimonidine 0.2 % 1 drp ophthalmic (eye) BID 04/17/18 05/07/24 History eye drops,suspension (Simbrinza) calcium carbonate (Tums) 300 mg PO DAILY PRN Acid Reflux 04/17/18 05/07/24 History cholecalciferol (vitamin D3) 25 1,000 unit PO 5XWK 04/17/18 05/07/24 History mcg (1,000 unit) capsule famotidine 10 mg tablet 10 mg PO BID 04/17/18 05/07/24 History gelatin 600 mg capsule 1 tab PO BID 04/17/18 05/07/24 History levothyroxine 100 mcg tablet 150 mcg PO QAM 04/17/18 01/01/24 History dzlrweqygduv-rtndfgyf-fmrycho-folic 1 tab PO QPM 04/17/18 05/07/24 History acid 400 mcg-vit K1 20 mcg tablet (One-A-Day Women's 50 Plus) polyethylene glycol 3350 17 1 dose PO DAILY PRN Constipation 04/17/18 05/07/24 History gram/dose oral powder (Miralax) psyllium husk 0.52 gram capsule 1 cap PO BID 04/17/18 05/07/24 History (Metamucil) insulin aspart U-100 100 unit/mL 1 sliding scale dose subcut 06/05/23 05/07/24 History subcutaneous cartridge (Novolog USEASDIRECTD PenFill U-100 Insulin aspart) insulin glargine 100 unit/mL (3 8 unit subcut QPM 06/05/23 05/07/24 History mL) subcutaneous pen (Lantus Solostar U-100 Insulin) loratadine 10 mg tablet (Claritin) 5 mg PO BID 06/05/23 05/07/24 History kbvuyxlh-jsf-YZ 200 mcg-vit K 15 2 tab PO DAILY 06/05/23 05/07/24 History mcg-lycope 150 rdp-wendvg-gxog tablet (Ocuvite Eye Plus Multi) sevelamer HCl 800 mg tablet 800 mg PO BID 06/05/23 05/07/24 History (Renagel) ammonium lactate 12 % topical cream 1 applic topical DAILY 30 days 06/12/23 05/07/24 Rx #385 grams fluticasone 100 mcg-salmeterol 50 1 inh inhalation BID 12/13/23 05/07/24 History mcg/dose blistr powdr for inhalation (Advair Diskus) Patient History Medical History Artificial cardiac pacemaker Heart attack History of anesthesia reaction Received Sodium Pentothal during wisdom tooth removal...pt states she woke up screaming. History of anesthesia reaction During knee sx 40yrs ago, per pt "they almost lost me", pt unsure what anesthesia was used Osteoarthritis AV fistula L arm; not used History of esophageal dilatation GERD (gastroesophageal reflux disease) Hypothyroidism Diabetes mellitus, type 2 Anemia Diabetic retinopathy Glaucoma Claustrophobia Hypertension Cardiac murmur Aortic stenosis Asthma inhaler prn Surgical History Aortic valve replaced Status post biopsy of kidney benign History of colonoscopy History of esophagogastroduodenoscopy (EGD) History of tooth extraction wisdom teeth Status post medial meniscus repair right History of tonsillectomy and adenoidectomy History of bilateral cataract extraction Status post laser trabeculoplasty of eye bilt Family History Mother Family history of esophageal cancer Social History Smoking Status: Never smoker Second Hand Exposure: Yes (father/mother smoked); Do You Dip or Chew Tobacco: No; Hx Alcohol Use: Yes Alcohol type: wine Alcohol Intake Frequency Comment: OCCASIONALLY, "NOT VERY OFTEN" Hx Substance Use: No Preferred Language: Greenlandic Communication Ability: Effective Visual Impairment: Partially Limited Hearing Ability: Normal Electro Mechanical Solar Technician Required: No Beliefs That Will Affect Care: None marital status: Single Current Living Situation: Family Current Living Situation Comment: Independent living current occupational status: retired Other Information That Helps Us Care for You: No other: Leigh King PCP, Dr. Cade- Podiatrist Orthopedic. Dr. Bone Feels Safe at Home: Yes Safety Concerns: Feels Safe At This Time Diet: diabetic and low salt during the past year weight has: remained stable Assistive Devices: Walker Results & Data Vital Signs (Past 12 Hours) Vital Signs Temp Pulse Pulse Pulse Resp BP Pulse Ox 05/08/24 09:11 36.5 C 86 05/08/24 08:00 05/08/24 07:50 36.4 C L 72 17 128/77 95 05/08/24 03:25 36.4 C L 76 20 102/63 96 05/07/24 23:44 36.5 C 72 18 116/67 95 O2 Del Method 05/08/24 09:11 05/08/24 08:00 Room Air 05/08/24 07:50 Room Air 05/08/24 03:25 Room Air 05/07/24 23:44 Room Air Laboratory Results CBC, renal panel reviewed Diagnostic Findings CXr--CHF (3) Constipation Constipation type: unspecified constipation type Qualified Code(s): K59.00 - Constipation, unspecified
--- NOTE | 2024-05-08 11:23 | Dialysis Progress Note ---
Date of Service May 08, 2024 Assessment & Plan Admission and Anticipated Discharge Date Admission Date: May 07, 2024 Subjective Assessment & Plan (1) ESRD (end stage renal disease) on dialysis: ESRD on HD--MWF. has Vol overload because of Extreme issues with Intra dialysis Hypotension. This is making Dialysis very challenging. She gets very lightheaded and dizzy with Low BP. Cannot usually finish dialysis and shortens around 3 hr alexsandra. na is slightly low and BUN and creat are high as expected for ESRD patient pre dialysis labs. Dialysis today--aiming for 4 hrs and 4 kilo but doubt will be able to achieve that. She can be discharged after dialysis today--further dialysis tomorrow as outpt. hgb is slightly low and will give GILDARDO. BP and AVF is fine so far (2) CHF exacerbation: She has CHF on CXR and exam. Dialysis Complicated by Dialysis related hypotension. She gets very lightheaded and dizzy with Low BP. Cannot usually finish dialysis and shortens around 3 hr alexsandra. making situation difficult. (3) Constipation: Presenting Complaint. Now better after Rx. (4) Hypotension of hemodialysis: Dialysis Complicated by Dialysis related hypotension. She gets very lightheaded and diszzy with Low BP. Cannot usually finish dialysis and shortens around 3 hr alexsandra. making situation difficult. Will give midodrine and also 25% albumin with dialysis. S--seen during dialysis . So far BP and AVF is fine. No complaint but dialysis just started. Physical Exam Constitutional: WD/WN, vitals as above Eyes: PERRL, conjunctivae normal, anicteric sclerae ENMT: external ear and nose normal, oropharynx normal Neck: trachea midline, no thyromegaly Respiratory: normal respiratory effort, lungs clear to auscultation (Bilateral wheezing, patient reports at baseline) Cardiovascular: RRR, no murmur, no edema Gastrointestinal (Abdomen): normal bowel sounds, soft, nontender, no hepatosplenomegaly (Reports bloating, no tenderness on exam) Musculoskeletal: no cyanosis or clubbing, extremities motor strength 5/5 Skin: no rashes, warm and dry Neurologic: PERRL, EOMI, accommodation nl, no face palsy, no dysarthria Psychiatric: A+Ox3, euthymic affect Lymphatic: no cervical or axillary lymphadenopathy Results & Data Vital Signs (Past 12 Hours) Vital Signs Temp Pulse Pulse Pulse Pulse Resp BP 11/14/24 11:00 81 134/64 05/08/24 10:30 76 131/61 05/08/24 10:00 74 142/56 H 05/08/24 09:30 72 135/60 05/08/24 09:11 36.5 C 86 05/08/24 08:00 05/08/24 07:50 36.4 C L 72 17 05/08/24 03:25 36.4 C L 76 20 05/07/24 23:44 36.5 C 72 18 BP Pulse Ox O2 Del Method 05/08/24 11:00 05/08/24 10:30 05/08/24 10:00 05/08/24 09:30 05/08/24 09:11 05/08/24 08:00 Room Air 05/08/24 07:50 128/77 95 Room Air 05/08/24 03:25 102/63 96 Room Air 05/07/24 23:44 116/67 95 Room Air
--- NOTE | 2024-05-08 11:56 | Discharge Summary ---
Discharge Summary Date of Service May 08, 2024 Principal Dx & Hospital Course #1 = Principal Diagnosis (1) Constipation: (2) MRSA (methicillin resistant staph aureus) culture positive: (3) Hemodialysis patient: (4) Chronic kidney disease (CKD), stage IV (severe): (5) Diabetes mellitus, type 2: (6) Hypertension: (7) Cardiac murmur: (8) Aortic stenosis: (9) Aortic valve replaced: Plan Assessment and plan: Constipation: KUB unremarkable for any obstruction, continue MiraLAX Add Dulcolax suppository and mineral oil enema Chronic bilateral lower extremity venous stasis wounds Hx MRSA Follows with wound care outpatient, currently on Doxy for 14 days with 8 days left Plan for completion on 05/15/2024, continue this, consult wound care while inpatient Hx DM2: Takes 8 units long-acting insulin at bedtime, sugar low at 68 today SSI/4 times daily BGM, CTM, can add long-acting as needed Hx ESRD on dialysis: Nephrology consulted, dialysis days M// Tracheal stenosis No hypoxia noted, nebs as needed, patient reports breathing at baseline Full code DVT prophylaxis: Heparin subcu Notes For Next Care Provider Medication Changes From Visit START SENOKOT S TWICE A DAY FOR CONSTIPATION Admission HPI Per Admitting Provider The patient is a 79-year-old female with a past medical history of tracheal stenosis, mild intermittent asthma, DM2, HLD, CKD stage V on ESRD, TAVR who presents to the ED on 05/07/2024 with concern of constipation. Patient reports that she has been unable to move her bowels over the past few days. She reports taking MiraLAX as needed at home and this has not been helping her. She reports some intermittent nausea but denies any vomiting. She is not tender on exam. Patient denies any increased shortness of breath/chest pain/fever/chills. Patient does report some weight gain which she talk to nephrology about. Reports compliance with her dialysis sessions. On arrival to the ED, Labs are remarkable for WBC 4, hemoglobin 10.4, chloride 90, bicarb 34, anion gap 12, BUN 40, creatinine 6.28, glucose 159, COVID was negative Chest x-ray showed cardiomegaly with pulmonary congestion KUB was negative for bowel obstruction The patient will be admitted for inpatient dialysis with recent weight gain and will be further treated for constipation. Discharge Exam General- adult, female seen in the Dialysis Unit, She feels much better. She had several formed BMs . Ok for d/c post HD per nephrology Head- atraumatic Eyes- PERRL, EOMI, anicteric ENT- oropharynx clear Neck- supple, no JVD, no adenopathy, no thyromegaly; carotids +2/2, no bruits appreciated Lungs- clear to auscultation and percussion Heart- regular rhythm; no murmur, no gallop, no rub appreciated Abdomen- normal bowel sounds, soft, nontender, no masses or hepatosplenomegaly Extremities- no pretibial edema, no calf tenderness; peripheral pulses intact Neuro- alert, oriented x 3; PERRL, EOMI; no facial palsy; no dysarthria; motor 5/5 bilaterally; no cogwheel rigidity; patellar DTRs +2/2; toes downgoing bilaterally; finger to nose intact bilaterally Skin- warm & dry Updated Medication List Medication Instructions Recorded Confirmed Type albuterol sulfate 90 mcg/actuation 1 puff inhalation Q4 PRN Shortness 04/17/18 05/07/24 History aerosol inhaler (ProAir HFA) Of Breath aspirin 81 mg tablet,delayed 81 mg PO QPM 04/17/18 05/07/24 History release (Shannan Low Dose Aspirin) bisacodyl 5 mg tablet,delayed 5 mg PO QPM 04/17/18 05/07/24 History release (Dulcolax (bisacodyl)) brinzolamide 1 %-brimonidine 0.2 % 1 drp ophthalmic (eye) BID 04/17/18 05/07/24 History eye drops,suspension (Simbrinza) calcium carbonate (Tums) 300 mg PO DAILY PRN Acid Reflux 04/17/18 05/07/24 History cholecalciferol (vitamin D3) 25 1,000 unit PO 5XWK 04/17/18 05/07/24 History mcg (1,000 unit) capsule famotidine 10 mg tablet 10 mg PO BID 04/17/18 05/07/24 History gelatin 600 mg capsule 1 tab PO BID 04/17/18 05/07/24 History levothyroxine 100 mcg tablet 150 mcg PO QAM 04/17/18 01/01/24 History klzroddpsgkw-qhtojvix-cmnvotg-folic 1 tab PO QPM 04/17/18 05/07/24 History acid 400 mcg-vit K1 20 mcg tablet (One-A-Day Women's 50 Plus) polyethylene glycol 3350 17 1 dose PO DAILY PRN Constipation 04/17/18 05/07/24 History gram/dose oral powder (Miralax) psyllium husk 0.52 gram capsule 1 cap PO BID 04/17/18 05/07/24 History (Metamucil) insulin aspart U-100 100 unit/mL 1 sliding scale dose subcut 06/05/23 05/07/24 History subcutaneous cartridge (Novolog USEASDIRECTD PenFill U-100 Insulin aspart) insulin glargine 100 unit/mL (3 8 unit subcut QPM 06/05/23 05/07/24 History mL) subcutaneous pen (Lantus Solostar U-100 Insulin) loratadine 10 mg tablet (Claritin) 5 mg PO BID 06/05/23 05/07/24 History yfbifjaf-noz-MF 200 mcg-vit K 15 2 tab PO DAILY 06/05/23 05/07/24 History mcg-lycope 150 ywh-aqtbkd-skbh tablet (Ocuvite Eye Plus Multi) sevelamer HCl 800 mg tablet 800 mg PO BID 06/05/23 05/07/24 History (Renagel) ammonium lactate 12 % topical cream 1 applic topical DAILY 30 days 06/12/23 05/07/24 Rx #385 grams fluticasone 100 mcg-salmeterol 50 1 inh inhalation BID 12/13/23 05/07/24 History mcg/dose blistr powdr for inhalation (Advair Diskus) sennosides 8.6 mg-docusate sodium 1 tab-cap PO BID #30 tabs 05/08/24 Rx 50 mg tablet (Senokot-S) Hospital Stay Data Consultations 05/07/24 12:25 ED Decision to Admit Stat 05/07/24 16:49 Consult Nephrology Routine 05/07/24 18:00 Consult Nephrology Routine Pending Results Patient Have Any Pending Studies at Discharge: No Discharge Instructions Given to Patient (Per Discharging Provider) F/U with regular dialysis sessions Total Time Total Time Spent Total Time Spent (In Minutes): 44 minutes spent in discharge planning
[2024-05-08] MEDS: ALBUMIN 25% 12.5 GM/50 ML VIAL IV ONE (13:13)
[2024-05-08 13:21] VITALS: BP 139/49; PULSE 76; TEMP 97.9
--- NOTE | 2024-05-08 17:06 | Electrocardiogram Report ---
Test Reason : Blood Pressure : */* mmHG Vent. Rate : 75 BPM Atrial Rate : 73 BPM P-R Int : * ms QRS Dur : 186 ms QT Int : 510 ms P-R-T Axes : * -25 116 degrees QTcB Int : 569 ms Ventricular-paced rhythm with frequent Premature ventricular complexes Abnormal ECG No previous ECGs available Confirmed by Royal Gifford [id number] on 05/08/2024 5:06:24 PM Referred By: REFERRED SELF Confirmed By: Royal Gifford
== END 2024-05-08 13:28 | disposition home or self-care (01) ==
LOC: ED 10:20 → INTOOBSV 12:37 → SUATTDRO 12:37 → EDINP 12:37 → 2W 16:30

== ENCOUNTER 2024-09-03 12:49 | Inpatient (IN) ==
--- NOTE | 2024-09-03 13:14 | Emergency Department Note ---
Impression & Plan Anemia, Venous stasis ulcers of both lower extremities, ESRD (end stage renal disease) on dialysis, Subglottic stenosis, Elevated troponin ED Provider Note NAME: CASTILLO ROGERS AGE: 79 SEX: F : 1945 ARRIVES VIA: Ambulance INFORMANT: Patient ED PROVIDER(S): Neymar Conway MD CHIEF COMPLAINT: low hemoglobin, referred. PLAN: Disposition: Admit MEDICAL DECISION MAKING: The patient is a pleasant 79-year-old woman with a complicated past medical history of end-stage renal disease on hemodialysis, MWF, diastolic heart failure, MRSA, chronic lower extremity wounds, chronic subglottic stenosis who presents to the emergency department via EMS referred by her dialysis center for low hemoglobin of 7.3 which per report is decreased from recent baseline of 10. The patient denies any bleeding. She denies any new symptoms and reports chronic shortness of breath and fatigue is unchanged. She denies chest pain, nausea, vomiting or diarrhea. She reports she urinates minimally and not every day. Patient reports she does take midodrine and they recently increased her dosing for 10 mg before dialysis and 5 mg after dialysis. She reports she has not taken her after-dialysis dose yet. Otherwise she takes 5 mg on non-dialysis days. On evaluation the patient is chronically ill-appearing but in no acute distress, afebrile with blood pressure 90s/50s, mentating normally and vital signs otherwise stable. She has no focal neurologic deficits. LUE AV fistula with palpable thrill. She exhibits chronic inspiratory stridor without distress and able to speak full sentences without difficulty. EKG demonstrates ventricular paced rhythm, chest x-ray with stable cardiomegaly which is suggestive of pericardial effusion the setting of end-stage renal disease and otherwise without acute cardiopulmonary process. WBC 3k without neutrophilia or left shift. H/H 7.3/22.5 with MCV of 91. Platelets 12K without recent for comparison. INR is 1.4 chemistry without metabolic acidosis. Creatinine 2.4 in the setting of known end-stage renal disease. Potassium 3.0. LFTs without significant amount. Initial high sensitivity troponin 26.5, nonspecific. Patient did consent for blood transfusion. 2 units of PRBCs were ordered. Case was discussed with Nata Vega rommel PAC, with Dr. Pena, [facility] hospitalist who will evaluate the patient for admission. Further management per admitting team. Triage Nursing notes reviewed and agree them. Prior/external medical records reviewed Vital Signs: reviewed Differential diagnosis: Infection, dehydration, metabolic abnormality, hypo/hyperglycemia, electrolyte disturbance, anemia, hypoxia, cardiac sources, intracerebral event, toxicologic, neurologic, as well as other pathologies. ER treatment provided: See below. Diagnostics interpreted by me: ECG: Ventricular pace rhythm, 74 bpm, no ectopy, no overt acute ischemia. Cardiac Monitoring: An order for continuous cardiac monitoring was placed and demonstrated Ventricular pace rhythm, 74 bpm, no ectopy Laboratory studies: See below Imaging studies: See below Consultation(s): Nata Vega, [facility], [facility] HPI: The patient is a pleasant 79-year-old woman with a complicated past medical history of end-stage renal disease on hemodialysis, MWF, diastolic heart failure, MRSA, chronic lower extremity wounds, chronic subglottic stenosis who presents to the emergency department via EMS referred by her dialysis center for low hemoglobin of 7.3 which per report is decreased from recent baseline of 10. The patient denies any bleeding. She denies any new symptoms and reports chronic shortness of breath and fatigue is unchanged. She denies chest pain, nausea, vomiting or diarrhea. She reports she urinates minimally and not every day. Patient reports she does take midodrine and they recently increased her dosing for 10 mg before dialysis and 5 mg after dialysis. She reports she has not taken her after-dialysis dose yet. Otherwise she takes 5 mg on non-dialysis days. ROS: See above HPI for pertinent positives & negatives. A total of 10 systems reviewed and were otherwise negative. VITALS:See Below PHYSICAL EXAMINATION: GENERAL: Awake, alert, chronically ill-appearing, in no distress HENT: Normocephalic, atraumatic. Oropharynx unremarkable. EYES: Normal conjunctiva. Sclera non-icteric. NECK: Supple. No nuchal rigidity. FROM. No JVD. RESPIRATORY: Clear to auscultation. CARDIAC: Regular rate, normal rhythm. Extremities warm and well perfused. Pulses equal. LUE AV fistula with palpable bruit. ABDOMEN: Soft, non-distended. No tenderness to palpation. No rebound or guarding. MUSCULOSKELETAL: Chest examination reveals no tenderness. The back is symmetrical on inspection without obvious abnormality. There is no CVA tenderness to palpation. No joint edema. LOWER EXTREMITIES: Calves are equal size bilaterally. Chronic bilateral posterior calf ulcers without surrounding erythema or warmth. No crepitus. NEURO: No focal sensory or motor deficits noted. SKIN: Mild pallor. No rash or jaundice noted. ED COURSE: Critical Care: I have personally spent greater than 35 minutes of critical care time in the direct management of this patient. This includes bedside care, interpretation of diagnostic studies, and testing, discussion with consultants, patient, and family members, and other required patient management activities. This 35 minutes is in excess of all separately billable procedures. Neymar Conway MD Past Med/Surg History Problem List (Updated 09/03/24 @ 18:41 by Jc Santizo MD) Cardiac arrest Acute hypoxic respiratory failure Shock Subglottic stenosis (Acute) ESRD (end stage renal disease) on dialysis (Acute) Anemia (Acute) Prolonged QT interval Elevated troponin (Acute) Pericardial effusion ESRD on hemodialysis Chronic diastolic CHF (congestive heart failure) Subglottic stenosis Hypotension (Acute) Hypotension of hemodialysis CHF exacerbation ESRD (end stage renal disease) on dialysis Constipation (Acute) MRSA (methicillin resistant staph aureus) culture positive Chronic pain of both lower extremities Hemodialysis patient Chronic kidney disease (CKD), stage IV (severe) (Acute) Abnormal ankle brachial index (Acute) Venous stasis ulcer (Acute) Traumatic wound (Acute) Venous stasis ulcers of both lower extremities (Acute) Contusion of left knee (Acute) Traumatic open wound of left lower leg (Acute) Venous stasis ulcer of left lower leg with edema of left lower leg (Acute) Encounter for pre-operative examination Medical History Artificial cardiac pacemaker Heart attack History of anesthesia reaction Received Sodium Pentothal during wisdom tooth removal...pt states she woke up screaming. History of anesthesia reaction During knee sx 40yrs ago, per pt "they almost lost me", pt unsure what anesthesia was used Osteoarthritis AV fistula L arm; not used History of esophageal dilatation GERD (gastroesophageal reflux disease) Hypothyroidism Diabetes mellitus, type 2 Anemia Diabetic retinopathy Glaucoma Claustrophobia Hypertension Cardiac murmur Aortic stenosis Asthma inhaler prn Surgical History Aortic valve replaced Status post biopsy of kidney benign History of colonoscopy History of esophagogastroduodenoscopy (EGD) History of tooth extraction wisdom teeth Status post medial meniscus repair right History of tonsillectomy and adenoidectomy History of bilateral cataract extraction Status post laser trabeculoplasty of eye bilt Family History Mother Family history of esophageal cancer Social History Smoking Status: Never smoker Second Hand Exposure: Yes (father/mother smoked); Do You Dip or Chew Tobacco: No; Preferred Language: Taiwanese Communication Ability: Effective Visual Impairment: Partially Limited Hearing Ability: Normal Customer Quality Specialist Required: No Beliefs That Will Affect Care: None marital status: Single Current Living Situation: Family Current Living Situation Comment: Independent living current occupational status: retired other: Leigh King PCP, Dr. Cade- [employer]. Dr. Bone Feels Safe at Home: Yes Diet: diabetic and low salt during the past year weight has: remained stable Assistive Devices: Walker Allergies Allergies Allergy/AdvReac Type Severity Reaction Status Date / Time arformoterol [From Brovana] Allergy Intermediate asthma Verified 09/03/24 15:28 flare up bacitracin Allergy Intermediate RASH Verified 09/03/24 15:28 budesonide Allergy Intermediate ITCHING IN Verified 09/03/24 15:28 THROAT AND EARS AFTER USE calamine Allergy Intermediate RASH Verified 09/03/24 15:28 codeine Allergy Intermediate Hallucinati Verified 09/03/24 15:28 ng neomycin Allergy Intermediate RASH Verified 09/03/24 15:28 Penicillins Allergy Intermediate HIVES/FLUSH Verified 09/03/24 15:28 ING polymyxin B Allergy Intermediate RASH Verified 09/03/24 15:28 shrimp Allergy Intermediate "JUST Verified 09/03/24 15:28 SHRIMP" - HIVES silver Allergy Intermediate Unknown Verified 09/03/24 15:28 NSAIDS (Non-Steroidal Allergy Mild "felt like Verified 09/03/24 15:28 Anti-Inflamma I was swallowing a burning coal" Sulfa (Sulfonamide Allergy Unknown UNKNOWN Verified 09/03/24 15:28 Antibiotics) REACTION - "HAD ON CHART SINCE INFANT." amlodipine AdvReac Severe "extreme Verified 09/03/24 15:28 water retention" thimerosal AdvReac Severe TACHYCARDIA Verified 09/03/24 15:28 chondroitin sulfate A AdvReac Intermediate AFFECTS Verified 09/03/24 15:28 EYES CHLORAHEXADINE Allergy Severe BLISTERY, Uncoded 09/03/24 15:28 RASH Home Meds Home Medications Medication Instructions Recorded Confirmed aspirin 81 mg tablet,delayed 81 mg PO HS 04/17/18 09/03/24 release (Shannan Low Dose Aspirin) bisacodyl 5 mg tablet,delayed 5 mg PO QPM PRN Constipation 04/17/18 09/03/24 release (Dulcolax (bisacodyl)) brinzolamide 1 %-brimonidine 0.2 % 1 drp ophthalmic (eye) BID 04/17/18 09/03/24 eye drops,suspension (Simbrinza) calcium carbonate (Tums) 300 mg PO DAILY PRN Acid Reflux 04/17/18 09/03/24 cholecalciferol (vitamin D3) 25 1,000 unit PO 5XWK 04/17/18 09/03/24 mcg (1,000 unit) capsule gelatin 600 mg capsule 1 tab PO BID 04/17/18 09/03/24 polyethylene glycol 3350 17 1 dose PO DAILY PRN Constipation 04/17/18 09/03/24 gram/dose oral powder (Miralax) insulin aspart U-100 100 unit/mL 1 sliding scale dose subcut 06/05/23 09/03/24 subcutaneous cartridge (Novolog USEASDIRECTD PenFill U-100 Insulin aspart) insulin glargine 100 unit/mL (3 4 - 7 unit subcut QPM 06/05/23 09/03/24 mL) subcutaneous pen (Lantus Solostar U-100 Insulin) loratadine 10 mg tablet (Claritin) 5 mg PO HS 06/05/23 09/03/24 fluticasone 100 mcg-salmeterol 50 1 inh inhalation BID 12/13/23 09/03/24 mcg/dose blistr powdr for inhalation (Advair Diskus) acetaminophen 325 mg capsule 325 mg PO QID PRN Pain 07/22/24 09/03/24 albuterol sulfate 90 mcg/actuation 2 puff inhalation DIRECTED PRN 09/03/24 09/03/24 aerosol inhaler Shortness Of Breath Or Wheezing carboxymethylcellulose sodium 1 % 1 drp ophthalmic (eye) BID 09/03/24 09/03/24 eye liquid gel drops docusate sodium 100 mg capsule 100 mg PO DAILY PRN Constipation 09/03/24 09/03/24 (Colace) famotidine 40 mg tablet 40 mg PO QPM 09/03/24 09/03/24 gabapentin 100 mg capsule 100 mg PO DAILY 09/03/24 09/03/24 levothyroxine 150 mcg tablet 150 mcg PO DAILYBB 09/03/24 09/03/24 linezolid 600 mg tablet 600 mg PO BID 09/03/24 09/03/24 magnesium oxide 400 mg PO DIRECTED 09/03/24 09/03/24 midodrine 5 mg tablet 5 - 10 mg PO BID 09/03/24 09/03/24 lyulihai-aef-wtyrm ac 400 1 tab PO DAILY 09/03/24 09/03/24 mcg-calcium carb 500 mg-vit K1 20 mcg tablet (Women's 50 Plus Multivitamin) psyllium 1 tbsp PO DAILY PRN Constipation 09/03/24 09/03/24 sennosides 8.6 mg-docusate sodium 1 tab-cap PO BID PRN Constipation 09/03/24 09/03/24 50 mg tablet (Senokot-S) sevelamer carbonate 800 mg tablet 1,600 mg PO TID 09/03/24 09/03/24 sodium chloride, sodium 1 ea DIRECTED PRN Dry Nasal 09/03/24 09/03/24 bicarb-nasal rinse squeeze bottle Passages with packet ([place] Sinus Rinse with packet) Results & Data (ED) Vital Signs Vital Signs - 24 hr 09/03/24 12:59 09/03/24 12:59 09/03/24 12:59 Pulse Rate 74 Pulse Rate [Apical] Respiratory Rate 22 Blood Pressure 99/40 L Blood Pressure [Right Arm] Blood Pressure Mean 59 Blood Pressure Mean [Right Arm] Blood Pressure Position Sitting Pulse Oximetry 98 Oxygen Delivery Method Room Air Room Air Room Air Sepsis Recent Fever Within 48 Hours No Sepsis New/Unexplained Change in Mental Status No Sepsis Action Taken by Nursing Physician Notified 09/03/24 13:08 09/03/24 13:25 09/03/24 15:07 Pulse Rate 72 Pulse Rate [Apical] 70 Respiratory Rate 20 Blood Pressure Blood Pressure [Right Arm] 106/50 L Blood Pressure Mean Blood Pressure Mean [Right Arm] 68 Blood Pressure Position Pulse Oximetry 97 100 Oxygen Delivery Method Room Air Room Air Sepsis Recent Fever Within 48 Hours Sepsis New/Unexplained Change in Mental Status Sepsis Action Taken by Nursing 09/03/24 15:07 09/03/24 15:07 09/03/24 15:07 Pulse Rate Pulse Rate [Apical] Respiratory Rate Blood Pressure 106/50 L 106/50 L 106/50 L Blood Pressure [Right Arm] Blood Pressure Mean 71 71 71 Blood Pressure Mean [Right Arm] Blood Pressure Position Pulse Oximetry Oxygen Delivery Method Sepsis Recent Fever Within 48 Hours Sepsis New/Unexplained Change in Mental Status Sepsis Action Taken by Nursing 09/03/24 15:07 09/03/24 15:07 09/03/24 15:07 Pulse Rate Pulse Rate [Apical] Respiratory Rate Blood Pressure 106/50 L 106/50 L 106/50 L Blood Pressure [Right Arm] Blood Pressure Mean 71 71 71 Blood Pressure Mean [Right Arm] Blood Pressure Position Pulse Oximetry Oxygen Delivery Method Sepsis Recent Fever Within 48 Hours Sepsis New/Unexplained Change in Mental Status Sepsis Action Taken by Nursing 09/03/24 15:07 09/03/24 15:07 09/03/24 15:12 Pulse Rate 70 Pulse Rate [Apical] Respiratory Rate 17 Blood Pressure 106/50 L 106/50 L Blood Pressure [Right Arm] Blood Pressure Mean 71 71 Blood Pressure Mean [Right Arm] Blood Pressure Position Pulse Oximetry Oxygen Delivery Method Sepsis Recent Fever Within 48 Hours Sepsis New/Unexplained Change in Mental Status Sepsis Action Taken by Nursing Laboratory Data Attestation: I reviewed the patient's lab results. 09/03/24 16:28 09/03/24 16:28 Lab Results 09/03/24 09/03/24 09/03/24 Range/Units 13:02 14:03 14:45 WBC 3.00 L (4.8-10.8) K/ul RBC 2.47 L (4.20-5.40) M/uL Hgb 7.3 L (12.0-16.0) g/dl Hct 22.5 L (37.0-47.0) % MCV 91.1 (80.0-100.0) fL MCH 29.6 (25.0-34.0) pg MCHC 32.4 (32.0-36.0) g/dL RDW Std Deviation 60.8 H (36.4-46.3) fL RDW Coeff of Cinda 18.4 H (11.5-14.5) % Plt Count 12 L* (130-400) K/uL Immature Gran % (Auto) 0.3 % Neut % (Auto) 82.0 % Lymph % (Auto) 11.7 % [place] % (Auto) 4.0 % Eos % (Auto) 1.0 % Baso % (Auto) 1.0 % Reticulocyte % (Auto) 0.26 L (0.50-2.00) % Neut # (Auto) 2.46 (1.40-6.50) K/uL Lymph # (Auto) 0.35 L (1.20-3.40) K/uL [place] # (Auto) 0.12 (0.11-0.59) K/uL Eos # (Auto) 0.03 (0.00-0.50) K/uL Baso # (Auto) 0.03 (0.00-0.20) K/uL Reticulocyte # 0.010 L (0.020-0.100) 10^6/uL Immature Gran # (Auto) 0.01 (0.01-0.20) K/uL Platelet Estimate Signific. Decreased L (Normal) Ovalocytes 1+ Peripher Smr Path Cons Cancelled PT 15.1 H (9.0-12.0) Seconds INR 1.4 H (0.9-1.1) Sodium 133 L (136-145) mmol/L Potassium 3.0 L (3.5-5.1) mmol/L Chloride 86 L (98-107) mmol/L Carbon Dioxide 23 (21-32) mmol/L Anion Gap 24 H (3-11) BUN 22 (6-23) mg/dl Creatinine 2.49 H (0.6-1.2) mg/dl Est Cr Clr Drug Dosing 18.2 ml/min eGFR 19.18 BUN/Creatinine Ratio 8.8 L (10-20) Glucose 119 H (70-99(Fasting)) mg/dl Calcium 9.1 (8.6-10.3) mg/dl Phosphorus 3.5 (2.5-4.9) mg/dl Magnesium 1.9 (1.7-2.4) mg/dl Iron 184 H (35-150) mcg/dl Unsaturated IBC < 55 L (155-355) mcg/dl Transferrin 135 L (200-360) mg/dl Ferritin 1300.8 H (8-388) ng/ml Total Bilirubin 1.7 H (0.2-1.0) mg/dl AST 14 (13-39) U/L ALT 13 (7-52) U/L Alkaline Phosphatase 117 H (34-104) U/L Total Creatine Kinase 32 (26-192) U/L Troponin I High Sens 26.5 H 24.8 H (0-14) pg/ml Total Protein 6.7 (6.0-8.3) gm/dl Albumin 3.7 (3.4-5.0) gm/dl Globulin 3.0 (2.5-4.0) gm/dl Albumin/Globulin Ratio 1.2 (0.9-2) Lipase 35 (11-82) U/L Vitamin B12 1286 H (180-914) pg/ml Folate 7.36 (>5.38) ng/ml TSH 1.369 (0.300-4.500) uIu/ml Adenovirus (PCR) Not Detected (NotDetected) B. pertussis DNA (PCR) Not Detected (NotDetected) B.parapertussis DNA PCR Not Detected (NotDetected) C. pneumoniae DNA (PCR) Not Detected (NotDetected) Coronavirus OC43 (PCR) Not Detected (NotDetected) Coronavirus HKU1 (PCR) Not Detected (NotDetected) Coronavirus 229E (PCR) Not Detected (NotDetected) SARS-CoV-2 (PCR) Not Detected (NotDetected) Coronavirus NL63 (PCR) Not Detected (NotDetected) Human Metapneumovir PCR Not Detected (NotDetected) Influenza Type A (PCR) Not Detected (NotDetected) Influenza Type B (PCR) Not Detected (NotDetected) M. pneumoniae (PCR) Not Detected (NotDetected) Parainfluenza 1 (PCR) Not Detected (NotDetected) Parainfluenza 2 (PCR) Not Detected (NotDetected) Parainfluenza 3 (PCR) Not Detected (NotDetected) Parainfluenza 4 (PCR) Not Detected (NotDetected) RSV (PCR) Not Detected (NotDetected) Entero/Rhino (PCR) Not Detected (NotDetected) Blood Type A Positive Antibody Screen NEGATIVE Crossmatch See Detail Administered Medications Discontinued Medications Albuterol (Albut/Ipratrop 3mg/0.5mg Neb 3 Ml Vial) 3 ml NEB Q6R ON LICENSE OF [facility]; Protocol Stop: 10/03/24 18:59 Last Admin: 09/03/24 20:20 Dose: Not Given Documented By: LAUREANO Fentanyl Citrate (Fentanyl Bolus From Bag) 50 mcg IV Q60M PRN PRN Reason: Pain or Agitation Stop: 09/17/24 17:07 Last Admin: 09/03/24 17:23 Dose: 50 mcg Documented By: MARGE Co-signed By: HARMAN Fentanyl Citrate (Fentanyl Citrate 2,500 Mcg/250 Ml Bag) Confirm Administered Dose 2,500 mcg IV .STK-MED ONE Stop: 09/03/24 17:11 Last Admin: 09/03/24 17:21 Dose: Not Given Documented By: MARGE Fentanyl Citrate (Fentanyl Citrate 2,500 Mcg/250 Ml Bag) Confirm Administered Dose 2,500 mcg IV .STK-MED ONE Stop: 09/03/24 17:12 Last Admin: 09/03/24 17:21 Dose: Not Given Documented By: MARGE Sodium Chloride (Nss) 500 mls @ 999 mls/hr IV .Q31M ONE Stop: 09/03/24 13:31 Last Admin: 09/03/24 13:50 Dose: Not Given Documented By: QGV Fentanyl Citrate (Fentanyl Citrate) 2,500 mcg in 250 mls @ 7.5 mls/hr IV .[id number] ON LICENSE OF [facility]; Protocol Stop: 09/17/24 17:14 Last Titration: 09/03/24 18:02 Dose: 75 mcg/hr, 7.5 mls/hr Documented By: MARGE Co-signed By: ERNESTO Admin: 09/03/24 17:19 Dose: 25 mcg/hr, 2.5 mls/hr Documented By: MARGE Co-signed By: HARMAN Vancomycin HCl 1,750 mg/ (Sodium Chloride) 535 mls @ 200 mls/hr IV NOW ONE Stop: 09/03/24 19:55 Last Admin: 09/03/24 18:22 Dose: Not Given Documented By: MARGE Norepinephrine Bitartrate (Levophed/D5w) 4 mg in 250 mls @ 15.45 mls/hr IV .[id number] ON LICENSE OF [facility]; Protocol Stop: 10/03/24 17:29 Last Admin: 09/03/24 18:22 Dose: Not Given Documented By: MARGE Ioversol (Optiray 320 125ml) 118 ml IV ONCE ONE Stop: 09/03/24 16:47 Last Admin: 09/03/24 16:47 Dose: 118 ml Documented By: MERVAT Midazolam HCl (Midazolam Hcl 1 Mg/Ml 2ml Vial) 2 mg IV NOW STA Stop: 09/03/24 18:14 Last Admin: 09/03/24 18:22 Dose: 2 mg Documented By: MARGE Midodrine (Midodrine Hcl 2.5 Mg Tab) 5 mg PO NOW STA Stop: 09/03/24 13:58 Last Admin: 09/03/24 17:20 Dose: Not Given Documented By: MARGE Vecuronium [place] (Vecuronium [place] 10 Mg Vial) Confirm Administered Dose 10 mg IV .STK-MED ONE Stop: 09/03/24 17:30 Last Admin: 09/03/24 18:11 Dose: 10 mg Documented By: MARGE Co-signed By: HARMAN Vecuronium [place] (Vecuronium [place] 10 Mg Vial) 10 mg IV NOW STA Stop: 09/03/24 18:14 Last Admin: 09/03/24 18:22 Dose: Not Given Documented By: MARGE Imaging Data Radiologist's Impression: Chest X-Ray 09/03/24 12:59 XR chest 1V portable CLINICAL HISTORY: Chest pain, nonspecific COMPARISON STUDY: 05/07/2024 FINDINGS: The radiographic findings are unchanged. Cardiomegaly with a configuration suggestive of effusion or cardiomyopathy is again noted. Chronic pulmonary vascular congestion is redemonstrated. No focal airspace opacification or significant effusion. Stable aortic valve device and a loop recorder projected over the cardiac apex IMPRESSION: Stable exam. Globular cardiomegaly often associated with pericardial effusion or cardiomyopathy. No acute process identified. ACT 112: Negative or not required by law. Electronically signed by: Sharyn Leyva M.D. 09/03/2024 1:20 PM Discharge Plan Visit Data Chief Complaint: Shortness of Breath/Dyspnea ED Provider: Neymar Conway Discharge Problem: Anemia, Venous stasis ulcers of both lower extremities, ESRD (end stage renal disease) on dialysis, Subglottic stenosis, Elevated troponin Patient Disposition: Admitted As Inpatient Discharge Instructions Interventions: ED Discharge Assessment Last Done: 09/03/24 16:52
[2024-09-03] MEDS: SODIUM CHLORIDE 0.9% 500 ML IV ONE (13:15)
--- NOTE | 2024-09-03 13:21 | XRay Report ---
XR chest 1V portable CLINICAL HISTORY: Chest pain, nonspecific COMPARISON STUDY: 05/07/2024 FINDINGS: The radiographic findings are unchanged. Cardiomegaly with a configuration suggestive of ef fusion or cardiomyopathy is again noted. Chronic pulmonary vascular congestion is redemonstrated. No focal airspace opacification or significant effusion. Stable aortic valve device and a loop recorder projected over the cardiac apex IMPRESSION: Stable exam. Globular cardiomegaly often associated with pericardial effusion or cardiom yopathy. No acute process identified. ACT 112: Negative or not required by law. Electronically signed by: Sharyn Leyva M.D. 09/03/2024 1:20 PM
[2024-09-03 13:41] LABS: Albumin Globulin Ratio 1.2 (0.9-2); Albumin Level 3.7 gm/dl (3.4-5.0); BUN Creatinine Ratio 8.8 (10-20); Bilirubin,Total 1.7 mg/dl (0.2-1.0); Calcium 9.1 mg/dl (8.6-10.3); Creatinine Clr Calc Pharmacy 18.2 ml/min; Magnesium 1.9 mg/dl (1.7-2.4); Phosphorus 3.5 mg/dl (2.5-4.9); Total Protein 6.7 gm/dl (6.0-8.3)
[2024-09-03 13:43] LABS: Hematocrit (blood only) 22.5 % (37.0-47.0); Hemoglobin 7.3 g/dl (12.0-16.0); Mean Corpuscular Hemoglobin 29.6 pg (25.0-34.0); Mean Corpuscular Hgb Conc 32.4 g/dL (32.0-36.0); Mean Corpuscular Volume 91.1 fL (80.0-100.0); RDW Coefficient of Variation 18.4 % (11.5-14.5); RDW Standard Deviation 60.8 fL (36.4-46.3); Red Blood Count 2.47 M/uL (4.20-5.40)
[2024-09-03] MEDS ORDERED: SODIUM CHLORIDE 0.9% 50 ML IV PRN ×2 (13:45→17:09)
[2024-09-03] MEDS ORDERED: SODIUM CHLORIDE 0.9% 100 ML IV PRN ×2 (13:45→17:09)
[2024-09-03 13:47] LABS: Troponin I High Sensitivity 26.5 pg/ml (0-14)
[2024-09-03 13:49] LABS: INR 1.4 (0.9-1.1); Prothrombin Time 15.1 Seconds (9.0-12.0)
[2024-09-03 13:56] LABS: Basophils # (auto) 0.03 K/uL (0.00-0.20); Eosinophils # (auto) 0.03 K/uL (0.00-0.50); Immature Granulocytes # (auto) 0.01 K/uL (0.01-0.20); Immature Granulocytes % (auto) 0.3 %; Lymphocytes # (auto) 0.35 K/uL (1.20-3.40); Lymphocytes % (auto) 11.7 %; Monocytes # (auto) 0.12 K/uL (0.11-0.59); Neutrophils # (auto) 2.46 K/uL (1.40-6.50); Ovalocytes 1+; Platelet Estimate Signific. Decreased (Normal); Thyroid Stimulating Hormone 1.369 uIu/ml (0.300-4.500)
[2024-09-03 14:11] LABS: Adenovirus PCR Not Detected (NotDetected); Bordetella parapertussis PCR Not Detected (NotDetected); Bordetella pertussis PCR Not Detected (NotDetected); Chlamydia pneumoniae PCR Not Detected (NotDetected); Coronavirus 229E PCR Not Detected (NotDetected); Coronavirus CoV-2 (COVID19)PCR Not Detected (NotDetected); Coronavirus HKU1 PCR Not Detected (NotDetected); Coronavirus NL63 PCR Not Detected (NotDetected); Coronavirus OC43PCR Not Detected (NotDetected); Human Metapneumovirus PCR Not Detected (NotDetected); Influenza A PCR Not Detected (NotDetected); Influenza B PCR Not Detected (NotDetected); Mycoplasma pneumoniae PCR Not Detected (NotDetected); Parainfluenza Virus 1 PCR Not Detected (NotDetected); Parainfluenza Virus 2 PCR Not Detected (NotDetected); Parainfluenza Virus 3 PCR Not Detected (NotDetected); Parainfluenza Virus 4 PCR Not Detected (NotDetected); Respiratory Syncytial VirusPCR Not Detected (NotDetected); Rhinovirus/Enterovirus PCR Not Detected (NotDetected)
[2024-09-03 14:12] LABS: Platelet Count 12 K/uL (130-400)
--- NOTE | 2024-09-03 14:21 | History & Physical Report ---
Date of Service September 03, 2024 Assessment & Plan (1) Acute hypoxic respiratory failure: Plan: -2/2 sublgottic stenosis and perhaps pulmonary htn/pericardial effusion -original reason for presentation -initially on room air, then went apneic in CT scanner -intubated at CT scanner Plan: -comfort focused care -plan was to check DIC/TTP workup to r/o DIC/TTP, check CT neck for worsening stenosis -check echo for pericardial effusion -fluids ordered due to appearing fluid down, blood ordered as well (2) Shock: Plan: -occured when patient went for imaging, went into PEA with no pulse -underwent 2 rounds of resuscitation, both times with large pericardial effusion noted on bedside ultrasound -intubated during first attempt, complicated intubation given subglottic stenosis -likely cardiogenic vs. distributive vs. hemorrhagic shock given large pericardial effusion on bedside echos Plan: -comfort measures -s/p levophed, intubation -dilaudid for pain -ativan for agitation -glycopyrulate before extubation -eye and mouth care ordered -oxygen ordered for comfort -bisacodyl suppository ordered for constipation (3) ESRD on hemodialysis: Plan: -Primary high man is Dr. Antionette Yan. Undergoes HD M/W/F at [facility] which is complicated by difficulty with fistula, low Hgb and blood pressure -given duration of dialysis, patient likely has severe vascular disease and calcification leading to autonomic insufficiency Plan: -comfort measures (4) Subglottic stenosis: Plan: -Audible stridor with no evidence of respiratory distress on admission; maintaining upper 90s-100% O2 saturation on RA. -CT neck without contrast performed on 04/22/24 which revealed persistent moderate subglottic and upper tracheal stenosis secondary to eccentric soft tissue thickening, spanning around 1.6 cm in craniocaudal extent. Chronic issues with coughing and swallowing pills due to this. Mentions she can tolerate a regular diet however will place on full liquid diet for now and obtain speech therapy evaluation for further evaluation. Will obtain updated CT neck. Has an appointment on 10/07/[address] Dev Johnson, tube man, at [facility] to discuss possible surgical intervention. Plan: -CT neck imaging ordered, patient unable to tolerate and coded in CT scanner with PEA arrest -rest of body imaged after first successful resuscitation (5) Abnormal ankle brachial index: Plan: Arterial duplex studies performed on 08/21/23. 50 to 74% stenosis of right PFA. Right TBI is moderately decreased and left TBI is severely decreased. Evaluated by Marline Tobar PA-C on 09/25/23 and follow-up was 01/01/24. Okay for compression per Dr. Leo, but she has declined. S/p right GSV Clarivein on 02/12/[address] Leo. Cool BLE to touch on exam. Will obtain repeat AMY studies and consult vascular surgery while inpatient in this regard. -also ordered runoff (6) Elevated troponin: Plan: -in setting of above (7) Prolonged QT interval: Plan: Suspect demand ischemia ISO underlying comorbidities. EKG with prolonged QTc of 523 but no evidence of acute ST changes. Appears somewhat chronically elevated. Continue to trend troponin Q6H until flat. EKG with chest pain PRN. Avoid QT- prolonging agents as able; repeat EKG daily x 2 to closely monitor QTc. -PEA arrest x2 noted (8) Pericardial effusion: Plan: Resting TTE done on 07/10/23 with the following findings: LVEF = 55%, severely enlarged LA, grade II DD, mild intravalvular AR, mild MS, mild MR, moderate TR, moderate pulmonary HTN with estimated pulmonary artery systolic pressure of 58mmHg and moderate circumferential pericardial effusion with most significant amount of focal fluid collection adjacent to the RA (cardiac tamponade is absent). Had repeat TTE ordered for earlier this month to be completed as an outpatient however this was not done. CXR notes globular cardiomegaly often associated with pericardial effusion or cardiomyopathy. Will obtain updated TTE. Possible that worsening pericardial effusion could be contributing to progressive SOB. Will await TTE results to determine need for inpatient cardiology consult/evaluation. -discussed with cardiology, brother and POA offered pericardial drain but declined given against patient wishes after second resuscitation attempt (9) Chronic diastolic CHF (congestive heart failure): Plan: -Most recent TTE results as per above. Plan Comfort focused care at this time. 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 History obtained from the patient, discussion with ED provider and associated chart review. Patient seen at bedside in the ED with Dr. Goel. Cannot have MRI imaging. Of note, patient states that her swallowing and breathing have been getting worse for the past few weeks. She states that she is lightheaded and not feeling well overall. She states that she has not be tolerating her dialysis well the past few weeks, getting lightheaded and feeling uncomfortable at the end of each session. She is concerned her fistula is not working well either. Discussed code status at length, risks and benefits explained. She states that she wants her brother to make decisions if she is unable, Tomas, and we attempted to call him in the room. She also stated she would like resuscitation, as long as there was a chance of survival and no chance of affecting her mentation. She would not want to suffer at end of life and would not want a prolonged course of resuscitation. Allergies Allergy/AdvReac Type Severity Reaction Status Date / Time arformoterol [From Brovana] Allergy Intermediate asthma Verified 09/03/24 15:28 flare up bacitracin Allergy Intermediate RASH Verified 09/03/24 15:28 budesonide Allergy Intermediate ITCHING IN Verified 09/03/24 15:28 THROAT AND EARS AFTER USE calamine Allergy Intermediate RASH Verified 09/03/24 15:28 codeine Allergy Intermediate Hallucinati Verified 09/03/24 15:28 ng neomycin Allergy Intermediate RASH Verified 09/03/24 15:28 Penicillins Allergy Intermediate HIVES/FLUSH Verified 09/03/24 15:28 ING polymyxin B Allergy Intermediate RASH Verified 09/03/24 15:28 shrimp Allergy Intermediate "JUST Verified 09/03/24 15:28 SHRIMP" - HIVES silver Allergy Intermediate Unknown Verified 09/03/24 15:28 NSAIDS (Non-Steroidal Allergy Mild "felt like Verified 09/03/24 15:28 Anti-Inflamma I was swallowing a burning coal" Sulfa (Sulfonamide Allergy Unknown UNKNOWN Verified 09/03/24 15:28 Antibiotics) REACTION - "HAD ON CHART SINCE ." amlodipine AdvReac Severe "extreme Verified 09/03/24 15:28 water retention" thimerosal AdvReac Severe TACHYCARDIA Verified 09/03/24 15:28 chondroitin sulfate A AdvReac Intermediate AFFECTS Verified 09/03/24 15:28 EYES CHLORAHEXADINE Allergy Severe BLISTERY, Uncoded 09/03/24 15:28 RASH Home Medications Medication Instructions Recorded Confirmed Type aspirin 81 mg tablet,delayed 81 mg PO HS 04/17/18 09/03/24 History release (Shannan Low Dose Aspirin) bisacodyl 5 mg tablet,delayed 5 mg PO QPM PRN Constipation 04/17/18 09/03/24 History release (Dulcolax (bisacodyl)) brinzolamide 1 %-brimonidine 0.2 % 1 drp ophthalmic (eye) BID 04/17/18 09/03/24 History eye drops,suspension (Simbrinza) calcium carbonate (Tums) 300 mg PO DAILY PRN Acid Reflux 04/17/18 09/03/24 History cholecalciferol (vitamin D3) 25 1,000 unit PO 5XWK 04/17/18 09/03/24 History mcg (1,000 unit) capsule gelatin 600 mg capsule 1 tab PO BID 04/17/18 09/03/24 History polyethylene glycol 3350 17 1 dose PO DAILY PRN Constipation 04/17/18 09/03/24 History gram/dose oral powder (Miralax) insulin aspart U-100 100 unit/mL 1 sliding scale dose subcut 06/05/23 09/03/24 History subcutaneous cartridge (Novolog USEASDIRECTD PenFill U-100 Insulin aspart) insulin glargine 100 unit/mL (3 4 - 7 unit subcut QPM 06/05/23 09/03/24 History mL) subcutaneous pen (Lantus Solostar U-100 Insulin) loratadine 10 mg tablet (Claritin) 5 mg PO HS 06/05/23 09/03/24 History fluticasone 100 mcg-salmeterol 50 1 inh inhalation BID 12/13/23 09/03/24 History mcg/dose blistr powdr for inhalation (Advair Diskus) acetaminophen 325 mg capsule 325 mg PO QID PRN Pain 07/22/24 09/03/24 History albuterol sulfate 90 mcg/actuation 2 puff inhalation DIRECTED PRN 09/03/24 09/03/24 History aerosol inhaler Shortness Of Breath Or Wheezing carboxymethylcellulose sodium 1 % 1 drp ophthalmic (eye) BID 09/03/24 09/03/24 History eye liquid gel drops docusate sodium 100 mg capsule 100 mg PO DAILY PRN Constipation 09/03/24 09/03/24 History (Colace) famotidine 40 mg tablet 40 mg PO QPM 09/03/24 09/03/24 History gabapentin 100 mg capsule 100 mg PO DAILY 09/03/24 09/03/24 History levothyroxine 150 mcg tablet 150 mcg PO DAILYBB 09/03/24 09/03/24 History linezolid 600 mg tablet 600 mg PO BID 09/03/24 09/03/24 History magnesium oxide 400 mg PO DIRECTED 09/03/24 09/03/24 History midodrine 5 mg tablet 5 - 10 mg PO BID 09/03/24 09/03/24 History nbxfbcfk-eqe-fjpcm ac 400 1 tab PO DAILY 09/03/24 09/03/24 History mcg-calcium carb 500 mg-vit K1 20 mcg tablet (Women's 50 Plus Multivitamin) psyllium 1 tbsp PO DAILY PRN Constipation 09/03/24 09/03/24 History sennosides 8.6 mg-docusate sodium 1 tab-cap PO BID PRN Constipation 09/03/24 09/03/24 History 50 mg tablet (Senokot-S) sevelamer carbonate 800 mg tablet 1,600 mg PO TID 09/03/24 09/03/24 History sodium chloride, sodium 1 ea DIRECTED PRN Dry Nasal 09/03/24 09/03/24 History bicarb-nasal rinse squeeze bottle Passages with packet ([place] Sinus Rinse with packet) Past Med/Surg History Problem List (Updated 09/03/24 @ 18:41 by Jc Santizo MD) Cardiac arrest Acute hypoxic respiratory failure Shock Subglottic stenosis (Acute) ESRD (end stage renal disease) on dialysis (Acute) Anemia (Acute) Prolonged QT interval Elevated troponin (Acute) Pericardial effusion ESRD on hemodialysis Chronic diastolic CHF (congestive heart failure) Subglottic stenosis Hypotension (Acute) Hypotension of hemodialysis CHF exacerbation ESRD (end stage renal disease) on dialysis Constipation (Acute) MRSA (methicillin resistant staph aureus) culture positive Chronic pain of both lower extremities Hemodialysis patient Chronic kidney disease (CKD), stage IV (severe) (Acute) Abnormal ankle brachial index (Acute) Venous stasis ulcer (Acute) Traumatic wound (Acute) Venous stasis ulcers of both lower extremities (Acute) Contusion of left knee (Acute) Traumatic open wound of left lower leg (Acute) Venous stasis ulcer of left lower leg with edema of left lower leg (Acute) Encounter for pre-operative examination Medical History Artificial cardiac pacemaker Heart attack History of anesthesia reaction Received Sodium Pentothal during wisdom tooth removal...pt states she woke up screaming. History of anesthesia reaction During knee sx 40yrs ago, per pt "they almost lost me", pt unsure what anesthesia was used Osteoarthritis AV fistula L arm; not used History of esophageal dilatation GERD (gastroesophageal reflux disease) Hypothyroidism Diabetes mellitus, type 2 Anemia Diabetic retinopathy Glaucoma Claustrophobia Hypertension Cardiac murmur Aortic stenosis Asthma inhaler prn Surgical History Aortic valve replaced Status post biopsy of kidney benign History of colonoscopy History of esophagogastroduodenoscopy (EGD) History of tooth extraction wisdom teeth Status post medial meniscus repair right History of tonsillectomy and adenoidectomy History of bilateral cataract extraction Status post laser trabeculoplasty of eye bilt Family History Mother Family history of esophageal cancer Social History Smoking Status: Never smoker Second Hand Exposure: Yes (father/mother smoked); Do You Dip or Chew Tobacco: No; Hx Alcohol Use: Yes Alcohol type: wine Alcohol Intake Frequency Comment: OCCASIONALLY, "NOT VERY OFTEN" Hx Substance Use: No Preferred Language: Yi Communication Ability: Effective Visual Impairment: Partially Limited Hearing Ability: Normal Pole Incisor Operator Required: No Beliefs That Will Affect Care: None marital status: Single Current Living Situation: Family Current Living Situation Comment: Independent living current occupational status: retired other: Leigh King PCP, Dr. Cade- Network Manager. Dr. Bone Feels Safe at Home: Yes Diet: diabetic and low salt during the past year weight has: remained stable Assistive Devices: Walker Review of Systems Review of Systems: At least ten systems reviewed and negative, except as noted in the HPI. Physical Exam Physical Exam: Gen: A&O 3 saavedra and uncomfortable HEENT: NCAT, EOMI, not icteric. External ears normal. No rhinorrhea. dry mucous membranes. Neck: Supple, full range of motion, no observable masses, No meningeal sign. Lungs: poor air movement CV: RRR, no edema. Abdomen: Soft, nondistended, No rebound tenderness. MSK: No joint swelling, no redness. Skin: No rashes, petechiae, lesions. Normal color per patient. Neuro: Normal Gait, Grossly intact. Psych: Appropriate for situation. Results & Data Results & Data Vital Signs (Past 12 Hours) Vital Signs Pulse Resp BP Pulse Ox O2 Del Method 09/03/24 13:25 72 09/03/24 13:08 97 Room Air 09/03/24 12:59 Room Air 09/03/24 12:59 74 22 99/40 L 98 Room Air 09/03/24 12:59 Room Air Laboratory Results Short CBC 09/03/24 Range/Units 13:02 WBC 3.00 L (4.8-10.8) K/ul Hgb 7.3 L (12.0-16.0) g/dl Hct 22.5 L (37.0-47.0) % Plt Count 12 L* (130-400) K/uL BMP 09/03/24 13:02 Sodium 133 L Potassium 3.0 L Chloride 86 L Carbon Dioxide 23 BUN 22 Creatinine 2.49 H Glucose 119 H Calcium 9.1 Liver Function 09/03/24 Range/Units 13:02 Total Bilirubin 1.7 H (0.2-1.0) mg/dl AST 14 (13-39) U/L ALT 13 (7-52) U/L Alkaline Phosphatase 117 H (34-104) U/L Albumin 3.7 (3.4-5.0) gm/dl Diagnostic Findings Chest X-Ray 09/03/24 12:59 XR chest 1V portable CLINICAL HISTORY: Chest pain, nonspecific COMPARISON STUDY: 05/07/2024 FINDINGS: The radiographic findings are unchanged. Cardiomegaly with a configuration suggestive of effusion or cardiomyopathy is again noted. Chronic pulmonary vascular congestion is redemonstrated. No focal airspace opacification or significant effusion. Stable aortic valve device and a loop recorder projec lauern over the cardiac apex IMPRESSION: Stable exam. Globular cardiomegaly often associated with pericardial effusion or cardiomyopathy. No acute process identified. ACT 112: Negative or not required by law. Electronically signed by: Sharyn Leyva M.D. 09/03/2024 1:20 PM Medications Administered Discontinued Medications Sodium Chloride (Nss) 500 mls @ 999 mls/hr IV .Q31M ONE Stop: 09/03/24 13:31 Last Admin: 09/03/24 13:50 Dose: Not Given Documented By: QGV Code Status & VTE Plan Code Status FULL CODE, see above for conversation [facility] minutes total between patient (see first convo above) and then discussed with brother during second resuscitation, states his sister would not have wanted to suffer at end of life and would like to focus on her comfort, with no further resuscitation or procedures (discussed pericardial drain). She would like her to be DNRDNI with comfort measures, which was recommended by this provider given patient wishes to not suffer and have prolonged resuscitation at end of life.
[2024-09-03 14:28] LABS: Reticulocyte % 0.26 % (0.50-2.00); Reticulocytes # 0.01 10^6/uL (0.020-0.100)
[2024-09-03 14:54] LABS: Iron 184 mcg/dl (35-150); Transferrin 135 mg/dl (200-360); Unsaturated Iron Binding Cap < 55 mcg/dl (155-355)
[2024-09-03 15:00] LABS: Ferritin 1300.8 ng/ml (8-388)
[2024-09-03 15:01] LABS: Folate (Folic Acid),Ser orPlas 7.36 ng/ml (>5.38)
[2024-09-03 15:39] LABS: Troponin I High Sensitivity 24.8 pg/ml (0-14)
[2024-09-03] MEDS: OPTIRAY 320 125ml IV ONE (16:47)
[2024-09-03] MEDS ORDERED: STAT IV Infusion **Titration per Protocol STA ×2 (17:08→17:21)
[2024-09-03] MEDS ORDERED: MIDAZOLAM HCL 1 MG/ML 2ML VIAL IV PRN (17:08)
[2024-09-03 17:09] LABS: Hematocrit (blood only) 22.8 % (37.0-47.0); Hemoglobin 7.2 g/dl (12.0-16.0); Mean Corpuscular Hgb Conc 31.6 g/dL (32.0-36.0); Platelet Count 7 K/uL (130-400); RDW Coefficient of Variation 18.9 % (11.5-14.5); RDW Standard Deviation 65.1 fL (36.4-46.3); White Blood Count 4.54 K/ul (4.8-10.8)
[2024-09-03] MEDS ORDERED: VANCOMYCIN CONSULT ACTIVE PRN (17:11)
[2024-09-03] MEDS ORDERED: POLYETHYLENE (MIRALAX) 17 GM PACK PO PRN (17:14)
[2024-09-03] MEDS ORDERED: ACETAMINOPHEN 325 MG TAB PO PRN (17:14)
[2024-09-03 17:15] LABS: Albumin Globulin Ratio 1.2 (0.9-2); Albumin Level 3.3 gm/dl (3.4-5.0); BUN Creatinine Ratio 9.3 (10-20); Bilirubin,Total 1.4 mg/dl (0.2-1.0); Calcium 8.7 mg/dl (8.6-10.3); Creatinine Clr Calc Pharmacy 16.9 ml/min; Globulin 2.8 gm/dl (2.5-4.0); Phosphorus 4.5 mg/dl (2.5-4.9); Potassium 2.8 mmol/L (3.5-5.1); Total Protein 6.1 gm/dl (6.0-8.3)
[2024-09-03] MEDS ORDERED: CEFEPIME 2000MG 2,000 MG/20 ML SYR IV SCH (17:15)
[2024-09-03 17:18] LABS: Troponin I High Sensitivity 27.4 pg/ml (0-14)
[2024-09-03] MEDS: fentaNYL citrate 2,500 MCG/250 ML BAG IV SCH (17:19)
--- NOTE | 2024-09-03 17:19 | CT Scan Report ---
Technique: Axial computed tomography images were obtained of the brain from the vertex to the skull base without intravenous contrast. Findings: There is no sign of intracranial hemorrhage. There is normal luis-white matter differentiation with no sign of acute or old infarction. No midline shift or other form of herniation is identified. There is no hydrocephalus. No obvious mass lesion is seen on this noncontrast examination. The visualized portions of the orbits and paranasal sinuses appear unremarkable. The mastoid air cells appear clear Impression: Unremarkable noncontrast CT of the brain Electronically signed by Erik Cheng 09-03-2024 5:19 PM
[2024-09-03] MEDS: MIDODRINE HCL 2.5 MG TAB PO STA (17:20)
[2024-09-03 17:21] LABS: Fibrinogen 279 mg/dl (184-400); Partial Thromboplastin Ratio 1.2; Partial Thromboplastin Time 32 Seconds (21-31)
[2024-09-03] MEDS: fentaNYL citrate 2,500 MCG/250 ML BAG IV ONE ×2 (17:21)
[2024-09-03] MEDS: fentaNYL BOLUS from BAG IV PRN (17:23)
--- NOTE | 2024-09-03 17:23 | CT Scan Report ---
Technique: Axial computed tomography images were obtained of the chest after the administration of intravenous contrast according to the CT angiogram protocol Findings: There is no definite sign of pulmonary embolism. There is prominent edema. There are multifocal groundglass opacities are likely due to the pulmonary edema, though concurrent viral pneumonitis cannot be excluded. There is small bilateral pleural effusions, left larger than right. There is no pneumothorax. There is an endotracheal tube in a speckled position There is no mediastinal, hilar, or axillary adenopathy. The thoracic aorta appears unremarkable with no sign of aneurysm or dissection. There is a moderate sized pericardial effusion. There is an aortic valve replacement. There is coronary atherosclerosis. There is a suspected small calcified nodule in the left thyroid lobe There is a 1.5 cm cyst in the left hepatic lobe. No fracture is seen. No focal osseous lesion is evident Impression: 1. No definite sign of pulmonary embolism 2. Pulmonary edema and small bilateral pleural effusions 3. Groundglass opacities that are likely due to the pulmonary edema, though concurrent viral pneumonia cannot be excluded 4. Moderate sized pericardial effusion 5. Apparent small thyroid nodule, indeterminate in nature. A follow-up thyroid ultrasound could be obtained Electronically signed by Erik Cheng 09-03-2024 5:22 PM
--- NOTE | 2024-09-03 17:25 | Procedure Note ---
Procedure Note Date of Service September 03, 2024 DIFFICULT INTUBATION INTUBATION PROCEDURE NOTE: Dr. Jc Santizo A time-out was completed verifying correct patient, procedure, site, positioning. Patient was evaluated and required intubation for airway protection and hypoxia. Sedative agent used: None Paralysis agent used: None Emergent consent was implied given patients rapidly declining clinical status and need for airway protection. Number of attempts: 3 The patient was prepared in the appropriate fashion. No sedation was required. The patient was easily ventilated using [id number] to achieve adequate oxygenation. [place] scope was utilized. Excellent view of the vocal cords was obtained with glide scope. Patient has a history of subglottic stenosis. Size 7 tube was attempted to be inserted in the airway x 2. We were able to insert the tube just proximal past the vocal cords, but not beyond this region. I then removed the glide scope in the endotracheal tube and inserted a bronchoscope with a size 6 endotracheal tube loaded. I was able to easily identify the vocal cords and passed the bronchoscope through the vocal cords and then inserted the size 6 endotracheal tube past the vocal cords. Bronchoscope was then withdrawn. CO2 colorimetric change was identified and bilateral breath sounds were heard. CT scan of her chest confirmed adequate placement of the endotracheal tube. Patient tolerated the procedure well and there were no immediate complications. [facility] Procedure Codes (Charges) Resuscitation Resuscitation: 96867 Endotracheal Intubation, emergency Coding CPT Codes Resuscitation - Resuscitation: 98218 Endotracheal Intubation, emergency ([id number]) Additional Codes Date of Service ([facility].SURGERY)
--- NOTE | 2024-09-03 17:26 | CT Scan Report ---
Technique: Axial computed tomography images were obtained of the neck after the administration of intravenous contrast according to the CT angiogram protocol Findings: Evaluation is limited by motion artifact No stenosis is seen of the common carotid arteries bilaterally. There is an approximately 50% diameter stenosis of the right carotid bulb. There is mild calcified plaque within the left carotid bulb, without apparent stenosis. The remainder of the internal carotid arteries appear patent bilaterally. No stenosis of the external carotid arteries is seen There is a mild stenosis of the distal left vertebral artery. The visualized thoracic aorta appears unremarkable There is multilevel degenerative disc disease and osteoarthritis of the cervical spine. Impression: 1. Approximately 50% stenosis of the right carotid bulb 2. Mild stenosis of the distal left vertebral artery Electronically signed by Erik Cheng 09-03-2024 5:26 PM
[2024-09-03 17:33] LABS: iSTAT Allen Test Pass; iSTAT Art Bld Gas pCO2 Correct 34 mmHg (35-46); iSTAT Art Bld Gas pH Corrected 7.177 (7.35-7.45); iSTAT Arterial Blood Gas HCO3 13 meg/L (19-24); iSTAT Arterial Blood Gas pCO2 38 mmHg (35-46); iSTAT Arterial Blood Gas pH 7.15 (7.35-7.45); iSTAT Arterial Blood Gas pO2 316 mmHg (80-95); iSTAT Arterial Blood Gas pO2 C 304; iSTAT Carbon Dioxide 14 mmol/L (24-31); iSTAT FiO2 100 %; iSTAT Hematocrit 20 % (37-47); iSTAT Hemoglobin 6.8 g/dl (12.0-16.0); iSTAT Potassium 2.8 mmol/L (3.3-5.0); iSTAT Sample Type Arterial; iSTAT Site R Radial; iSTAT Sodium 131 mmol/L (135-144); iSTAT SpO2 100
[2024-09-03 17:35] VITALS: O2SAT 96
[2024-09-03 17:37] LABS: D Dimer 770 ug/L FEU (0-500)
[2024-09-03] MEDS ORDERED: SODIUM BICARB 8.4% INJ 50 MEQ/50 ML SYR IV ONE ×3 (17:39→21:09)
--- NOTE | 2024-09-03 17:44 | CT Scan Report ---
INDICATION: Code blue. COMPARISON: No relevant priors available. TECHNIQUE: Axial CT images of the abdomen, pelvis and bilateral lower extremities were obtained following IV contrast administration. Coronal and sagittal reformations were reviewed. FINDINGS: Moderate calcified plaque formation diffusely limits evaluation for stenosis. Negative for abdominal aortic aneurysm or dissection. Approximately 50% stenosis of the celiac artery origin from extrinsic compression/median arcuate ligament syndrome. Superior mesenteric artery patent without significant stenosis. Greater than 50% stenosis of bilateral renal artery origins. Bilateral iliac arteries are patent without evidence of significant stenosis. Multifocal stenosis of the superficial femoral arteries bilaterally, up to 70-80% stenosis of the distal right and greater than 90% stenosis of the mid left superficial femoral arteries. Bilateral profunda femoral arteries are patent. Popliteal arteries patent bilaterally with less than 50% stenosis. Difficult evaluation of the infrapopliteal vessels bilaterally secondary to bolus timing/density calcified vessels. Probable multifocal stenosis bilaterally. Subsegmental atelectasis in the lung bases. Pulmonary vascular congestion noted. Small to moderate volume pericardial effusion. Gallstones in the gallbladder. Heterogeneous appearance of the liver. Correlate for steatosis/process. The spleen, pancreas and adrenal glands appear unremarkable. No hydronephrosis. No evidence of bowel obstruction/colitis/appendicitis. No free air. No drainable fluid collection. Trace fluid in the pelvis. The urinary bladder not distended. Abnormal erosive changes in the L1/L2/L3 levels and disc spaces. No acute fracture. Degenerative changes in the feet/ankles. IMPRESSION: 1. Moderate calcified plaque formation diffusely limits evaluation for stenosis. 2. Approximately 50% stenosis of the celiac artery origin from extrinsic compression/median arcuate ligament syndrome. 3. Greater than 50% stenosis of bilateral renal artery origins. 4. Multifocal stenosis of the superficial femoral arteries bilaterally, up to 70-80% stenosis of the distal right and greater than 90% stenosis of the mid left superficial femoral arteries. 5. Difficult evaluation of the infrapopliteal vessels bilaterally secondary to bolus timing/density calcified vessels. Probable multifocal stenosis bilaterally. 6. Subsegmental atelectasis in the lung bases. Pulmonary vascular congestion noted. Small to moderate volume pericardial effusion. 7. Abnormal erosive changes in the L1/L2/L3 levels and disc spaces. Correlate for osteomyelitis/discitis. Follow-up with MRI as clinically relevant. 8. Cholelithiasis. ACT 112: Positive. There are findings on this exam that require communication between the performing entity and the patient following Patient Test Result Information Act ([place] ACT 112) guidelines. Electronically signed by Toy Monique 09-03-2024 5:44 PM
[2024-09-03] MEDS ORDERED: HYDROmorphone INJ 0.5 MG/0.5 ML SYR IV PRN (17:56)
[2024-09-03] MEDS ORDERED: ONDANSETRON INJ 2 MG/ML 2 ML VIAL IV PRN (17:56)
[2024-09-03] MEDS ORDERED: LORazepam 2 MG/1 ML VIAL IV PRN (17:56)
[2024-09-03] MEDS ORDERED: bisacodyL 10 MG SUPP PR STA (17:59)
[2024-09-03] MEDS ORDERED: GLYCOPYRROLATE 0.2 MG/ML VIAL IV PRN (17:59)
[2024-09-03] MEDS ORDERED: metroNIDAZOLE 500 MG/100 ML BAG IV SCH (18:00)
[2024-09-03] MEDS ORDERED: DOXYCYCLINE HYCLATE 100 MG in DEXTROSE 5% MINI-B 100 ML IV SCH (18:00)
[2024-09-03] MEDS ORDERED: CEFEPIME 1000MG 1,000 MG/10 ML SYR IV SCH (18:00)
--- NOTE | 2024-09-03 18:07 | CT Scan Report ---
Technique: Axial computed tomography images were obtained of the left upper arm after the administration of intravenous contrast according to the CT angiogram protocol. Sagittal and coronal reconstructions were obtained Findings: There is an apparent arteriovenous graft between the left axillary vein and the left brachial artery. The graft appears to be patent. There is an apparent varix arising from the left axillary vein proximal to the graft anastomosis, measuring 11 mm in diameter on image 163 of the axial series. There is no definite sign of arterial dissection or occlusion No fracture is identified. No subluxation or dislocation is seen. There is mild acromioclavicular and glenohumeral osteoarthritis. No focal osseous lesion is evident The visualized musculature appears unremarkable. No soft tissue mass or fluid collection is seen. No adenopathy is noted. No foreign body is evident The visualized left lung appears clear Impression: 1. Apparent patent AV graft in the left upper arm 2. 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 No definite sign of arterial occlusion or dissection 4. Mild left shoulder osteoarthritis Electronically signed by Erik Cheng 09-03-2024 6:07 PM
[2024-09-03] MEDS: VECURONIUM BROMIDE 10 MG VIAL IV ONE (18:11)
[2024-09-03] MEDS ORDERED: Nursing to Pharmacy Communication SCH (18:15)
[2024-09-03] MEDS: MIDAZOLAM HCL 1 MG/ML 2ML VIAL IV STA (18:22)
[2024-09-03] MEDS: VECURONIUM BROMIDE 10 MG VIAL IV STA (18:22)
[2024-09-03] MEDS: NOREPINEPHRINE/D5W 4 MG/250 ML PLCT IV SCH (18:22)
[2024-09-03] MEDS: VANCOMYCIN HCL 1,750 MG in SODIUM CHLORIDE 0.9% 500 ML IV ONE (18:22)
--- NOTE | 2024-09-03 18:29 | Critical Care Consultation ---
Date of Consultation September 03, 2024 Assessment & Plan (1) Acute hypoxic respiratory failure: (2) Shock: (3) Pericardial effusion: (4) ESRD (end stage renal disease) on dialysis: (5) Subglottic stenosis: (6) Cardiac arrest: Plan 79-year-old female with a history of end-stage renal disease, subglottic stenosis, MRSA wound infection of the lower extremity, asthma and significant peripheral vascular disease who presented to the hospital due to anemia and shortness of breath. Unfortunately she had cardiac arrest x 2 and signs of severe metabolic acidosis. She also had a moderate-sized pericardial effusion noted on CT of her chest and [id number]-[id number] echo. Pulmonary edema was noted on CT chest as well. After discussion with the patient's brother over the phone, decision was made to transition the patient to comfort measures only. This was also discussed with Dr. Goel who initiated the conversation with the patient's son over the phone. Comfort measures order set will be initiated and the patient will be extubated to comfort measures only. CRITICAL CARE TIME I have personally spent 97 minutes of critical care time in the direct management of this patient. This is a life/limb threatening event. This includes time spent evaluating patient, direct bedside care, chart review, placing orders, interpretation of diagnostic studies, discussion with consultants, patient, and family members, as well as other required patient management activities. This time is exclusive of all separately billable procedures, and teaching time and separate from and in addition to any other critical care service time. History of Present Illness Reason for Consultation: Cardiac arrest and severe acidosis Attending Physician: Chacho Goel MD History of Present Illness History was unobtainable from the patient as she was profoundly encephalopathic and had undergone resuscitative ACLS measures twice in the time span that I had seen her. History was obtained from chart review and from discussion with the hospitalist service. 79-year-old female with a history of prolonged QTc, end-stage renal disease on hemodialysis, chronic hypotension and subglottic stenosis who presented to the ER with shortness of breath. Patient was going to undergo a CT of her neck due to stridor identified by the ER and hospitalist physician. Prior to the CT of her chest, she became apneic and was found to have loss of pulses. Code purple was called and then CODE BLUE was called. Upon my arrival to the CT department, he was already undergoing ACLS protocol with chest compressions, bag valve mask ventilation and had received a dose of epinephrine. Eventually, ROSC was obtained and I was able to successfully intubate the patient with a size 6 endotracheal tube. She was given fentanyl to help with pain control. She was able to maintain blood pressures without the addition of vasopressors. Qzjqf-[id number]-drns cardiac ultrasound revealed a moderate-sized pericardial effusion. Patient underwent a CT head, CT neck, CT of her left arm, CT chest and CTA of her abdomen and lower extremities. CT chest did not reveal any evidence of pulmonary embolism. Diffuse pulmonary edema was noted. Moderate size pericardial effusion was seen. CT head was negative for acute intracranial disease. 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 CT neck did not reveal any acute pathology. Patient was then transferred to the ICU and was receiving a platelet transfusion. Packed RBCs were also ordered along with fluid boluses. Patient only had peripheral IVs in place and we are prepping for an emergent central line to be placed in her right IJ. Patient was on a continuous fentanyl infusion and remained very agitated. She does not appear to be responsive to any commands. Rocuronium was given due to concerns of safety related to placement of a central line with the patient being severely agitated despite the use of continuous analgesics. Patient was also mildly hypotensive with a MAP of 60. While prepping the central line, patient had lost pulses again and immediately CPR was started by me. She was given 1 mg of IV epinephrine via peripheral IV and an intraosseous line was placed. She was also given 2 A of bicarbonate. ROSC was obtained. [id number] ultrasound was again performed which revealed a moderate pericardial effusion. Family (Tomas Belloel)was contacted by Dr. Goel and the patient's brother requested that the patient be transition to comfort measures only. Further resuscitative measures were discontinued and the patient was continued on a fentanyl infusion. I then called the brother myself as well who is the DPOA and confirmed with him the transition to comfort measures only. Her brother Tomas lives in [place]. He also indicated that she has another brother in [place] who has Parkinson's disease and is unable to make decisions. She also has a sister who is "mentally handicapped" and lives in a nursing facility. Patient does not have any children. Allergies Allergy/AdvReac Type Severity Reaction Status Date / Time arformoterol [From Brovana] Allergy Intermediate asthma Verified 09/03/24 15:28 flare up bacitracin Allergy Intermediate RASH Verified 09/03/24 15:28 budesonide Allergy Intermediate ITCHING IN Verified 09/03/24 15:28 THROAT AND EARS AFTER USE calamine Allergy Intermediate RASH Verified 09/03/24 15:28 codeine Allergy Intermediate Hallucinati Verified 09/03/24 15:28 ng neomycin Allergy Intermediate RASH Verified 09/03/24 15:28 Penicillins Allergy Intermediate HIVES/FLUSH Verified 09/03/24 15:28 ING polymyxin B Allergy Intermediate RASH Verified 09/03/24 15:28 shrimp Allergy Intermediate "JUST Verified 09/03/24 15:28 SHRIMP" - HIVES silver Allergy Intermediate Unknown Verified 09/03/24 15:28 NSAIDS (Non-Steroidal Allergy Mild "felt like Verified 09/03/24 15:28 Anti-Inflamma I was swallowing a burning coal" Sulfa (Sulfonamide Allergy Unknown UNKNOWN Verified 09/03/24 15:28 Antibiotics) REACTION - "HAD ON CHART SINCE ." amlodipine AdvReac Severe "extreme Verified 09/03/24 15:28 water retention" thimerosal AdvReac Severe TACHYCARDIA Verified 09/03/24 15:28 chondroitin sulfate A AdvReac Intermediate AFFECTS Verified 09/03/24 15:28 EYES CHLORAHEXADINE Allergy Severe BLISTERY, Uncoded 09/03/24 15:28 RASH Home Medications Medication Instructions Recorded Confirmed Type aspirin 81 mg tablet,delayed 81 mg PO HS 04/17/18 09/03/24 History release (Shannan Low Dose Aspirin) bisacodyl 5 mg tablet,delayed 5 mg PO QPM PRN Constipation 04/17/18 09/03/24 History release (Dulcolax (bisacodyl)) brinzolamide 1 %-brimonidine 0.2 % 1 drp ophthalmic (eye) BID 04/17/18 09/03/24 History eye drops,suspension (Simbrinza) calcium carbonate (Tums) 300 mg PO DAILY PRN Acid Reflux 04/17/18 09/03/24 History cholecalciferol (vitamin D3) 25 1,000 unit PO 5XWK 04/17/18 09/03/24 History mcg (1,000 unit) capsule gelatin 600 mg capsule 1 tab PO BID 04/17/18 09/03/24 History polyethylene glycol 3350 17 1 dose PO DAILY PRN Constipation 04/17/18 09/03/24 History gram/dose oral powder (Miralax) insulin aspart U-100 100 unit/mL 1 sliding scale dose subcut 06/05/23 09/03/24 History subcutaneous cartridge (Novolog USEASDIRECTD PenFill U-100 Insulin aspart) insulin glargine 100 unit/mL (3 4 - 7 unit subcut QPM 06/05/23 09/03/24 History mL) subcutaneous pen (Lantus Solostar U-100 Insulin) loratadine 10 mg tablet (Claritin) 5 mg PO HS 06/05/23 09/03/24 History fluticasone 100 mcg-salmeterol 50 1 inh inhalation BID 12/13/23 09/03/24 History mcg/dose blistr powdr for inhalation (Advair Diskus) acetaminophen 325 mg capsule 325 mg PO QID PRN Pain 07/22/24 09/03/24 History albuterol sulfate 90 mcg/actuation 2 puff inhalation DIRECTED PRN 09/03/24 09/03/24 History aerosol inhaler Shortness Of Breath Or Wheezing carboxymethylcellulose sodium 1 % 1 drp ophthalmic (eye) BID 09/03/24 09/03/24 History eye liquid gel drops docusate sodium 100 mg capsule 100 mg PO DAILY PRN Constipation 09/03/24 09/03/24 History (Colace) famotidine 40 mg tablet 40 mg PO QPM 09/03/24 09/03/24 History gabapentin 100 mg capsule 100 mg PO DAILY 09/03/24 09/03/24 History levothyroxine 150 mcg tablet 150 mcg PO DAILYBB 09/03/24 09/03/24 History linezolid 600 mg tablet 600 mg PO BID 09/03/24 09/03/24 History magnesium oxide 400 mg PO DIRECTED 09/03/24 09/03/24 History midodrine 5 mg tablet 5 - 10 mg PO BID 09/03/24 09/03/24 History rwhsohsx-xcb-rikao ac 400 1 tab PO DAILY 09/03/24 09/03/24 History mcg-calcium carb 500 mg-vit K1 20 mcg tablet (Women's 50 Plus Multivitamin) psyllium 1 tbsp PO DAILY PRN Constipation 09/03/24 09/03/24 History sennosides 8.6 mg-docusate sodium 1 tab-cap PO BID PRN Constipation 09/03/24 09/03/24 History 50 mg tablet (Senokot-S) sevelamer carbonate 800 mg tablet 1,600 mg PO TID 09/03/24 09/03/24 History sodium chloride, sodium 1 ea DIRECTED PRN Dry Nasal 09/03/24 09/03/24 History bicarb-nasal rinse squeeze bottle Passages with packet ([place] Sinus Rinse with packet) Patient History Medical History Artificial cardiac pacemaker Heart attack History of anesthesia reaction Received Sodium Pentothal during wisdom tooth removal...pt states she woke up screaming. History of anesthesia reaction During knee sx 40yrs ago, per pt "they almost lost me", pt unsure what anesthesia was used Osteoarthritis AV fistula L arm; not used History of esophageal dilatation GERD (gastroesophageal reflux disease) Hypothyroidism Diabetes mellitus, type 2 Anemia Diabetic retinopathy Glaucoma Claustrophobia Hypertension Cardiac murmur Aortic stenosis Asthma inhaler prn Surgical History Aortic valve replaced Status post biopsy of kidney benign History of colonoscopy History of esophagogastroduodenoscopy (EGD) History of tooth extraction wisdom teeth Status post medial meniscus repair right History of tonsillectomy and adenoidectomy History of bilateral cataract extraction Status post laser trabeculoplasty of eye bilt Family History Mother Family history of esophageal cancer Social History Smoking Status: Never smoker Second Hand Exposure: Yes (father/mother smoked); Do You Dip or Chew Tobacco: No; Hx Alcohol Use: Yes Alcohol type: wine Alcohol Intake Frequency Comment: OCCASIONALLY, "NOT VERY OFTEN" Hx Substance Use: No Preferred Language: Danish Communication Ability: Effective Visual Impairment: Partially Limited Hearing Ability: Normal 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 Cade- Licensed Loan Officer. Dr. Bone Feels Safe at Home: Yes Diet: diabetic and low salt during the past year weight has: remained stable Assistive Devices: Walker Review of Systems Review of Systems: Unobtainable due to cognitive status Physical Exam Physical Exam: Constitutional: Patient in severe distress with apneic respirations and mottled skin. Eyes: Pupils are equal round and reactive to light. Conjunctivae are normal. Anicteric sclera. Ears nose, mouth and throat: Mallampati class 2. Normal posterior oropharynx. Uvula is midline. Neck: Trachea is midline. Visual inspection is normal. Respiratory: Diffuse crackles and rhonchi. Tachypneic. Cardiovascular: Regular rate and rhythm. No murmurs. 1+ edema in the lower extremities. Gastrointestinal: Normal bowel sounds, soft, nontender and nondistended. No hepatosplenomegaly noted. Musculoskeletal: No cyanosis. Patient is able to move all extremities. Strength is 5 out of 5 in the upper and lower extremities. Skin: Skin mottling noted throughout all extremities with bilateral lower extremity wounds noted. Neurologic: Patient moving her upper extremities spontaneously. Minimal movement in lower extremities. Psychiatric: Unable to assess. Results & Data Results & Data Vital Signs (Past 12 Hours) Vital Signs Temp Pulse Pulse Resp BP BP Pulse Ox 09/03/24 17:33 36.6 C 19 113/58 L 96 09/03/24 17:28 34.7 C L 75 21 113/58 L 99 09/03/24 17:10 80 16 100 09/03/24 15:07 70 20 106/50 L 100 09/03/24 13:25 72 09/03/24 13:08 97 09/03/24 12:59 09/03/24 12:59 74 22 99/40 L 98 09/03/24 12:59 O2 Del Method FiO2 09/03/24 17:33 09/03/24 17:28 09/03/24 17:10 100 09/03/24 15:07 Room Air 09/03/24 13:25 09/03/24 13:08 Room Air 09/03/24 12:59 Room Air 03/12/25 12:59 Room Air 09/03/24 12:59 Room Air Coding Level of Care Code 76464 Prolonged Care (int'l) Diagnoses Acute hypoxic respiratory failure J96.01 Shock R57.9 Pericardial effusion I31.39 ESRD (end stage renal disease) on dialysis N18.6; Z99.2 Subglottic stenosis J38.6 Cardiac arrest I46.9 Time Spent (min) 97
[2024-09-03 18:50] VITALS: BP 94/39; PULSE 70; RESP 16; TEMP 94.5
--- OUTSIDE RECORDS SUMMARY | 2024-09-03 20:17 | External Medical Summary | Summary of Care ---
Author Name Unknown Organization [facility] Address [address] [place] [address] Phone [phone] Care Team Providers Care Beef Ribber Name Role Phone Amada Vasquez MD Primary Care Provider [phone] Reason for Visit * Reason Onset Date Comments Advice 09/02/2024 Encounter Details Date Type Department Care Team (Late st Contact Info) Description 09/02/2024 Telephone Access Center, [place] [address] [facility] *DO NOT REMOVE THIS DEPARTMENT* [place] [address] Services, Scheduling [address] [place] [address] Advice Allergies Active Allergy Reactions Criticality Noted Date Comments Adhesive Tape 05/20/2019 Amlodipine 08/20/2019 Arformoterol Other (Please comment) 11/02/2015 Flare of asthma Budesonide Itching 03/04/2014 Pt reports itching in throat and ears after use. Calamine 11/16/1999 Chlorhexidine Rash 05/15/2024 Chondroitin 05/27/2010 Affect eyes Codeine Other (Please comment) 01/28/2019 nightmares Ipratropium [place] Hfa Cough 11/02/2015 Penicillins 11/16/1999 Statins Edema Other 05/08/2018 Severe swelling throughout body Sulfa Antibiotics 11/16/1999 Thimerosal (Thiomersal) Hives 09/14/2010 Neomycin-Bacitracin Zn-Polymyx Rash 09/14/2010 documented as of this encounter (statuses as of 09/02/2024) Medications GELATIN 600 MG PO CAPS Take 250 mg by mouth daily. Active ONE-A-DAY 50 PLUS PO TABS 08/24/19 13 Active BLOOD PRESSURE MONITOR/L CUFF MISCIndications:Pr oteinuria,HTN, goal below 130/80 for home bp log 1 Device 0 10/01/19 13 Active Additional Information Patient not taking.Reported on 05/15/2024 ASPIRIN 81 MG PO TABSIndications:Ki dney disease, chronic, stage IV (GFR 15-29 ml/min) ([facility]),Nephrotic syndrome 1 TABLET DAILY 30 Tab 5 02/05/20 14 Active loratadine (CLARITIN) 10 MG TabletIndications: Tracheitis, chronic, with laryngitis,Asthma with severity to be determined,Chronic frontal sinusitis 1/2 tab daily 30 Tab 5 11/03/19 16 Active famotidine (PEPCID) 20 MG TabletIndications: Gastroesophageal reflux disease, esophagitis presence not specified Take 1 Tab by mouth 2 times a day. 180 Tab 3 07/12/19 17 Active Additional Information Patient taking differently:20 mg OralDaily(Non-Specified), Reported on 05/15/2024 polyethylene glycol 3350 (MIRALAX) 119 gram POWD [...] given to our office. 1 Each 1 01/29/20 19 Active Sevelamer HCl 800 MG Oral Tablet (RENAGEL) TAKE ONE TABLET BY MOUTH THREE TIMES DAILY WITH MEALS 270 Tab 2 04/26/20 20 Active Additional Information Patient taking differently: Taking twice per day, Reported on 05/15/2024 OneTouch Ultra Blue In Vitro Strip (Glucose Blood)Indications: Proliferative diabetic retinopathy of both eyes without macular edema associated with diabetes mellitus due to underlying condition ([facility]),Type 2 diabetes mellitus with diabetic nephropathy, with long-term current use of insulin ([facility]) TEST BLOOD SUGAR TWICE DAILY. Dx: E11.21 200 Strip 3 06/21/20 Active Additional Information Patient not taking.Reported on 05/15/2024 OneTouch UltraSoft LancetsIndications :Type 2 diabetes mellitus with diabetic nephropathy, with long-term current use of insulin ([facility]),Proliferativ e diabetic retinopathy of both eyes without macular edema associated with diabetes mellitus due to underlying condition ([facility]) Use to test blood sugar twice daily 200 Each 3 06/21/20 Active Additional Information Patient not taking.Reported on 05/15/2024 BD Pen Needle Short U/F 31G X 8 MM (Insulin Pen Needle)Indications :Type 2 diabetes mellitus with hemoglobin A1c goal of less than 7.0% ([facility]) USE 4 TIMES DAILY DIRECTED 100 Each 5 11/14/19 21 Active Mucinex 600 MG Oral Tablet Extended Release 12 Hour (guaiFENesin ER)Indications:Chr onic frontal sinusitis Take 1 Tablet by mouth 2 times a day as needed for Congestion. Take with plenty of water. Do not cut, crush or chew 40 Tab 2 11/17/19 21 Active Montelukast Sodium 10 MG Oral Tablet (Singulair) TAKE 1 TABLET BY MOUTH EVERY EVENING 90 Tablet 3 06/28/19 24 Active Fluticasone-Salmet sirena 250-50 MCG/ACT Inhalation Aerosol Powder Breath Activated (Advair Diskus)Indications :Mild intermittent asthma with exacerbation Inhale 1 Puff by mouth in the morning and 1 Puff before bedtime. 1 Each 5 12/04/19 Active Additional Information Patient not taking.Reported on 05/15/2024 Midodrine HCl 2.5 MG Oral Tablet (Proamatine) Take 2 Tablets by mouth. Sunday, Sunday, and Sunday03/29/20 24 Active Simbrinza 1-0.2 % Ophthalmic Suspension (Brinzolamide-Brim onidine)Indication s:Diabetic macular edema ([facility]) INSTILL ONE DROP INTO RIGHT EYE TWICE DAILY 10 mL 12 04/10/20 24 Active Docusate Sodium 100 MG Oral Capsule (Colace) Take 1 Capsule by mouth in the morning and 1 Capsule before bedtime. Active Sennosides 8.6 MG Oral Tablet (Senokot) Take 1 Tablet by mouth daily as needed for Constipation. Active Gabapentin 100 MG Oral Capsule (Neurontin)Indicat ions:Hip pain, right,Generalized osteoarthritis Take 1 Capsule by mouth in the morning and 1 Capsule at noon and 1 Capsule before bedtime. 90 Capsule 3 05/15/20 24 Active Albuterol Sulfate HFA 108 (90 Base) MCG/ACT Inhalation Aerosol SolutionIndication s:Mild intermittent asthma with exacerbation Inhale 1 Puff by mouth every 4 hours as needed for Wheezing. 18 g 5 05/15/20 24 Active Dexcom G7 Adjunct Teacher DeviceIndications: Type 2 diabetes mellitus with diabetic nephropathy, with long-term current use of insulin ([facility]),Type 2 diabetes mellitus with hemoglobin A1c goal of less than 8.0% ([facility]) Use as directed. 1 Each 06/06/20 24 Active Dexcom G7 SensorIndications: Type 2 diabetes mellitus with diabetic nephropathy, with long-term current use of insulin ([facility]),Type 2 diabetes mellitus with hemoglobin A1c goal of less than 8.0% ([facility]) Use as directed every 10 days. 9 Each 3 06/06/20 24 Active Levothyroxine Sodium 150 MCG Oral Tablet (Levoxyl)Indicatio ns:Acquired hypothyroidism Take 1 Tablet by mouth in the morning. (at least 30 min prior to breakfast or other meds). 90 Tablet 2 07/23/19 25 Active Insulin Glargine Solostar 100 UNIT/ML Subcutaneous Solution Pen-injector (Lantus SoloStar)Indicatio ns:Type 2 diabetes mellitus with diabetic nephropathy, with long-term current use of insulin ([facility]),Type 2 diabetes mellitus with hemoglobin A1c goal of less than 7.0% ([facility]) Inject 6 Units under the skin daily. 15 mL 3 08/26/19 25 Active documented as of this encounter (statuses as of 09/02/2024) Active Problems Problem Noted Date Diagnosed Date Constipation 05/15/2024 Anemia of chronic renal failure, stage 5 [...] breakdown of skin 08/20/2019 Mild intermittent asthma without complication Hypertensive heart and kidne y disease with [...] condition 03/16/2015 HTN, goal below 140/90 09/30/2012 DYSLIPIDEMIA, GOAL LDL BELOW 100 06/10/2009 Overview (06/10/2009): Per Lipid Taxonomy. Generalized OA Statins contraindicated documented as of this encounter (statuses as of 09/02/2024) Resolved Problems Problem Noted Date Diagnosed Date [...] goal of less than 7.5% 04/29/2014 11/21/2017 Overview (10/25/2015): ICD-10 update of inactive term Kidney disease, chronic, sta ge IV (GFR 15-29 ml/min) 01/09/2014 11/15/2017 DM type 2 causing CKD stage 3 12/31/2013 01/09/2014 Severe aortic stenosis 12/16/201307/12 Diabetic retinopathy 03/05/2013 015 HTN, goal below 140/80 02/12/201209/30 Overview: Per HTN Protocol #27. HTN, GOAL BELOW 130/80 07/22/200902/14 Overview (07/22/2009): Per HTN Taxonomy. Type 2 diabetes mellitus wit h hemoglobin A1c goal of less than 7.0% 04/22/2009 04/29/2014 Overview (10/19/2015): Per Diabetes Taxonomy. ICD-10 update of inactive term dysplastic nevi 03/14/2002 02/13/2018 HYPERTENSION NOS 04/30/2009 Overview (04/30/2009): Per HTN Taxonomy PURE HYPERCHOLESTEROLEM 05/25 Overview (06/10/2009): Per Lipid Taxonomy. Type 2 diabetes mellitus wit h hemoglobin A1c goal of less than 7.0% 04/22/2009 Overview (10/19/2015): Per Diabetes Taxonomy. ICD-10 update of inactive term Herpes zoster 02/13/2018 HTN, goal below 140/90 07/22 Overview (07/22/2009): Per HTN Taxonomy. documented as of this encounter (statuses as of 09/02/2024) Immunizations Name Administration Dates Next Due COVID-19 mRNA, LNP-s, No Pre serve, 2-Dose Series ([employer]) 12/16/2021,05/28/2021,08/25/2020,07/26 COVID-19, MRNA-LNP, PF, 30 M CG/0.3 mL, 12 YRS AND ABOVE, IM (PFIZER-Comirnaty) 04/06/2023 COVID-19, MRNA-LNP, PF, 50 M CG/0.5 mL, 12 YRS AND ABOVE, IM (MODERNA-Spikevax) 03/08/2024 Hepatitis B, 20+ yrs 09/14/2015,04/22/2015,03/16 Influenza, Whole Virus 06/05/2005 Pneumococcal Conjugate Vacc, 13 Valent (Prevnar) 02/13/2018 Pneumococcal Conjugate Vacci ne, 7 Valent 04/25/2007 Pneumococcal Polysaccharide PPV23 (Pneumovax) 11/20/2013 Seasonal Influenza Vac., MDV , IM, 0.5 mL (Fluzone) 04/06/2023,03/16/2015,04/29/2014,12/2011,03/22/2011,03/18/2010,03/31/20 09,04/25/2007,05/16/2006,04/08/2003 Seasonal Influenza Virus Vac cine, Unspecified Formulation [...] 1-2 times yearly PHQ-2 Answer Date Recorded PHQ Adult Total Score 2 06/28/2023 Hunger Vital Sign Answer Date Recorded Worried About Running Out of Food in the Last Ye ar Never true 08/20/2019 Ran Out of Food in the Last Year Never true 08/20/2019 Comments No Sex and Gender Information Value Date Recorded Sex Assigned at Female 12/23/2018 1:00 PM EDT Legal Sex Female 7:13 AM EST Gender Identity Female 12/23/2018 1:00 PM EDT Sexual Orientation Straight 12/23/2018 1: 00 PM EDT 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 Pt is unsure what dose she is to take on dialysis vs non dialysis days. She is aware that she needs to speak with her nurse at [facility] as they will have the most up to date records of her medications. She verbalized understanding. * Telephone Encounter - Narcisa Shi OSA - 09/02/2024 8:16 AM EDT Pt called in she sees Dr Yan at [facility] and she is having high blood pressure issues . She is calling to discuss what to do with her medication . Please call to discuss documented in this encounter Plan of Treatment Upcoming Encounters Date Type Department Care Team (Late st Contact Info) Description 09/25/2024 9:00 AM EDT Cardiac Studies Cardiac Studies, [address] [place] [address] 10/07/2024 1:30 PM EDT Office Visit Otolaryngology/Head & Neck/Facial Plastic Surgery [address] [facility] [place] [address] Dev Johnson MD [address] [facility] [place] [address] 10/09/2024 10:15 AM EDT Office Visit Ophthalmology, [facility] [address] [place] [address] Obed Bone DO [address] [place] [address] 10/14/2024 9:40 AM EDT Office Visit General Internal Medicine [facility] [address] [facility] [place] [address] Amada Vasquez MD [address] [facility] [place] [address] 02/24/2025 8:30 AM EDT Office Visit Cardiology, [facility] [address] [place] [address] Anitra Smalls CRNP [address] [place] [address] Health Maintenance Due Date Last Done Comments Adult Wellness Visit 2011 Nephrology Referral 08/16/2013 08/16/2012 Diabetic Eye Exam 11/23/2021 11/23/2020, , 09/07/2020, Additional history exists Depression Screening 06/28/2024 06/28/2023 PTH 07/10/2024 07/10/2023, 1207/2019, 11/11/2019, Additional history exists Phosphate 07/10/2024 07/10/2023, 07/2020, 10/12/2020, Additional history exists COVID-19 Vaccine ( season) 2024 03/08/2024, 04/06/2023, 04/06/2023, Additional history exists HbA1c 11/12/2024 05/15/2024, 07/0 02/2024, 07/10/2023, Additional history exists Diabetic Foot Exam 11/27/2024 11/28/2023, 1 08/22/2019, 08/20/2019, Additional history exists Hgb 04/10/2025 04/10/2024, 07/0 02/2024, 07/10/2023, Additional history exists TSH 05/15/2025 05/15/2024, 03/25, 02/05/2024, Additional history exists Mammogram 02/04/2026 02/05/2024, 02/23, 07/29/2015, Additional history exists Hepatitis B Vaccine Completed 09/14/2015, 04/22/2015, 03/16/2015 Pneumococcal Vaccine: 50+ Years Completed 02/13/2018, 11/20/2013 Colonoscopy Discontinued 04/22/2018, [...] on patient's age to complete this topic Meningitis B Vaccine (Bexsero/Trumemba) Aged Out No longer eligible based on patient's age to complete this topic documented as of this encounter Medical Devices Not on filedocumented as of this encounter Care Teams Beef Ribber Relationship Specialty Start Date End Date Amada Vasquez MD [address] [facility] [place] [address] PCP - General Internal Medicine 01/14/24 documented as of this encounter
--- OUTSIDE RECORDS SUMMARY | 2024-09-03 20:18 | External Medical Summary | Summary of Care ---
Author Name Unknown Organization [facility] Address [address] [place] [address] Phone [phone] Care Team Providers Care Flame Cutting Machine Operator Helper Name Role Phone Amada Vasquez MD Primary Care Provider [phone] Reason for Visit * Reason Onset Date Comments Advice 08/28/2024 Encounter Details Date Type Department Care Team (Late st Contact Info) Description 08/28/2024 Telephone Access Center, [place] [address] [facility] *DO NOT REMOVE THIS DEPARTMENT* [place] [address] Services, Scheduling [address] [place] [address] Advice Allergies Active Allergy Reactions Criticality Noted Date Comments Adhesive Tape 05/20/2019 Amlodipine 08/20/2019 Arformoterol Other (Please comment) 11/02/2015 Flare of asthma Budesonide Itching 03/04/2014 Pt reports itching in throat and ears after use. Calamine 11/16/1999 Chlorhexidine Rash 05/15/2024 Chondroitin 05/27/2010 Affect eyes Codeine Other (Please comment) 01/28/2019 nightmares Ipratropium [place] Hfa Cough 11/02/2015 Penicillins 11/16/1999 Statins Edema Other 05/08/2018 Severe swelling throughout body Sulfa Antibiotics 11/16/1999 Thimerosal (Thiomersal) Hives 09/14/2010 Neomycin-Bacitracin Zn-Polymyx Rash 09/14/2010 documented as of this encounter (statuses as of 08/28/2024) Medications GELATIN 600 MG PO CAPS Take 250 mg by mouth daily. Active ONE-A-DAY 50 PLUS PO TABS 08/24/19 13 Active BLOOD PRESSURE MONITOR/L CUFF MISCIndications:Pr oteinuria,HTN, goal below 130/80 for home bp log 1 Device 0 10/01/19 13 Active Additional Information Patient not taking.Reported on 05/15/2024 ASPIRIN 81 MG PO TABSIndications:Ki dney disease, chronic, stage IV (GFR 15-29 ml/min) ([facility]),Nephrotic syndrome 1 TABLET DAILY 30 Tab 5 [...] mellitus due to underlying condition ([facility]),Type 2 diabetes mellitus with diabetic nephropathy, with long-term current use of insulin ([facility]) TEST BLOOD SUGAR TWICE DAILY. Dx: E11.21 200 Strip 3 06/21/20 Active Additional Information Patient not taking.Reported on 05/15/2024 OneTouch UltraSoft LancetsIndications :Type 2 diabetes mellitus with diabetic nephropathy, with long-term current use of insulin ([facility]),Proliferativ e diabetic retinopathy of both eyes without macular edema associated with diabetes mellitus due to underlying condition ([facility]) Use to test blood sugar twice daily 200 Each 3 06/21/20 Active Additional Information Patient not taking.Reported on 05/15/2024 BD Pen Needle Short U/F 31G X 8 MM (Insulin Pen Needle)Indications :Type 2 diabetes mellitus with hemoglobin A1c goal of less than 7.0% ([facility]) USE 4 TIMES DAILY DIRECTED 100 Each [...] Ophthalmic Suspension (Brinzolamide-Brim onidine)Indication s:Diabetic macular edema ([facility]) INSTILL ONE DROP INTO RIGHT EYE TWICE [...] g 5 05/15/20 24 Active Dexcom G7 Qm Consultant DeviceIndications: Type 2 diabetes mellitus with diabetic nephropathy, with long-term current use of insulin ([facility]),Type 2 diabetes mellitus with hemoglobin A1c goal of less than 8.0% ([facility]) Use as directed. 1 Each 06/06/20 24 Active Dexcom G7 SensorIndications: Type 2 diabetes mellitus with diabetic nephropathy, with long-term current use of insulin ([facility]),Type 2 diabetes mellitus with hemoglobin A1c goal of less than 8.0% ([facility]) Use as directed every 10 days. 9 [...] long-term current use of insulin ([facility]),Type 2 diabetes mellitus with hemoglobin A1c goal of less than 7.0% ([facility]) Inject 6 Units under the skin daily. 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 Pt's sister answered her phone and stated pt was not available. Called alternate call number Jody and she states that she does not speak with pt very often. Will relay messageto Dr Yan and she will follow up with [facility] Dialysis nurse. * Telephone Encounter - Oli Petersen OSA - 08/28/2024 10:03 AM EST Patient was advised by wound care to reach out to Dr. Yan in regards to a bad reaction she hadafter receiving dialysis. Per patient she is on an antibiotic that might've caused the reaction. Asking to speak with Dr. Yan regarding this. [phone] documented in this encounter Plan of Treatment Upcoming Encounters Date Type Department Care Team (Late st Contact Info) Description 10/09/2024 10:15 AM EDT Office Visit Ophthalmology, [facility] [address] [place] [address] Obed Bone DO [address] [place] [address] 10/14/2024 9:40 AM EDT [facility] [address] [place] [address] Amada Vasquez MD [address] [place] [address] Health Maintenance Due Date Last Done Comments Adult Wellness Visit 2011 Nephrology Referral 08/16/2013 08/16/2012 Diabetic Eye Exam 11/23/2021 11/23/2020, , 09/07/2020, Additional history exists Depression Screening 06/28/2024 06/28/2023 PTH 07/10/2024 07/10/2023, 12/0 07/2019, 11/11/2019, Additional history exists Phosphate 07/10/2024 07/10/2023, 06/07/2020, 10/12/2020, Additional history exists COVID-19 Vaccine ( [...] filedocumented as of this encounter Care Teams Flame Cutting Machine Operator Helper Relationship Specialty Start Date End Date Amada Vasquez MD [address] [place], [place] [address] PCP - General Internal Medicine 01/14/24 documented as of this encounter
--- OUTSIDE RECORDS SUMMARY | 2024-09-03 20:18 | External Medical Summary | Summary of Care ---
Author Name Unknown Organization [facility] Address [address] [place] [address] Phone [phone] Care Team Providers Care Rigger Third Name Role Phone Amada Vasquez MD Primary Care Provider Reason for Visit * Reason Onset Date Comments Advice 08/28/2024 Encounter Details Date Type Department Care Team (Late st Contact Info) Description 08/28/2024 Telephone Access Center, [place] [address] [facility] *DO NOT REMOVE THIS DEPARTMENT* [place] [address] Services, Scheduling [address] [place] [address] Advice Allergies Active Allergy Reactions Criticality Noted Date Comments Adhesive Tape 05/20/2019 Amlodipine 08/20/2019 Arformoterol Other (Please comment) 11/02/2015 Flare of asthma Budesonide Itching 03/04/2014 Pt reports itching in throat and ears after use. Calamine 11/16/1999 Chlorhexidine Rash 05/15/2024 Chondroitin 05/27/2010 Affect eyes Codeine Other (Please comment) 01/28/2019 nightmares Ipratropium [place] [facility]fa Cough 11/02/2015 Penicillins 11/16/1999 Statins Edema [...] stage IV (GFR 15-29 ml/min) ([facility]),Nephrotic syndrome 1 TABLET DAILY 30 Tab [...] mellitus due to underlying condition ([facility]),Type 2 diabetes mellitus with diabetic nephropathy, with long-term current use of insulin ([facility]) TEST BLOOD SUGAR TWICE DAILY. Dx: E11.21 200 Strip 3 06/21/20 Active Additional Information Patient not taking.Reported on 05/15/2024 OneTouch UltraSoft LancetsIndications :Type 2 diabetes mellitus with diabetic nephropathy, with long-term current use of insulin ([facility]),Proliferativ e diabetic retinopathy of both eyes without macular edema associated with diabetes mellitus due to underlying condition ([facility]) Use to test blood sugar twice daily 200 Each 3 06/21/20 Active Additional Information Patient not taking.Reported on 05/15/2024 BD Pen Needle Short U/F 31G X 8 MM (Insulin Pen Needle)Indications :Type 2 diabetes mellitus with hemoglobin A1c goal of less than 7.0% ([facility]) USE 4 TIMES DAILY DIRECTED 100 Each [...] Ophthalmic Suspension (Brinzolamide-Brim onidine)Indication s:Diabetic macular edema ([facility]) INSTILL ONE DROP INTO RIGHT EYE TWICE [...] g 5 05/15/20 24 Active Dexcom G7 Accelerator Operator DeviceIndications: Type 2 diabetes mellitus with diabetic nephropathy, with long-term current use of insulin ([facility]),Type 2 diabetes mellitus with hemoglobin A1c goal of less than 8.0% ([facility]) Use as directed. 1 Each 06/06/20 24 Active Dexcom G7 SensorIndications: Type 2 diabetes mellitus with diabetic nephropathy, with long-term current use of insulin ([facility]),Type 2 diabetes mellitus with hemoglobin A1c goal of less than 8.0% ([facility]) Use as directed every 10 days. 9 [...] long-term current use of insulin ([facility]),Type 2 diabetes mellitus with hemoglobin A1c goal of less than 7.0% ([facility]) Inject 6 Units under the skin daily. 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 Pt's sister answered her phone and stated pt was not available. Called alternate call number Jody and she states that she does not speak with pt very often. Will relay messageto Dr Yan and she will follow up with [facility] Dialysis nurse. * Telephone Encounter - Oli Petersen OSA - 08/28/2024 10:03 AM EST Patient was advised by wound care to reach out to Dr. Yan in regards to a bad reaction she hadafter receiving dialysis. Per patient she is on an antibiotic that might've caused the reaction. Asking to speak with Dr. Yan regarding this. [phone] documented in this encounter Plan of Treatment Upcoming Encounters Date Type Department Care Team (Late st Contact Info) Description 10/09/2024 10:15 AM EDT Office Visit Ophthalmology, [facility] [address] [place] [address] Obed Bone DO [address] [place] [address] 10/14/2024 9:40 AM EDT Office Visit [facility] Internal [facility] [address] [place] [address] Amada Vasquez MD [address] [place] [address] Health Maintenance Due Date Last Done Comments [...] filedocumented as of this encounter Care Teams Rigger Third Relationship Specialty Start Date End Date Amada Vasquez MD [address] [place], [place] [address] PCP - General Internal Medicine 01/14/24 documented as of this encounter
--- OUTSIDE RECORDS SUMMARY | 2024-09-03 20:18 | External Medical Summary | Summary of Care ---
Author Name Unknown Organization [facility] Address [address] [place] [address] Phone [phone] Care Team Providers Care Electrical Engineering Manager Name Role Phone Amada Vasquez MD Primary Care Provider [phone] Encounter Details Date Type Department Care Team (Late st Contact Info) Description 08/31/2024 Orders Only Nephrology, [place] [place] [address] [place] [address] Antionette Yan MD [address] [place] [address] Hypotension, unspecified hypotension type*; ESRD (end stage renal disease) ([facility]) Allergies Active Allergy Reactions Criticality Noted Date Comments Adhesive Tape 05/20/2019 Amlodipine 08/20/2019 Arformoterol Other (Please comment) 11/02/2015 Flare of asthma Budesonide Itching 03/04/2014 Pt reports itching in throat and ears after use. Calamine 11/16/1999 Chlorhexidine Rash 05/15/2024 Chondroitin 05/27/2010 Affect eyes Codeine Other (Please comment) 01/28/2019 nightmares Ipratropium [place] Hfa Cough 11/02/2015 Penicillins 11/16/1999 Statins Edema Other 05/08/2018 Severe swelling throughout body Sulfa Antibiotics 11/16/1999 Thimerosal (Thiomersal) Hives 09/14/2010 Neomycin-Bacitracin Zn-Polymyx Rash 09/14/2010 documented as of this encounter (statuses as of 08/31/2024) Medications GELATIN 600 MG PO CAPS Take [...] Puff before bedtime. 1 Each 5 12/04/19 24 Active Additional Information Patient not taking.Reported on [...] g 5 05/15/20 24 Active Dexcom G7 Insurance Policy Issue Clerk DeviceIndications: Type 2 diabetes mellitus with diabetic [...] as of this encounter (statuses as of 08/31/2024) Active Problems Problem Noted Date Diagnosed Date [...] as of this encounter (statuses as of 08/31/2024) Resolved Problems Problem Noted Date Diagnosed Date [...] as of this encounter (statuses as of 08/31/2024) Immunizations Name Administration Dates Next Due COVID-19 mRNA, LNP-s, No Pre serve, 2-Dose Series (Pfizer) 12/16/2021,05/28/2021,08/25/2020,07/26 COVID-19, MRNA-LNP, PF, 30 M CG/0.3 mL, 12 YRS AND ABOVE, IM (PFIZER-Comirnaty) 04/06/2023 COVID-19, MRNA-LNP, PF, 50 M CG/0.5 mL, 12 YRS AND ABOVE, IM (MODERNA-Spikevax) 03/08/2024 Hepatitis B, 20+ yrs 09/14/2015,04/22/2015,03/16 Pneumococcal Conjugate Vacc, 13 Valent (Prevnar) 02/13/2018 Pneumococcal Conjugate Vacci ne, 7 Valent 04/25/2007 Pneumococcal Polysaccharide PPV23 (Pneumovax) 11/20/2013 Seasonal Influenza Vac., MDV , IM, 0.5 mL (Fluzone) 04/06/2023,03/16/2015,04/29/2014,12/2011,03/22/2011,03/18/2010,03/31/20 09,04/25/2007,05/16/2006 Seasonal Influenza Virus Vac cine, Unspecified [...] 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 Not on file Not on ever e Not on file documented as of this encounter Plan of Treatment Upcoming Encounters Date Type Department Care Team (Late st Contact Info) Description 10/09/2024 10:15 AM EDT Office Visit Ophthalmology, [facility] [address] [place] [address] Obed Bone DO [address] [place] [address] 10/14/2024 9:40 AM EDT Office Visit General Internal Medicine [facility] [address] [place] [address] Amada Vasquez MD [address] [place] [address] Scheduled Orders Name Type Priority Associated Diagnoses Orde r Schedule XR CHEST 2 VIEWS Medical Imaging Routine Hypotension, unspecified hypotension type ESRD (end stage renal disease) (HCC) Ordered: 08/31/2024 Health Maintenance Due Date Last Done Comments Adult Wellness Visit 2011 Nephrology Referral 08/16/2013 08/16/2012 Diabetic Eye Exam 11/23/2021 11/23/2020, , 09/07/2020, Additional history exists Depression Screening 06/28/2024 06/28/2023 PTH 07/10/2024 07/10/2023, 1207/2019, 11/11/2019, Additional history exists Phosphate 07/10/2024 07/10/2023, 0607/2020, 10/12/2020, Additional history exists COVID-19 Vaccine ( [...] as of this encounter Visit Diagnoses Diagnosis Hypotension, unspecified hypotension type- Primary ESRD (end stage renal disease) (HCC) End stage renal disease documented in this encounter Care Teams Electrical Engineering Manager Relationship Specialty Start Date End Date Amada Vasquez MD [address] [facility] [place] [address] PCP - General Internal Medicine 01/14/24 documented as of this encounter
--- OUTSIDE RECORDS SUMMARY | 2024-09-03 20:18 | External Medical Summary | Summary of Care ---
Author Name Unknown Organization [facility] Address [address] [place] [address] Phone [phone] Care Team Providers Care Aluminum Siding Installer Name Role Phone Amada Vasquez MD Primary Care Provider [phone] Reason for Visit * Reason Onset Date Comments Information 08/25/2024 Encounter Details Date Type Department Care Team (Late st Contact Info) Description 08/25/2024 Telephone General Internal Medicine [facility] [address] [place] [address] Amada Vasquez MD [address] [place] [address] Information Allergies Active Allergy Reactions Criticality Noted Date Comments Adhesive Tape 05/20/2019 Amlodipine 08/20/2019 Arformoterol Other (Please comment) 11/02/2015 Flare of asthma Budesonide Itching 03/04/2014 Pt reports itching in throat and ears after use. Calamine 11/16/1999 Chlorhexidine Rash 05/15/2024 Chondroitin 05/27/2010 Affect eyes Codeine Other (Please comment) 01/28/2019 nightmares Ipratropium [place] Hfa Cough 11/02/2015 Penicillins 11/16/1999 Statins Edema Other 05/08/2018 Severe swelling throughout body Sulfa Antibiotics 11/16/1999 Thimerosal (Thiomersal) Hives 09/14/2010 Neomycin-Bacitracin Zn-Polymyx Rash 09/14/2010 documented as of this encounter (statuses as of 08/25/2024) Medications GELATIN 600 MG PO CAPS Take 250 mg by mouth daily. Active ONE-A-DAY 50 PLUS PO TABS 013 Active BLOOD PRESSURE MONITOR/L CUFF MISCIndications:P roteinuria,HTN, goal below 130/80 for home bp log 1 Device 0 013 Active Additional Information Patient not taking.Reported on 05/15/2024 ASPIRIN 81 MG PO TABSIndications:K idney disease, chronic, stage IV (GFR 15-29 ml/min) ([facility]),Nephrotic syndrome 1 TABLET DAILY 30 Tab 5 014 Active loratadine (CLARITIN) 10 MG TabletIndications :Tracheitis, chronic, with laryngitis,Asthma with severity to be determined,Chroni c frontal sinusitis 1/2 tab daily 30 Tab 5 016 Active famotidine (PEPCID) 20 MG TabletIndications :Gastroesophageal reflux disease, esophagitis presence not specified Take 1 Tab by mouth 2 times a day. 180 Tab 3 017 Active Additional Information Patient taking differently:20 mg [...] and Sunday only. Active Cholecalciferol 1000 UNITS TabletIndications :5 x weekly Take 1 Tablet by mouth in the morning. Active zoster vac recomb adjuvanted (SHINGRIX) 50 MCG/0.5ML injectionIndicati ons:Need for shingles vaccine Inject 0.5 mL into a large muscle now and repeat dose in 60 to 180 days. Please fax date this was given to our office. 1 Each 1 019 Active Sevelamer HCl 800 MG Oral Tablet (RENAGEL) TAKE ONE TABLET BY MOUTH THREE TIMES DAILY WITH MEALS 270 Tab 2 020 Active Additional Information Patient taking differently: Taking twice per day, Reported on 05/15/2024 OneTouch Ultra Blue In Vitro Strip (Glucose Blood)Indications :Proliferative diabetic retinopathy of both eyes without macular edema associated with diabetes mellitus due to underlying condition ([facility]),Type 2 diabetes mellitus with diabetic nephropathy, with long-term current use of insulin ([facility]) TEST BLOOD SUGAR TWICE DAILY. Dx: E11.21 200 Strip 3 Active Additional Information Patient not taking.Reported on 05/15/2024 OneTouch UltraSoft LancetsIndication s:Type 2 diabetes mellitus with diabetic nephropathy, with long-term current use of insulin ([facility]),Proliferati ve diabetic retinopathy of both eyes without macular edema associated with diabetes mellitus due to underlying condition ([facility]) Use to test blood sugar twice daily 200 Each 3 Active Additional Information Patient not taking.Reported on 05/15/2024 BD Pen Needle Short U/F 31G X 8 MM (Insulin Pen Needle)Indication s:Type 2 diabetes mellitus with hemoglobin A1c goal of less than 7.0% ([facility]) USE 4 TIMES DAILY DIRECTED 100 Each 5 Active Mucinex 600 MG Oral Tablet Extended Release 12 Hour (guaiFENesin ER)Indications:Ch ronic frontal sinusitis Take 1 Tablet by mouth 2 times a day as needed for Congestion. Take with plenty of water. Do not cut, crush or chew 40 Tab 2 Active Montelukast Sodium 10 MG Oral Tablet (Singulair) TAKE 1 TABLET BY MOUTH EVERY EVENING 90 Tablet 3 Active Fluticasone-Salme terol 250-50 MCG/ACT Inhalation Aerosol Powder Breath Activated (Advair Diskus)Indication s:Mild intermittent asthma with exacerbation Inhale 1 Puff by mouth in the morning and 1 Puff before bedtime. 1 Each 5 Active Additional Information Patient not taking.Reported on 05/15/2024 Midodrine HCl 2.5 MG Oral Tablet (Proamatine) Take 2 Tablets by mouth. Sunday, Sunday, and Sunday Active Simbrinza 1-0.2 % Ophthalmic Suspension (Brinzolamide-Nicki monidine)Indicati ons:Diabetic macular edema (HCC) INSTILL ONE DROP INTO RIGHT EYE TWICE DAILY 10 mL 12 Active Docusate Sodium 100 MG Oral Capsule (Colace) Take 1 Capsule by mouth in the morning and 1 Capsule before bedtime. Active Sennosides 8.6 MG Oral Tablet (Senokot) Take 1 Tablet by mouth daily as needed for Constipation. Active Gabapentin 100 MG Oral Capsule (Neurontin)Indica tions:Hip pain, right,Generalized osteoarthritis Take 1 Capsule by mouth in the morning and 1 Capsule at noon and 1 Capsule before bedtime. 90 Capsule 3 024 Active Albuterol Sulfate HFA 108 (90 Base) MCG/ACT Inhalation Aerosol SolutionIndicatio ns:Mild intermittent asthma with exacerbation Inhale 1 Puff by mouth every 4 hours as needed for Wheezing. 18 g 5 024 Active Dexcom G7 Safety Grooving Machine Operator DeviceIndications :Type 2 diabetes mellitus with diabetic nephropathy, with long-term current use of insulin ([facility]),Type 2 diabetes mellitus with hemoglobin A1c goal of less than 8.0% ([facility]) Use as directed. 1 Each 024 Active Dexcom G7 SensorIndications :Type 2 diabetes mellitus with diabetic nephropathy, with long-term current use of insulin ([facility]),Type 2 diabetes mellitus with hemoglobin A1c goal of less than 8.0% ([facility]) Use as directed every 10 days. 9 Each 3 024 Active Levothyroxine Sodium 150 MCG Oral Tablet (Levoxyl)Indicati ons:Acquired hypothyroidism Take 1 Tablet by mouth in the morning. (at least 30 min prior to breakfast or other meds). 90 Tablet 2 025 Active Insulin Glargine 100 UNIT/ML Subcutaneous Solution Pen-injector (Lantus)Indicatio ns:Type 2 diabetes mellitus with diabetic nephropathy, with long-term current use of insulin ([facility]),Type 2 diabetes mellitus with hemoglobin A1c goal of less than 7.0% ([facility]) Inject 6 Units under the skin daily. 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 * Telephone Encounter - Amada Vasquez MD - 08/25/2024 1:24 PM EST Anyone born before 1956 would have immunity from disease but can do titre to make sure which I justordered along with her other routine blood work that she is due for * Telephone Encounter - Ruchi Tate, dispatcher bus and trolley - 08/25/2024 8:17 AM EST Pt called stating that she never had the measles vaccine but had the measles when she was 7, pt asking if she should get the vaccine or if she's immune, can be reached at [phone] , please advise Thank you, Ruchi Tate,[facility] Marine Reporter [facility] 08/25/2024, 8:19 AM documented in this encounter Plan of Treatment Upcoming Encounters Date Type Department Care Team (Late st Contact Info) Description 10/09/2024 10:15 AM EDT Office Visit Ophthalmology, [facility] [address] [place] [address] Obed Bone DO [address] [place] [address] 10/14/2024 9:40 AM EDT Office Visit General Internal Medicine [facility] [address] [facility] [place] [address] Amada Vasquez MD [address] [facility] [place] [address] Scheduled Orders Name Type Priority Associated Diagnoses Orde r Schedule RUBEOLA (MEASLES) IGG ANTIBODY Lab Routine Need for djhupcs-eidao-rimwhdc (MMR) vaccine Expected: 08/25/2024 (Approximate), Expires: 08/25/2025 HEMOGLOBIN A1C Lab Routine Type 2 diabetes mellitus with diabetic nephropathy, with long-term current use of insulin (HCC) Expected: 08/25/2024 (Approximate), Expires: 08/25/2025 COMPREHENSIVE METABOLIC PANEL Lab Routine HTN, goal below 140/90 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) Expected: 08/25/2024 (Approximate), Expires: 08/25/2025 TSH Lab Routine Acquired hypothyroidism Expected: 08/25/2024 (Approximate), Expires: 08/25/2025 PHOSPHORUS Lab Routine 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) Expected: 08/25/2024 (Approximate), Expires: 08/25/2025 PTH Lab Routine 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) Expected: 08/25/2024 (Approximate), Expires: 08/25/2025 Health Maintenance Due Date Last Done Comments Adult Wellness Visit 2011 Nephrology Referral 08/16/2013 08/16/2012 Diabetic Eye Exam 11/23/2021 11/23/2020, , 09/07/2020, Additional history exists Depression Screening 06/28/2024 06/28/2023 PTH 07/10/2024 07/10/2023, 12/0 07/2019, 11/11/2019, Additional history exists Phosphate 07/10/2024 07/10/2023, 06/0 07/2020, 10/12/2020, Additional history exists COVID-19 Vaccine [...] this encounter Visit Diagnoses Diagnosis Need for sgqdplb-vzbkf-odpqyta (MMR) vaccine- Primary Need for prophylactic vaccination with riedijs-wqcez-ybofqaj (MMR) vaccine HTN, goal below 140/90 Unspecified essential hypertension Type 2 diabetes mellitus with diabetic nephropathy, with long-term current use of insulin (HCC) Acquired hypothyroidism Unspecified hypothyroidism 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
--- OUTSIDE RECORDS SUMMARY | 2024-09-03 20:18 | External Medical Summary | Summary of Care ---
Author Name Unknown Organization [facility] Address [address] [place] [address] Phone [phone] Care Team Providers Care Balloon Sander Name Role Phone Amada Vasquez MD Primary Care Provider [phone] Encounter Details Date Type Department Care Team (Late st Contact Info) Description 08/27/2024 Orders Only PATIENT PORTAL DO NOT DELETE THIS DEPT USED BY [place] [id number] Allergies Active Allergy Reactions Criticality Noted Date Comments Adhesive Tape 05/20/2019 Amlodipine 08/20/2019 Arformoterol Other (Please comment) 11/02/2015 Flare of asthma Budesonide Itching 03/04/2014 Pt reports itching in throat and ears after use. Calamine 11/16/1999 Chlorhexidine Rash 05/15/2024 Chondroitin 05/27/2010 Affect eyes Codeine Other (Please comment) 01/28/2019 nightmares Ipratropium [place] Hfa Cough 11/02/2015 Penicillins 11/16/1999 Statins Edema Other 05/08/2018 Severe swelling throughout body Sulfa Antibiotics 11/16/1999 Thimerosal (Thiomersal) Hives 09/14/2010 Neomycin-Bacitracin Zn-Polymyx Rash 09/14/2010 documented as of this encounter (statuses as of 08/27/2024) Medications GELATIN 600 MG PO CAPS Take [...] TIMES DAILY DIRECTED 100 Each 5 11/14/19 Active Mucinex 600 MG Oral Tablet Extended [...] g 5 05/15/20 24 Active Dexcom G7 Roofing Technician DeviceIndications: Type 2 diabetes mellitus with diabetic [...] as of this encounter (statuses as of 08/27/2024) Active Problems Problem Noted Date Diagnosed Date [...] as of this encounter (statuses as of 08/27/2024) Resolved Problems Problem Noted Date Diagnosed Date [...] as of this encounter (statuses as of 08/27/2024) Immunizations Name Administration Dates Next Due COVID-19 mRNA, LNP-s, No Pre serve, 2-Dose Series ([employer]) 12/16/2021,05/28/2021,08/25/2020,07/26 COVID-19, MRNA-LNP, PF, 30 M CG/0.3 [...] 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 Not on file Not on ever e Not on file documented as of this encounter Plan of Treatment Upcoming Encounters Date Type Department Care Team (Late st Contact Info) Description 10/09/2024 10:15 AM EDT Office Visit Ophthalmology, [facility] [address] [place] [address] Obed Bone, [address] [place] [address] 10/14/2024 9:40 AM EDT Office Visit General Internal Medicine [facility] [address] [facility] [place] [place] [address] Amada Vasquez MD 200 [facility] [place] [address] Health Maintenance Due Date Last Done Comments Adult Wellness Visit 2011 Nephrology Referral 08/16/2013 08/16/2012 Diabetic Eye Exam 11/23/2021 11/23/2020, , 09/07/2020, Additional history exists Depression Screening 06/28/2024 06/28/2023 PTH 07/10/2024 07/10/2023, 07/2019, 11/11/2019, Additional history [...] filedocumented as of this encounter Care Teams Balloon Sander Relationship Specialty Start Date End Date Amada Vasquez MD [address] [place] [address] PCP - General Internal Medicine 01/14/24 documented as of this encounter
--- OUTSIDE RECORDS SUMMARY | 2024-09-03 20:18 | External Medical Summary | Summary of Care ---
Author Name Unknown Organization [facility] Address [address] [place] [address] Phone [phone] Care Team Providers Care Health And Safety Specialist Name Role Phone Amada Vasquez MD Primary Care Provider [phone] Reason for Visit * Reason Onset Date Comments Advice 09/02/2024 Encounter Details Date Type Department Care Team (Late st Contact Info) Description 09/02/2024 Telephone Access Center, [place] [address] [facility] *DO NOT REMOVE THIS DEPARTMENT* [place] [address] Services, Scheduling [address] [place] [address] Advice Allergies Active Allergy Reactions Criticality Noted Date Comments Adhesive Tape 05/20/2019 Amlodipine 08/20/2019 Arformoterol Other (Please comment) 11/02/2015 Flare of asthma Budesonide Itching 03/04/2014 Pt reports itching in throat and ears after use. Calamine 11/16/1999 Chlorhexidine Rash 05/15/2024 Chondroitin 05/27/2010 Affect eyes Codeine Other (Please comment) 01/28/2019 nightmares Ipratropium [place] Hfa Cough 11/02/2015 Penicillins 11/16/1999 Statins Edema [...] Suspension (Brinzolamide-Brim onidine)Indication s:Diabetic macular edema ([facility]) INSTILL ONE DROP INTO RIGHT EYE TWICE [...] g 5 05/15/20 24 Active Dexcom G7 Canvas Baster DeviceIndications: Type 2 diabetes mellitus with diabetic nephropathy, with long-term current use of insulin ([facility]),Type 2 diabetes mellitus with hemoglobin A1c goal of less than 8.0% ([facility]) Use as directed. 1 Each 06/06/20 24 Active Dexcom G7 SensorIndications: Type 2 diabetes mellitus with diabetic nephropathy, with long-term current use of insulin ([facility]),Type 2 diabetes mellitus with hemoglobin A1c goal of less than 8.0% ([facility]) Use as directed every 10 days. 9 [...] of insulin ([facility]),Type 2 diabetes mellitus with hemoglobin A1c goal of less than 7.0% ([facility]) Inject 6 Units under the skin daily. 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 She is calling to discuss what to do with her medication . Please call to discuss documented in this encounter Plan of Treatment Upcoming Encounters Date Type Department Care Team (Late st Contact Info) Description 10/07/2024 1:30 PM EDT Office Visit Otolaryngology/Head & Neck/Facial Plastic Surgery [address] [place] [address] Dev Johnson MD [address] [place] [address] 10/09/2024 10:15 AM EDT [facility] [place] [address] Obed Bone DO [address] [place] [address] 10/14/2024 9:40 AM EDT Office Visit General Internal Medicine [facility] [address] [place] [address] Amada Vasquez MD [address] [place] [address] 02/24/2025 8:30 AM EDT Office Visit Cardiology, [facility] [address] [place] [address] Anitra Smalls CRNP [address] [place] [address] Health Maintenance Due Date Last Done Comments [...] filedocumented as of this encounter Care Teams Health And Safety Specialist Relationship Specialty Start Date End Date Amada Vasquez MD 200 [facility] [place] [place] [address] PCP - General Internal Medicine 01/14/24 documented as of this encounter
--- OUTSIDE RECORDS SUMMARY | 2024-09-03 20:18 | External Medical Summary | Summary of Care ---
Author Name Unknown Organization [facility] Address [address] [place] [address] Phone [phone] Care Team Providers Care Campus President Name Role Phone Bethanie Vasquez MD Primary Care Provider [phone] Reason for Visit * Reason Comments eRx-Medication Refill Encounter Details Date Type Department Care Team (Late st Contact Info) Description 08/23/2024 Refill General Internal Medicine [facility] [address] [facility] [place] [address] Bethanie Vasquez MD [address] [place] [address] Type 2 diabetes mellitus with diabetic nephropathy, with long-term current use of insulin ([facility]); Type 2 diabetes mellitus with hemoglobin A1c goal of less than 7.0% ([facility]) Allergies Active Allergy Reactions Criticality Noted Date Comments Adhesive Tape 05/20/2019 Amlodipine 08/20/2019 Arformoterol Other (Please comment) 11/02/2015 Flare of asthma Budesonide Itching 03/04/2014 Pt reports itching in throat and ears after use. Calamine 11/16/1999 Chlorhexidine Rash 05/15/2024 Chondroitin 05/27/2010 Affect eyes Codeine Other (Please comment) 01/28/2019 nightmares Ipratropium [place] Hfa Cough 11/02/2015 Penicillins 11/16/1999 Statins Edema [...] TIMES DAILY WITH MEALS 270 Tab 2 Active Additional Information Patient taking differently: Taking [...] of insulin ([facility]),Proliferati ve diabetic retinopathy of both eyes without [...] RIGHT EYE TWICE DAILY 10 mL 12 024 Active Docusate Sodium 100 MG Oral Capsule [...] 18 g 5 024 Active Dexcom G7 Window Installer DeviceIndications :Type 2 diabetes mellitus with diabetic nephropathy, with long-term current use of insulin ([facility]),Type 2 diabetes mellitus with hemoglobin A1c goal of less than 8.0% ([facility]) Use as directed. 1 Each 024 Active [...] 90 Tablet 2 025 Active Insulin Glargine Solostar 100 UNIT/ML Subcutaneous Solution Pen-injector (Lantus SoloStar)Indicati ons:Type 2 diabetes mellitus with diabetic nephropathy, with long-term current use of insulin ([facility]),Type 2 diabetes mellitus with hemoglobin A1c goal of less than 7.0% (HCC) Inject 6 Units under the skin daily. 15 mL 3 025 Active Insulin Glargine 100 UNIT/ML Subcutaneous Solution Pen-injector (Lantus)Indicatio ns:Type 2 diabetes mellitus with diabetic nephropathy, with long-term current use of insulin ([facility]),Type 2 diabetes mellitus with hemoglobin A1c goal of less than 7.0% (HCC) Inject 6 Units under the skin daily. 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 Authorizing Provider: BETHANIE VASQUEZ * Telephone Encounter - Bonita Knutson [facility] - 08/25/2024 2:15 PM ESTPending Prescriptions: Disp Refills Insulin Glargine Solostar 100 UNIT/ML Subc*15 mL 0 Sig: Inject 6 Units under the skin daily. * Telephone Encounter - Bonita Knutson RPh - 08/25/2024 2:15 PM EST Pharmacists cannot authorize refills for meds listed as "historical" in the chart. Please approve if appropriate. Pending Prescriptions: Disp Refills Insulin Glargine Solostar 100 UNIT/ML Subc*15 mL 0 Sig: Inject 6 Units under the skin daily. 05/15/2024 (in office), Visit date not found (telemedicine) 10/14/2024 If no future appointments scheduled, and last appointment is greater than a year ago, please schedule patient for a follow-up appointment Last date the medication was ordered: historical Pharmacy: [facility] [id number] Is this request for a controlled substance?No Urine Drug Screen:No results found. However, due to the size of the patient record, not all encounters were searched. Please check Results Review for a complete set of results. Patient Phone Numbers Labs: Lab Results Component Value Date/Time CREAT 4.0 (H) 04/10/2024 10:09 AM CREAT 4.18 (H) 04/18/2023 11:13 AM CREAT 2.5 (H) 07/20/2020 09:22 AM POTASSIUM 4.0 04/10/2024 10:09 AM POTASSIUM 3.8 04/18/2023 11:13 AM POTASSIUM 4.8 05/26/2020 09:10 AM TSH 1.15 05/15/2024 12:06 PM TSH 1.15 06/21/2020 10:17 AM LDL 37 07/10/2023 11:44 AM LDL 92 01/14/2020 10:22 AM LDL NOT APPLICABLE 01/14/2020 10:22 AM LDLCALC 44 04/24/2022 09:11 AM ALT 15 04/10/2024 10:09 AM ALT 7 04/18/2023 11:13 AM ALT 9 (L) 12/19/2018 11:18 AM HGBA1C 7.6 (H) 05/15/2024 12:06 PM HGBA1C 6.6 (H) 12/29/2022 11:59 AM HGBA1C 6.8 (H) 06/21/2020 10:20 AM * Telephone Encounter - Ruchi Tate PHARM Tech - 08/25/2024 8:15 AM EST pt calling requesting the following medication below that is listed as "Historical". The following information was provided: Medication Name: Insulin Glargine 100 UNIT/ML Subcutaneous Solution Pen-injector (Lantus Directions: Inject 6 Units under the skin daily Preferred Quantity: 15 ml Previous Prescriber: Jackelyn Santana MD Preferred Pharmacy: [facility] [address] [place] [address] Please review and approve if appropriate. Thank you, Ruchi Tate CPhT [employer] [facility] 08/25/2024, 8:16 AM documented in this encounter Plan of Treatment Upcoming Encounters Date Type Department Care Team (Late st Contact Info) Description 10/09/2024 10:15 AM EDT Office Visit Ophthalmology, [facility] [address] [facility] [place] [address] Obed Bone, [address] [place] [address] 10/14/2024 9:40 AM EDT Office Visit General Internal Medicine [facility] [address] [place] [address] Bethanie Vasquez MD [address] ON LICENSE OF [facility] [place] [address] Health Maintenance Due Date Last Done Comments [...] with long-term current use of insulin (HCC) Type 2 diabetes mellitus with hemoglobin A1c goal of less than 7.0% (HCC) documented in this encounter Care Teams Campus President Relationship Specialty Start Date End Date Bethanie Vasquez MD [address] [place] [address] PCP - General Internal Medicine 01/14/24 documented as of this encounter
--- OUTSIDE RECORDS SUMMARY | 2024-09-03 20:18 | External Medical Summary | Summary of Care ---
Author Name Unknown Organization [facility] Address [address] [place] [address] Phone [phone] Care Team Providers Care Principal Statistical Programmer Name Role Phone Amada Vasquez MD Primary Care Provider [phone] Reason for Visit * Reason Onset Date Comments Advice 08/28/2024 Encounter Details Date Type Department Care Team (Late st Contact Info) Description 08/28/2024 Telephone Access Center, [place] [address] [facility] *DO NOT REMOVE THIS DEPARTMENT* [place] [address] Services, Scheduling [address] [place] [address] Advice Allergies Active Allergy Reactions Criticality Noted Date Comments Adhesive Tape 05/20/2019 Amlodipine 08/20/2019 Arformoterol Other (Please comment) 11/02/2015 Flare of asthma Budesonide Itching 03/04/2014 Pt reports itching in throat and ears after use. Calamine 11/16/1999 Chlorhexidine Rash 05/15/2024 Chondroitin 05/27/2010 Affect eyes Codeine Other (Please comment) 01/28/2019 nightmares Ipratropium [place] Hfa Cough 11/02/2015 Penicillins 11/16/1999 Statins Edema [...] disease, chronic, stage IV (GFR 15-29 ml/min) ([facility]),Nephrotic syndrome 1 TABLET DAILY 30 [...] with diabetes mellitus due to underlying condition ([facility]),Type 2 diabetes mellitus with diabetic nephropathy, with long-term current use of insulin ([facility]) TEST BLOOD SUGAR TWICE DAILY. Dx: E11.21 200 Strip 3 06/21/20 Active Additional Information Patient not taking.Reported on 05/15/2024 OneTouch UltraSoft LancetsIndications :Type 2 diabetes mellitus with diabetic nephropathy, with long-term current use of insulin ([facility]),Proliferativ e diabetic retinopathy of both eyes without macular edema associated with diabetes mellitus due to underlying condition ([facility]) Use to test blood sugar twice daily 200 Each 3 06/21/20 Active Additional Information Patient not taking.Reported on 05/15/2024 BD Pen Needle Short U/F 31G X 8 MM (Insulin Pen Needle)Indications :Type 2 diabetes mellitus with hemoglobin A1c goal of less than 7.0% ([facility]) USE 4 TIMES DAILY DIRECTED [...] Ophthalmic Suspension (Brinzolamide-Brim onidine)Indication s:Diabetic macular edema ([facility]) INSTILL ONE DROP INTO RIGHT EYE TWICE [...] g 5 05/15/20 24 Active Dexcom G7 Crown Blocker DeviceIndications: Type 2 diabetes mellitus with diabetic nephropathy, with long-term current use of insulin ([facility]),Type 2 diabetes mellitus with hemoglobin A1c goal of less than 8.0% ([facility]) Use as directed. 1 Each 06/06/20 24 Active Dexcom G7 SensorIndications: Type 2 diabetes mellitus with diabetic nephropathy, with long-term current use of insulin ([facility]),Type 2 diabetes mellitus with hemoglobin A1c goal of less than 8.0% ([facility]) Use as directed every 10 [...] nephropathy, with long-term current use of insulin ([facility]),Type 2 diabetes mellitus with hemoglobin A1c goal of less than 7.0% ([facility]) Inject 6 Units under the [...] mRNA, LNP-s, No Pre serve, 2-Dose Series ([employer]) 12/16/2021,05/28/2021,08/25/2020,07/26 COVID-19, MRNA-LNP, PF, 30 M CG/0.3 [...] 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 Pt's sister answered her phone and stated pt was not available. Called alternate call number Jody and she states that she does not speak with pt very often. Will relay messageto Dr Yan and she will follow up with [facility] Dialysis nurse. * Telephone Encounter - Oli Petersen OSA - 08/28/2024 10:03 AM EST Patient was advised by wound care to reach out to Dr. Yan in regards to a bad reaction she hadafter receiving dialysis. Per patient she is on an antibiotic that might've caused the reaction. Asking to speak with Dr. Yan regarding this. [phone] documented in this encounter Plan of Treatment Upcoming Encounters Date Type Department Care Team (Late st Contact Info) Description 10/09/2024 10:15 AM EDT Office Visit Ophthalmology, [facility] [address] [place] [address] Obed Bone DO [address] [place] [address] 10/14/2024 9:40 AM EDT Office Visit [facility] [address] [place] [address] Amada Vasquez MD [address] [place] [address] Health Maintenance Due Date Last Done Comments [...] filedocumented as of this encounter Care Teams Principal Statistical Programmer Relationship Specialty Start Date End Date Amada Vasquez MD [address] [place], [place] [address] PCP - General Internal Medicine 01/14/24 documented as of this encounter
--- OUTSIDE RECORDS SUMMARY | 2024-09-03 20:18 | External Medical Summary | Summary of Care ---
Author Name Unknown Organization [facility] Address [address] [place] [address] Phone [phone] Care Team Providers Care Hostage Negotiator Name Role Phone Amada Vasquez MD Primary Care Provider [phone] Reason for Referral * Precert (Diagnostic Medical) (Within 10 days (routine)) - Authorized Specialty Diagnoses / Procedures Referred By Contac t Referred To Contact Cardiac Studies Diagnoses Hypotension, unspecified hypotension type Procedures ECHO, COMPLETE (2D), TRANS-THORACIC Antionette Yan MD 200 [facility] [place] [address] Phone: tel: fax: Referral ID Status Reason Start Date Expiration Date V isits Requested Visits Authorized [id number] Authorized Precert 08/30/2024 [id number] Encounter Details Date Type Department Care Team (Late st Contact Info) Description 08/29/2024 Documentation Nephrology, [facility] [address] [place] [address] Antionette Yan MD [address] [place] [address] Hypotension, unspecified hypotension type* Allergies Active Allergy Reactions Criticality Noted Date Comments Adhesive Tape 05/20/2019 Amlodipine 08/20/2019 Arformoterol Other (Please comment) 11/02/2015 Flare of asthma Budesonide Itching 03/04/2014 Pt reports itching in throat and ears after use. Calamine 11/16/1999 Chlorhexidine Rash 05/15/2024 Chondroitin 05/27/2010 Affect eyes Codeine Other (Please comment) 01/28/2019 nightmares Ipratropium [place] Hfa Cough 11/02/2015 Penicillins 11/16/1999 Statins Edema Other 05/08/2018 Severe swelling throughout body Sulfa Antibiotics 11/16/1999 Thimerosal (Thiomersal) Hives 09/14/2010 Neomycin-Bacitracin Zn-Polymyx Rash 09/14/2010 documented as of this encounter (statuses as of 08/29/2024) Medications GELATIN 600 MG PO CAPS Take 250 mg by mouth daily. Active ONE-A-DAY 50 PLUS PO TABS 08/24/19 13 Active BLOOD PRESSURE MONITOR/L CUFF MISCIndications:Pr oteinuria,HTN, goal below 130/80 for home bp log 1 Device 0 10/01/19 13 Active Additional Information Patient not taking.Reported on 05/15/2024 ASPIRIN 81 MG PO TABSIndications:Ki dney disease, chronic, stage IV (GFR 15-29 ml/min) ([facility]),Nephrotic syndrome 1 TABLET DAILY 30 Tab [...] mellitus due to underlying condition ([facility]),Type 2 diabetes mellitus with diabetic nephropathy, with long-term current use of insulin ([facility]) TEST BLOOD SUGAR TWICE DAILY. Dx: E11.21 200 Strip 3 06/21/20 20 Active Additional Information Patient not taking.Reported on 05/15/2024 OneTouch UltraSoft LancetsIndications :Type 2 diabetes mellitus with diabetic nephropathy, with long-term current use of insulin ([facility]),Proliferativ e diabetic retinopathy of both eyes without macular edema associated with diabetes mellitus due to underlying condition ([facility]) Use to test blood sugar twice daily 200 Each 3 06/21/20 20 Active Additional Information Patient not taking.Reported on 05/15/2024 BD Pen Needle Short U/F 31G X 8 MM (Insulin Pen Needle)Indications :Type 2 diabetes mellitus with hemoglobin A1c goal of less than 7.0% ([facility]) USE 4 TIMES DAILY DIRECTED 100 [...] g 5 05/15/20 24 Active Dexcom G7 Manager Decision Support DeviceIndications: Type 2 diabetes mellitus with diabetic nephropathy, with long-term current use of insulin ([facility]),Type 2 diabetes mellitus with hemoglobin A1c goal of less than 8.0% ([facility]) Use as directed. 1 Each 06/06/20 24 Active Dexcom G7 SensorIndications: Type 2 diabetes mellitus with diabetic nephropathy, with long-term current use of insulin ([facility]),Type 2 diabetes mellitus with hemoglobin A1c goal of less than 8.0% ([facility]) Use as directed every 10 days. [...] nephropathy, with long-term current use of insulin (HCC),Type 2 diabetes mellitus with hemoglobin A1c goal of less than 7.0% ([facility]) Inject 6 Units under the skin daily. 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 Interdialytic wt gain is ok. On midodrine 5 g w/ HD. -upped midodrine to 10 mg pre HD else 5 mg bid (dialysis will order; but neph nurse pls update med list) -will order ECG, TTE now -asking dialysis nurse to pls get her back in w/ cardiology per routine Stopped ID rx'd abtc (linezolid; follows / [facility] Arp ID) after 2 wks b/c of GI s/e - diarrhea not responding to imodium; additional 2 wks had been rx'd. Plans to restart this PM to see if she cantolerate; assured her GI sx have NT to do w/ dialysis though it may be contributing to hypotension w/ less po, more diarrhea. More issues w/ subglottal stenosis coughing, swallowing pills; 02 sats maintained including w/ speech > was to see [facility] in May but cx'd by surgeon d/t OR. Pt anxious about getting to [facility]. -pls reach out to [facility] and have them call her to reschedule ENT [facility] appt Dr Christina PRIEST Dialysis nurses will arrange above documented in this encounter Plan of Treatment Upcoming Encounters Date Type Department Care Team (Late st Contact Info) Description 10/09/2024 10:15 AM EDT Office Visit Ophthalmology, [facility] [address] [place] [address] Obed Bone DO [address] [place] [address] 10/14/2024 9:40 AM EDT Office Visit General Internal Medicine [facility] [address] [facility] [place] [address] Amada Vasquez MD 200 [facility] [place] [address] Scheduled Orders Name Type Priority Associated Diagnoses Orde r Schedule ECHO, COMPLETE (2D), TRANS-THORACIC Echocardiology Routine Hypotension, unspecified hypotension type Expected: 08/30/2024, Expires: 09/29/2026 EKG EKG Routine Hypotension, unspecified hypotension type Expected: 08/29/2024 (Approximate), Expires: 09/29/2025 Health Maintenance Due Date Last Done Comments [...] Diagnoses Diagnosis Hypotension, unspecified hypotension type- Primary documented in this encounter Care Teams Hostage Negotiator Relationship Specialty Start Date End Date Amada Vasquez MD 200 [facility] [place], [place] [address] PCP - General Internal Medicine 01/14/24 documented as of this encounter
--- OUTSIDE RECORDS SUMMARY | 2024-09-03 20:18 | External Medical Summary | Summary of Care ---
Author Name Unknown Organization [facility] Address [address] [place] [address] Phone [phone] Care Team Providers Care Pig Farm Manager Name Role Phone Amada Vasquez MD Primary Care Provider [phone] Reason for Visit * Reason Onset Date Comments Advice 08/13/2024 Encounter Details Date Type Department Care Team (Late st Contact Info) Description 08/13/2024 Telephone General Internal Medicine [facility] [address] [place] [address] Amada Vasquez MD [address] [place] [address] Advice Allergies Active Allergy Reactions Criticality Noted Date Comments Adhesive Tape 05/20/2019 Amlodipine 08/20/2019 Arformoterol Other (Please comment) 11/02/2015 Flare of asthma Budesonide Itching 03/04/2014 Pt reports itching in throat and ears after use. Calamine 11/16/1999 Chlorhexidine Rash 05/15/2024 Chondroitin 05/27/2010 Affect eyes Codeine Other (Please comment) 01/28/2019 nightmares Ipratropium [place] Hfa Cough 11/02/2015 Penicillins 11/16/1999 Statins Edema Other 05/08/2018 Severe swelling throughout body Sulfa Antibiotics 11/16/1999 Thimerosal (Thiomersal) Hives 09/14/2010 Neomycin-Bacitracin Zn-Polymyx Rash 09/14/2010 documented as of this encounter (statuses as of 08/21/2024) Medications GELATIN 600 MG PO CAPS Take 250 mg by mouth daily. Active ONE-A-DAY 50 PLUS PO TABS 08/24/19 13 Active BLOOD PRESSURE MONITOR/L CUFF MISCIndications:Pr oteinuria,HTN, goal below 130/80 for home bp log 1 Device 0 10/01/19 13 Active Additional Information Patient not taking.Reported on 05/15/2024 ASPIRIN 81 MG PO TABSIndications:Ki dney disease, chronic, stage IV (GFR 15-29 ml/min) ([facility]),Nephrotic syndrome 1 TABLET DAILY 30 [...] with diabetes mellitus due to underlying condition ([facility]),Type 2 diabetes mellitus with diabetic nephropathy, with long-term current use of insulin ([facility]) TEST BLOOD SUGAR TWICE DAILY. Dx: E11.21 200 Strip 3 06/21/20 Active Additional Information Patient not taking.Reported on 05/15/2024 OneTouch UltraSoft LancetsIndications :Type 2 diabetes mellitus with diabetic nephropathy, with long-term current use of insulin ([facility]),Proliferativ e diabetic retinopathy of both eyes without macular edema associated with diabetes mellitus due to underlying condition ([facility]) Use to test blood sugar twice daily 200 Each 3 06/21/20 Active Additional Information Patient not taking.Reported on 05/15/2024 BD Pen Needle Short U/F 31G X 8 MM (Insulin Pen Needle)Indications :Type 2 diabetes mellitus with hemoglobin A1c goal of less than 7.0% ([facility]) USE 4 TIMES DAILY DIRECTED [...] Ophthalmic Suspension (Brinzolamide-Brim onidine)Indication s:Diabetic macular edema ([facility]) INSTILL ONE DROP INTO RIGHT [...] bedtime. 90 Capsule 3 05/15/20 24 Active Insulin Glargine 100 UNIT/ML Subcutaneous Solution Pen-injector (Lantus)Indication s:Type 2 diabetes mellitus with diabetic nephropathy, with long-term current use of insulin ([facility]),Type 2 diabetes mellitus with hemoglobin A1c goal of less than 7.0% ([facility]) Inject 6 Units under the skin daily. 05/15/20 24 Active Albuterol Sulfate HFA 108 (90 Base) MCG/ACT Inhalation Aerosol SolutionIndication s:Mild intermittent asthma with exacerbation Inhale 1 Puff by mouth every 4 hours as needed for Wheezing. 18 g 5 05/15/20 24 Active Dexcom G7 Blend Technician DeviceIndications: Type 2 diabetes mellitus with diabetic nephropathy, with long-term current use of insulin ([facility]),Type 2 diabetes mellitus with hemoglobin A1c goal of less than 8.0% ([facility]) Use as directed. 1 Each 06/06/20 24 Active Dexcom G7 SensorIndications: Type 2 diabetes mellitus with diabetic nephropathy, with long-term current use of insulin ([facility]),Type 2 diabetes mellitus with hemoglobin A1c goal of less than 8.0% ([facility]) Use as directed every 10 days. 9 Each 3 06/06/20 24 Active Levothyroxine Sodium 150 MCG Oral Tablet (Levoxyl)Indicatio ns:Acquired hypothyroidism Take 1 Tablet by mouth in the morning. (at least 30 min prior to breakfast or other meds). 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 They have been putting cortisone on it, but it resembles chicken pox. She is washing with water and putting cortisone on it, helps for the most part. She is going to give it some time to heal and if she feels she needs an appointment she will call. * Telephone Encounter - Isabel Nathan CMA - 08/13/2024 3:38 PM EST Attempted to call patient, LVM to return call. Please advise patient that she needs to follow up with provider's office who completed procedure. * Telephone Encounter - Ginny Pascual OSA - 08/13/2024 3:02 PM EST procedure done aboout 3 weeks ago, with Dr Gavino Woodward ([facility]). Patient has a line of itchy break outs and feels like super glue under eye, chin and back of ear. Last time it was 3 months before it went away. Putting cortisone to keep itch down. Asking if provider suggests anything else. documented in this encounter Plan of Treatment Upcoming Encounters Date Type Department Care Team (Late st Contact Info) Description 10/09/2024 10:15 AM EDT Office Visit Ophthalmology, [facility] [address] [place] [address] [place], [address] [place] [address] 10/14/2024 9:40 AM EDT Office Visit General Internal Medicine [facility] [address] [facility] [place] [address] Amada Vasquez MD 200 [facility] [place] [address] Health Maintenance Due Date Last Done Comments [...] filedocumented as of this encounter Care Teams Pig Farm Manager Relationship Specialty Start Date End Date Amada Vasquez MD 200 [facility] [place] [address] PCP - General Internal Medicine 01/14/24 documented as of this encounter
--- OUTSIDE RECORDS SUMMARY | 2024-09-03 20:19 | External Medical Summary | Summary of Care ---
Author Name Unknown Organization [facility] Address [address] [place] [address] Phone [phone] Care Team Providers Care Retail Experience Specialist Name Role Phone Amada Vasquez MD Primary Care Provider [phone] Reason for Visit * Reason Onset Date Comments Advice 08/13/2024 Encounter Details Date Type Department Care Team (Late st Contact Info) Description 08/13/2024 Telephone General Internal Medicine [facility] [address] [place] [address] Amada Vasquez MD [address] [place] [address] Advice Allergies Active Allergy Reactions Criticality Noted Date Comments Adhesive Tape 05/20/2019 Amlodipine 08/20/2019 Arformoterol Other (Please comment) 11/02/2015 Flare of asthma Budesonide Itching 03/04/2014 Pt reports itching in throat and ears after use. Calamine 11/16/1999 Chlorhexidine Rash 05/15/2024 Chondroitin 05/27/2010 Affect eyes Codeine Other (Please comment) 01/28/2019 nightmares Ipratropium [place] Hfa Cough 11/02/2015 Penicillins 11/16/1999 Statins Edema [...] 15-29 ml/min) ([facility]),Nephrotic syndrome 1 TABLET DAILY 30 Tab [...] underlying condition ([facility]),Type 2 diabetes mellitus with diabetic nephropathy, with long-term current use of insulin ([facility]) TEST BLOOD SUGAR TWICE DAILY. Dx: E11.21 200 Strip 3 06/21/20 Active Additional Information Patient not taking.Reported on 05/15/2024 OneTouch UltraSoft LancetsIndications :Type 2 diabetes mellitus with diabetic nephropathy, with long-term current use of insulin ([facility]),Proliferativ e diabetic retinopathy of both eyes without macular edema associated with diabetes mellitus due to underlying condition ([facility]) Use to test blood sugar twice daily 200 Each 3 06/21/20 Active Additional Information Patient not taking.Reported on 05/15/2024 BD Pen Needle Short U/F 31G X 8 MM (Insulin Pen Needle)Indications :Type 2 diabetes mellitus with hemoglobin A1c goal of less than 7.0% ([facility]) USE 4 TIMES DAILY DIRECTED 100 [...] macular edema ([facility]) INSTILL ONE DROP INTO RIGHT EYE [...] of insulin ([facility]),Type 2 diabetes mellitus with hemoglobin A1c goal of less than 7.0% ([facility]) Inject 6 Units under the skin daily. 05/15/20 24 Active Albuterol Sulfate HFA 108 (90 Base) MCG/ACT Inhalation Aerosol SolutionIndication s:Mild intermittent asthma with exacerbation Inhale 1 Puff by mouth every 4 hours as needed for Wheezing. 18 g 5 05/15/20 24 Active Dexcom G7 Pony Roll Finisher DeviceIndications: Type 2 diabetes mellitus with diabetic nephropathy, with long-term current use of insulin ([facility]),Type 2 diabetes mellitus with hemoglobin A1c goal of less than 8.0% ([facility]) Use as directed. 1 Each 06/06/20 24 Active Dexcom G7 SensorIndications: Type 2 diabetes mellitus with diabetic nephropathy, with long-term current use of insulin ([facility]),Type 2 diabetes mellitus with hemoglobin A1c goal of less than 8.0% ([facility]) Use as directed every 10 days. 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 Patient has a line of itchy break [...] 10/09/2024 10:15 AM EDT Office Visit Ophthalmology, [facility] [address] [place] [address] [place], [address] [place] [address] 10/14/2024 9:40 AM EDT Office Visit General Internal Medicine [facility] [address] [facility] [place] [address] Amada Vasquez MD 200 [facility] [place] [address] Health Maintenance Due Date Last Done Comments [...] filedocumented as of this encounter Care Teams Retail Experience Specialist Relationship Specialty Start Date End Date Amada Vasquez MD [address] [place] [address] PCP - General Internal Medicine 01/14/24 documented as of this encounter
--- OUTSIDE RECORDS SUMMARY | 2024-09-03 20:19 | External Medical Summary | Summary of Care ---
Author Name Unknown Organization [facility] Address [address] [place] [address] Phone [phone] Care Team Providers Care Assembler Rubber Footwear Name Role Phone Amada Vasquez MD Primary Care Provider [phone] Reason for Visit * Reason Onset Date Comments Advice 08/13/2024 Encounter Details Date Type Department Care Team (Late st Contact Info) Description 08/13/2024 Telephone General Internal Medicine [facility] [address] [place] [address] Amada Vasquez MD [address] [place] [address] Advice Allergies Active Allergy Reactions Criticality Noted Date Comments Adhesive Tape 05/20/2019 Amlodipine 08/20/2019 Arformoterol Other (Please comment) 11/02/2015 Flare of asthma Budesonide Itching 03/04/2014 Pt reports itching in throat and ears after use. Calamine 11/16/1999 Chlorhexidine Rash 05/15/2024 Chondroitin 05/27/2010 Affect eyes Codeine Other (Please comment) 01/28/2019 nightmares Ipratropium [place] Hfa Cough 11/02/2015 Penicillins 11/16/1999 Statins Edema Other 05/08/2018 Severe swelling throughout body Sulfa Antibiotics 11/16/1999 Thimerosal (Thiomersal) Hives 09/14/2010 Neomycin-Bacitracin Zn-Polymyx Rash 09/14/2010 documented as of this encounter (statuses as of 08/13/2024) Medications GELATIN 600 MG PO CAPS Take 250 mg by mouth daily. Active ONE-A-DAY 50 PLUS PO TABS 08/24/19 13 Active BLOOD PRESSURE MONITOR/L CUFF MISCIndications:Pr oteinuria,HTN, goal below 130/80 for home bp log 1 Device 0 10/01/19 13 Active Additional Information Patient not taking.Reported on 05/15/2024 ASPIRIN 81 MG PO TABSIndications:Ki dney disease, chronic, stage IV (GFR 15-29 ml/min) ([facility]),Nephrotic syndrome 1 TABLET DAILY 30 Tab 5 [...] mellitus due to underlying condition ([facility]),Type 2 diabetes mellitus with diabetic nephropathy, with long-term current use of insulin ([facility]) TEST BLOOD SUGAR TWICE DAILY. Dx: E11.21 200 Strip 3 06/21/20 Active Additional Information Patient not taking.Reported on 05/15/2024 OneTouch UltraSoft LancetsIndications :Type 2 diabetes mellitus with diabetic nephropathy, with long-term current use of insulin ([facility]),Proliferativ e diabetic retinopathy of both eyes without macular edema associated with diabetes mellitus due to underlying condition ([facility]) Use to test blood sugar twice daily 200 Each 3 06/21/20 Active Additional Information Patient not taking.Reported on 05/15/2024 BD Pen Needle Short U/F 31G X 8 MM (Insulin Pen Needle)Indications :Type 2 diabetes mellitus with hemoglobin A1c goal of less than 7.0% ([facility]) USE 4 TIMES DAILY DIRECTED 100 Each [...] Ophthalmic Suspension (Brinzolamide-Brim onidine)Indication s:Diabetic macular edema ([facility]) INSTILL ONE DROP INTO RIGHT EYE TWICE [...] long-term current use of insulin ([facility]),Type 2 diabetes mellitus with hemoglobin A1c goal of less than 7.0% ([facility]) Inject 6 Units under the skin daily. 05/15/20 24 Active Albuterol Sulfate HFA 108 (90 Base) MCG/ACT Inhalation Aerosol SolutionIndication s:Mild intermittent asthma with exacerbation Inhale 1 Puff by mouth every 4 hours as needed for Wheezing. 18 g 5 05/15/20 24 Active Dexcom G7 Building Construction Engineer DeviceIndications: Type 2 diabetes mellitus with diabetic nephropathy, with long-term current use of insulin ([facility]),Type 2 diabetes mellitus with hemoglobin A1c goal of less than 8.0% ([facility]) Use as directed. 1 Each 06/06/20 24 Active Dexcom G7 SensorIndications: Type 2 diabetes mellitus with diabetic nephropathy, with long-term current use of insulin ([facility]),Type 2 diabetes mellitus with hemoglobin A1c goal of less than 8.0% ([facility]) Use as directed every 10 days. 9 Each 3 06/06/20 24 Active Levothyroxine Sodium 150 MCG Oral Tablet (Levoxyl)Indicatio ns:Acquired hypothyroidism Take 1 Tablet by mouth in the morning. (at least 30 min prior to breakfast or other meds). 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 Please advise patient that she needs to follow up with provider's office who completed procedure. * Telephone Encounter - Ginny Pascual OSA - 08/13/2024 3:02 PM EST procedure done aboout 3 weeks ago, with Dr Gavino Woodward ([facility]). Patient has a line of itchy break [...] Office Visit Ophthalmology, [facility] [address] [facility] [address] [place] [address] [place], [address] [place] [address] 10/14/2024 9:40 AM EDT Office Visit General Internal Medicine [facility] [address] [place] [address] Amada Vasquez MD [address] [facility] [place] [address] Health Maintenance Due Date Last Done Comments [...] filedocumented as of this encounter Care Teams Assembler Rubber Footwear Relationship Specialty Start Date End Date Amada Vasquez MD 200 [facility] [place] [address] PCP - General Internal Medicine 01/14/24 documented as of this encounter
[2024-09-03] MEDS: ALBUT/IPRATROP 3MG/0.5MG NEB 3 ML VIAL NEB SCH (20:20)
--- NOTE | 2024-09-03 20:33 | Discharge Summary ---
Discharge Summary Date of Service September 03, 2024 Principal Dx & Hospital Course #1 = Principal Diagnosis (1) Acute hypoxic respiratory failure: -2/2 sublgottic stenosis and perhaps pulmonary htn/pericardial effusion -original reason for presentation -initially on room air, then went apneic in CT scanner -intubated at CT scanner Plan: -comfort focused care -plan was to check DIC/TTP workup to r/o DIC/TTP, check CT neck for worsening stenosis -check echo for pericardial effusion -fluids ordered due to appearing fluid down, blood ordered as well (2) Shock: -occured when patient went for imaging, went into PEA with no pulse -underwent 2 rounds of resuscitation, both times with large pericardial effusion noted on bedside ultrasound -intubated during first attempt, complicated intubation given subglottic stenosis -likely cardiogenic vs. distributive vs. hemorrhagic shock given large pericardial effusion on bedside echos Plan: -comfort measures -s/p levophed, intubation -dilaudid for pain -ativan for agitation -glycopyrulate before extubation -eye and mouth care ordered -oxygen ordered for comfort -bisacodyl suppository ordered for constipation (3) ESRD on hemodialysis: -Primary interventional radiology tech is Dr. Antionette Yan. Undergoes HD M/W/F at [facility] which is complicated by difficulty with fistula, low Hgb and blood pressure -given duration of dialysis, patient likely has severe vascular disease and calcification leading to autonomic insufficiency Plan: -comfort measures (4) Subglottic stenosis: -Audible stridor with no evidence of respiratory distress on admission; maintaining upper 90s-100% O2 saturation on RA. -CT neck without contrast performed on 04/22/24 which revealed persistent moderate subglottic and upper tracheal stenosis secondary to eccentric soft tissue thickening, spanning around 1.6 cm in craniocaudal extent. Chronic issues with coughing and swallowing pills due to this. Mentions she can tolerate a regular diet however will place on full liquid diet for now and obtain speech therapy evaluation for further evaluation. Will obtain updated CT neck. Has an appointment on 10/07/[address] Dev Johnson, full time, at [facility] to discuss possible surgical intervention. Plan: -CT neck imaging ordered, patient unable to tolerate and coded in CT scanner with PEA arrest -rest of body imaged after first successful resuscitation (5) Abnormal ankle brachial index: Arterial duplex studies performed on 08/21/23. 50 to 74% stenosis of right PFA. Right TBI is moderately decreased and left TBI is severely decreased. Evaluated by Marline Tobar PA-C on 09/25/23 and follow-up was 01/01/24. Okay for compression per Dr. Leo, but she has declined. S/p right GSV Clarivein on 02/12/[address] Leo. Cool BLE to touch on exam. Will obtain repeat AMY studies and consult vascular surgery while inpatient in this regard. -also ordered runoff (6) Elevated troponin: -in setting of above (7) Prolonged QT interval: Suspect demand ischemia ISO underlying comorbidities. EKG with prolonged QTc of 523 but no evidence of acute ST changes. Appears somewhat chronically elevated. Continue to trend troponin Q6H until flat. EKG with chest pain PRN. Avoid QT- prolonging agents as able; repeat EKG daily x 2 to closely monitor QTc. -PEA arrest x2 noted (8) Pericardial effusion: Resting TTE done on 07/10/23 with the following findings: LVEF = 55%, severely enlarged LA, grade II DD, mild intravalvular AR, mild MS, mild MR, moderate TR, moderate pulmonary HTN with estimated pulmonary artery systolic pressure of 58mmHg and moderate circumferential pericardial effusion with most significant amount of focal fluid collection adjacent to the RA (cardiac tamponade is absent). Had repeat TTE ordered for earlier this month to be completed as an outpatient however this was not done. CXR notes globular cardiomegaly often associated with pericardial effusion or cardiomyopathy. Will obtain updated TTE. Possible that worsening pericardial effusion could be contributing to progressive SOB. Will await TTE results to determine need for inpatient cardiology consult/evaluation. -discussed with cardiology, brother and POA offered pericardial drain but declined given against patient wishes after second resuscitation attempt (9) Chronic diastolic CHF (congestive heart failure): -Most recent TTE results as per above. Plan Comfort focused care at this time. Notes For Next Care Provider Cynthia Razoty" Sánchez is a medically complex 79y/o F with extensive PMHx of insulin-dependent DMII, proliferative diabetic retinopathy of both eyes, diabetic macular edema of both eyes, HTN, HLD, chronic diastolic CHF, complete HB s/p pacemaker placement, s/p TAVR in 2021, history of pericardial effusion, moderate pulmonary HTN, acquired hypothyroidism, ESRD on HD complicated by intradialytic hypotension, anemia of chronic renal failure, subglottic stenosis, GERD without esophagitis, chronic constipation and generalized osteoarthritis who presented to the ED via EMS from [facility] after it was discovered her Hgb dropped from 10 to 7.3 and she has also been experiencing progressive SOB over the past several months. In the ED, noted to be hypotensive with stridor. Imaging ordered for neck given stridor, patient coded with PEA in CT scanner. ROSC achieved, admitted to ICU after ruffin scan. CT imaging showed pericardial effusion, low platelets noted. Patient coded second time in ICU, consideration for pericardial drain placement, brother next of kin decided to focus on comfort. Patient on 09/03/2024 at 7:12 PM. Medication Changes From Visit - Admission HPI Per Admitting Provider Cynthia"Sanjana" Sánchez is a medically complex 79y/o F with extensive PMHx of insulin-dependent DMII, proliferative diabetic retinopathy of both eyes, diabetic macular edema of both eyes, HTN, HLD, chronic diastolic CHF, complete HB s/p pacemaker placement, s/p TAVR in 2021, history of pericardial effusion, moderate pulmonary HTN, acquired hypothyroidism, ESRD on HD complicated by intradialytic hypotension, anemia of chronic renal failure, subglottic stenosis, GERD without esophagitis, chronic constipation and generalized osteoarthritis who presented to the ED via EMS from [facility] after it was discovered her Hgb dropped from 10 to 7.3 and she has also been experiencing progressive SOB over the past several months. History obtained from the patient, discussion with ED provider and associated chart review. Patient seen at bedside in the ED with Dr. Goel. Cannot have MRI imaging. Of note, patient states that her swallowing and breathing have been getting worse for the past few weeks. She states that she is lightheaded and not feeling well overall. She states that she has not be tolerating her dialysis well the past few weeks, getting lightheaded and feeling uncomfortable at the end of each session. She is concerned her fistula is not working well either. Discussed code status at length, risks and benefits explained. She states that she wants her brother to make decisions if she is unable, Tomas, and we attempted to call him in the room. She also stated she would like resuscitation, as long as there was a chance of survival and no chance of affecting her mentation. She would not want to suffer at end of life and would not want a prolonged course of resuscitation. Discharge Exam Gen: A&O 0 saavedra HEENT: NCAT, EOMI, not icteric. External ears normal. No rhinorrhea. dry mucous membranes. Lungs: no air movement CV: no pulse Abdomen: Soft, nondistended, No rebound tenderness. MSK: mottling noted Neuro: decreased, no reflexes Updated Medication List Medication Instructions Recorded Confirmed Type aspirin 81 mg tablet,delayed 81 mg PO HS 04/17/18 09/03/24 History release (Shannan Low Dose Aspirin) bisacodyl 5 mg tablet,delayed 5 mg PO QPM PRN Constipation 04/17/18 09/03/24 History release (Dulcolax (bisacodyl)) brinzolamide 1 %-brimonidine 0.2 % 1 drp ophthalmic (eye) BID 04/17/18 09/03/24 History eye drops,suspension (Simbrinza) calcium carbonate (Tums) 300 mg PO DAILY PRN Acid Reflux 04/17/18 09/03/24 History cholecalciferol (vitamin D3) 25 1,000 unit PO 5XWK 04/17/18 09/03/24 History mcg (1,000 unit) capsule gelatin 600 mg capsule 1 tab PO BID 04/17/18 09/03/24 History polyethylene glycol 3350 17 1 dose PO DAILY PRN Constipation 04/17/18 09/03/24 History gram/dose oral powder (Miralax) insulin aspart U-100 100 unit/mL 1 sliding scale dose subcut 06/05/23 09/03/24 History subcutaneous cartridge (Novolog USEASDIRECTD PenFill U-100 Insulin aspart) insulin glargine 100 unit/mL (3 4 - 7 unit subcut QPM 06/05/23 09/03/24 History mL) subcutaneous pen (Lantus Solostar U-100 Insulin) loratadine 10 mg tablet (Claritin) 5 mg PO HS 06/05/23 09/03/24 History fluticasone 100 mcg-salmeterol 50 1 inh inhalation BID 12/13/23 09/03/24 History mcg/dose blistr powdr for inhalation (Advair Diskus) acetaminophen 325 mg capsule 325 mg PO QID PRN Pain 07/22/24 09/03/24 History albuterol sulfate 90 mcg/actuation 2 puff inhalation DIRECTED PRN 09/03/24 09/03/24 History aerosol inhaler Shortness Of Breath Or Wheezing carboxymethylcellulose sodium 1 % 1 drp ophthalmic (eye) BID 09/03/24 09/03/24 History eye liquid gel drops docusate sodium 100 mg capsule 100 mg PO DAILY PRN Constipation 09/03/24 09/03/24 History (Colace) famotidine 40 mg tablet 40 mg PO QPM 09/03/24 09/03/24 History gabapentin 100 mg capsule 100 mg PO DAILY 09/03/24 09/03/24 History levothyroxine 150 mcg tablet 150 mcg PO DAILYBB 09/03/24 09/03/24 History linezolid 600 mg tablet 600 mg PO BID 09/03/24 09/03/24 History magnesium oxide 400 mg PO DIRECTED 09/03/24 09/03/24 History midodrine 5 mg tablet 5 - 10 mg PO BID 09/03/24 09/03/24 History rajysync-gsd-bmiht ac 400 1 tab PO DAILY 09/03/24 09/03/24 History mcg-calcium carb 500 mg-vit K1 20 mcg tablet (Women's 50 Plus Multivitamin) psyllium 1 tbsp PO DAILY PRN Constipation 09/03/24 09/03/24 History sennosides 8.6 mg-docusate sodium 1 tab-cap PO BID PRN Constipation 09/03/24 09/03/24 History 50 mg tablet (Senokot-S) sevelamer carbonate 800 mg tablet 1,600 mg PO TID 09/03/24 09/03/24 History sodium chloride, sodium 1 ea DIRECTED PRN Dry Nasal 09/03/24 09/03/24 History bicarb-nasal rinse squeeze bottle Passages with packet (Caro Sinus Rinse with packet) Hospital Stay Data Consultations 09/03/24 14:14 ED Decision to Admit Stat 09/03/24 15:40 Consult Vascular Surgery Stat 09/03/24 16:06 Consult Nephrology Routine Diagnostic Imagining Performed 09/03/24 15:40 US ankle brachial index [US ankle/brachial index ltd] Stat 09/03/24 16:38 CT ang AA runof w inc wo ifdon Stat CT angio chest PE protocol Stat CT head/brain wo con Stat 09/03/24 16:39 CT angio neck with con Stat 09/03/24 16:42 CT angio humerus LT wo/w con Stat 09/03/24 17:21 US point of care ultrasound Stat Total Time Total Time Spent Total Time Spent (In Minutes): I spent a total of 35 minutes in direct patient care, including [id number] time with the patient and/or family, reviewing medical records, ordering and reviewing diagnostic tests, and coordinating care with other healthcare providers. This time includes: history taking, physical examination, medical decision making, counseling, ECG interpretation, imaging interpretation, lab interpretation, orders, and education, excluding time spent in the performance of separately billed services.
[2024-09-03] MEDS ORDERED: MIDAZOLAM HCL 5 MG/ML 2ML VIAL IV ONE (21:09)
[2024-09-03] MEDS ORDERED: CALCIUM CHLORIDE 10% 10 ML SYR IV ONE (21:09)
[2024-09-03] MEDS ORDERED: SODIUM CHLORIDE 0.9% 10ML FLUSH IV ONE ×2 (21:09)
--- NOTE | 2024-09-04 06:35 | Electrocardiogram Report ---
Test Reason : Blood Pressure : */* mmHG Vent. Rate : 74 BPM Atrial Rate : 74 BPM P-R Int : * ms QRS Dur : 78 ms QT Int : 472 ms P-R-T Axes : * 110 265 degrees QTcB Int : 523 ms Ventricular-paced rhythm Abnormal ECG When compared with ECG of 07-May-2024 12:03, Premature ventricular complexes are no longer Present Confirmed by Farooq Ospina ([id number]) on 09/04/2024 6:34:47 AM Referred By: REFERRED SELF Confirmed By: Farooq Ospina
--- NOTE | 2024-09-05 05:27 | Electrocardiogram Report ---
Test Reason : Blood Pressure : */* mmHG Vent. Rate : 75 BPM Atrial Rate : 50 BPM P-R Int : * ms QRS Dur : 168 ms QT Int : 486 ms P-R-T Axes : * 99 86 degrees QTcB Int : 542 ms Ventricular-paced rhythm Abnormal ECG When compared with ECG of 03-Sep-2024 12:53, No significant change was found Confirmed by Farooq Ospina ([id number]) on 09/05/2024 5:27:27 AM Referred By: REFERRED SELF Confirmed By: Farooq Ospina
== END 2024-09-03 21:10 | disposition expired | DRG 154 ==
LOC: ED 12:49 → 1E 13:52